=== PATIENT | male | born 1950 | race Caucasian/White ===

== ENCOUNTER 2023-05-07 15:34 | Inpatient (IN) | payer OTHER, SELFPAY ==
--- NOTE | ~2023-05-07 | XR_ITS ---
EXAMINATION: XR CHEST CLINICAL INFORMATION: SIRS. COMPARISON: None available. TECHNIQUE: Frontal view of the chest was obtained. FINDINGS: The cardiomediastinal silhouette is normal. There has been a prior median sternotomy. There is no focal lung consolidation or pleural effusion. The bony structures and soft tissues are unremarkable. XR/XR chest 1V IMPRESSION: No active cardiopulmonary disease.
--- NOTE | ~2023-05-07 | CT_ITS ---
EXAMINATION: CT ABDOMEN AND PELVIS WITH CONTRAST CLINICAL INFORMATION: Diffuse abdominal pain. COMPARISON: None available. TECHNIQUE: Multidetector volumetric images were obtained from the superior aspect of the liver through the pubic symphysis following administration 85 mL of Omnipaque 350 intravenous contrast. Sagittal and coronal reformatted images were obtained on the technologist's workstation. Oral contrast: No This CT examination was performed using dose optimization techniques as appropriate, variously including the following: *Automated exposure control *Adjustment of mA and/or kV according to patient size (this includes techniques or standardized protocols for targeted exams where dose is matched to indication/reason for exam; i.e. extremities or head) *Use of iterative reconstruction technique DLP: 720 mGy-cm FINDINGS: LUNG BASES: There is mild posterior bibasilar linear scar/subsegmental atelectasis. LIVER, GALLBLADDER, AND BILIARY TREE: The liver is normal in size, shape, and attenuation. No focal hepatic lesion or biliary ductal dilatation is present. The gallbladder is unremarkable with no evidence of radiopaque gallstones, gallbladder wall thickening, or obvious pericholecystic inflammatory changes. PANCREAS: Unremarkable. SPLEEN: Unremarkable. ADRENAL GLANDS: Unremarkable. KIDNEYS AND URETERS: The kidneys are normal in size and shape. At the upper pole and interpolar aspect of the left kidney laterally (3:42 and 6:64), there is a sharply demarcated wedge-shaped perfusion defect noted. There is adjacent perinephric fat stranding. No bilateral hydronephroureter or urinary calculus is seen. BLADDER: Unremarkable. GASTROINTESTINAL TRACT: The small and large bowel are unremarkable. The appendix is unremarkable. ABDOMINAL WALL: There is a small fat-containing umbilical hernia. LYMPH NODES: Normal. VASCULAR: There is very mild aortic atherosclerotic calcification. No abdominal aortic aneurysm or dissection is seen. PELVIC VISCERA: The prostate and seminal vesicles are unremarkable. OSSEOUS STRUCTURES: There is multi-level marked thoracolumbar degenerative disc disease, spondylosis and facet arthropathy. In particular, there is vacuum disc phenomenon noted at T10-T11 and L4-L5. No acute or aggressive osseous finding is seen. Sternotomy wires are noted. CT/CT abdomen pelvis w IV con IMPRESSION: A large wedge-shaped perfusion defect is seen of the upper pole and interpolar aspect of the left kidney. There is adjacent perinephric stranding. No obstructive uropathy or calculus is noted. The imaging findings are most consistent with focal pyelonephritis or a focal renal infarction. Further differential considerations including drug-induced interstitial nephritis and renal lymphoma are considered unlikely. Recommend clinical correlation, including correlation with the patient's most recent urinalysis. Fleischner guidelines were followed.
[2023-05-07 16:30] VITALS: BP 162/93; PULSE 99; RESP 18; TEMP 37.1; O2SAT 96; BMI 28.1
--- NOTE | 2023-05-07 16:31 | ED.ABDPAIN ---
HPI - Abdominal Pain General Chief Complaint: Abdominal Pain Stated Complaint: abdominal pain, not eating since friday Time Seen by Provider: 05/07/23 17:31 Related Data Home Medications Medication Instructions Recorded Confirmed ascorbic acid (vitamin C) 500 mg 500 mg PO DAILY 05/07/23 05/07/23 tablet atorvastatin 40 mg tablet 40 mg PO BEDTIME 05/07/23 05/07/23 cholecalciferol (vitamin D3) 25 25 mcg PO DAILY 05/07/23 05/07/23 mcg (1,000 unit) tablet docusate sodium 100 mg capsule 200 mg PO BEDTIME 05/07/23 05/07/23 esomeprazole magnesium 40 mg 40 mg PO QAM 05/07/23 05/07/23 capsule,delayed release finasteride 5 mg tablet 5 mg PO DAILY 05/07/23 05/07/23 meclizine 25 mg tablet 25 mg PO BID 05/07/23 05/07/23 multivitamin 1 tab PO DAILY 05/07/23 05/07/23 tamsulosin 0.4 mg capsule 0.4 mg PO BEDTIME 05/07/23 05/07/23 warfarin 2 mg tablet 2 mg PO MOWEFR 05/07/23 05/07/23 warfarin 4 mg tablet 4 mg PO SUTUTHSA 05/07/23 05/07/23 Allergies Allergy/AdvReac Type Severity Reaction Status Date / Time No Known Allergies Allergy Verified 05/07/23 16:30 [facility] Past Medical History Medical History (Updated 05/11/23 @ 14:28 by Tod Clemens MD) BPV (benign positional vertigo) BPH (benign prostatic hyperplasia) HLD (hyperlipidemia) Surgical History (Updated 05/11/23 @ 14:28 by Tod Clemens MD) Mechanical heart valve present Social History Social History Household Members: None Housing: Apartment Do you presently have visiting nurse or other home services: No Patient Tobacco Use Status: Never used Tobacco Smoked in Last 30 Days: No Use of substances other than those prescribed or required for medical reasons: No Currently Displaying Signs/Symptoms of Drug Intoxication Withdrawal: No Have you been hit, kicked, punched, or otherwise hurt by someone within the past year? If so, by whom?: No Do you feel safe in your current relationship?: No Current Relationship Is there a partner from a previous relationship who is making you feel unsafe now?: No Are you made to feel afraid or neglected: No Adventism Healthcare Practices: Alev[facility] Advance Directives: No Advance Directives Information Provided: No Do you have thoughts of harming others: None Do you have a plan to hurt others: No Plan Recently lost weight without trying: Unsure How much weight loss: Unsure Eating poorly because of decreased appetite: Yes Nutrition screen score: 5 Nutrition Risks: Poor intake 0-25% >4 days Poor oral hygiene: No service: No Physical Exam ED Vital Signs: BMI result Body Mass Index 28.1 Course Course Course Narrative: RME: 73-year-old male with no significant past medical history presenting to the ED complaining of lower abdominal pain and nausea x3 days. Also reports generalized fatigue/weakness and dizziness & fever. denies constipation/diarrhea, dysuria/hematuria Abdomen soft/nontender Labs, UA ordered Full HPI, ROS and PE to be performed by primary ED provider. Medical Decision Making Lab Data 05/13/23 06:02 05/11/23 07:35 Labs: Lab Results 05/07/23 05/07/23 05/07/23 Range/Units 17:09 18:50 19:50 WBC 18.9 H (4.8-10.8) X10*3/uL RBC 5.28 (4.60-5.80) X10*6/uL Hgb 16.6 (14.0-18.0) g/dl Hct 47.8 (42.0-52.0) % MCV 90.5 (80.0-98.0) fL MCH 31.4 (27.0-33.0) pg MCHC 34.7 (31.0-36.0) g/dl RDW 13.1 (11.0-16.0) % Plt Count 130 L (160-400) X10*3/uL MPV 12.9 H (9.4-12.4) fL Immature Gran % (Auto) 0.4 (0.0-0.4) % Neut % (Auto) 84.5 H (45-73) % Lymph % (Auto) 6.7 L (20-40) % [place] % (Auto) 8.1 (2-11) % Eos % (Auto) 0.2 (0-4) % Baso % (Auto) 0.1 (0-2) % Lymph # (Auto) 1.3 (1.2-4.9) X10*3/uL [place] # (Auto) 1.5 H (0.1-1.2) X10*3/uL Eos # (Auto) 0.0 (0.0-0.4) X10*3/uL Baso # (Auto) 0.0 (0.0-0.2) X10*3/uL Abs Immat Gran (auto) 0.08 H (0.00-0.03) X10*3/uL Absolute Neuts (auto) 16.0 H (2.0-8.3) x10*3/uL Absolute Nucleated RBC 0.000 (0.0-0.012) X10*3/uL Nucleated RBC % (auto) 0.0 (0.0-0.2) /100WBC Smear Tech's Comments VERIFIED PT 31.0 H (11.1-13.3) SEC INR 2.5 H (0.9-1.1) Sodium 137 (135-145) mmol/L Potassium 4.3 (3.3-5.1) mmol/L Chloride 102 (96-108) mmol/L Carbon Dioxide 24 (22-29) mmol/L Anion Gap 15 (12-20) BUN 13 (9-16) mg/dL Creatinine 1.62 H (0.5-1.4) mg/dL Estim Creat Clear Calc 44.1 Estimated GFR 42 Random Glucose 171 H (60-115) mg/dL Calcium 9.5 (8.4-10.2) mg/dL Magnesium 1.8 (1.6-2.6) mg/dL Total Bilirubin 2.3 H (0.0-1.0) mg/dL Direct Bilirubin 0.7 H (0.0-0.5) mg/dL AST 38 H (5-37) U/L ALT 36 (0-40) U/L Alkaline Phosphatase 98 (39-117) U/L Troponin I High Sens 6.0 (<3.5-35.0) ng/L Total Protein 7.8 (6.5-8.0) g/dL Albumin 4.3 (3.5-5.0) g/dL Lipase 12 (8-78) U/L Urine Color Dark Yellow Urine Appearance Clear Urine pH 6.0 (5.0-9.0) Ur Specific [place] >= 1.030 H (1.005-1.025) Urine Protein 30 (1+) H (Neg-Trace) mg/dL Urine Glucose (UA) Negative (Negative) mg/dL Urine Ketones Negative (Negative) mg/dL Urine Blood Negative (Negative) Urine Nitrite Negative (Negative) Ur Leukocyte Esterase Negative (Negative) Urine RBC 3-5 H (0-2) /HPF Urine WBC 0-5 (0-5) /HPF Ur Squamous Epith Cells 0-2 (0-2) /HPF Urine Bacteria None Seen (None Seen) Hyaline Casts 0-2 (0-2) /LPF Medications Administered Generic Name Dose Route Start Last Admin Trade Name Freq PRN Reason Stop Dose Admin Acetaminophen 650 mg 05/12/23 15:28 05/12/23 15:50 Acetaminophen 325 Mg Tablet PO 650 mg Q6H PRN Administration Pain, Mild (Pain Scale 1-3) Al Hydroxide/Mg Hydroxide 30 ml 05/07/23 21:50 05/10/23 02:33 Magnesium Hydrox/Alum Hydrox 30 Ml Oral.Susp PO 30 ml Q4H PRN Administration Heartburn/Nausea Ascorbic Acid 500 mg 05/08/23 09:00 05/13/23 08:02 Ascorbic Acid 500 Mg Tablet PO 500 mg DAILY DUSTIN Administration Aspirin 81 mg 05/08/23 11:05 05/13/23 08:02 Aspirin Enteric Coated 81 Mg Tablet.Dr PO 81 mg DAILY DUSTIN Administration Atorvastatin Calcium 40 mg 05/08/23 21:00 05/12/23 20:42 Atorvastatin Calcium 40 Mg Tablet PO 40 mg BEDTIME DUSTIN Administration Dicyclomine HCl 10 mg 05/12/23 11:30 05/13/23 11:53 Dicyclomine Hcl 10 Mg Capsule PO 10 mg QIDACHS DUSTIN Administration Docusate Sodium 200 mg 05/08/23 21:00 05/12/23 20:43 Docusate Sodium 100 Mg Capsule PO 200 mg BEDTIME DUSTIN Administration Finasteride 5 mg 05/08/23 21:00 05/13/23 08:02 Finasteride 5 Mg Tablet PO 5 mg DAILY DUSTIN Administration Meclizine HCl 25 mg 05/08/23 09:00 05/13/23 08:01 Meclizine Hcl 25 Mg Tablet PO 25 mg BID DUSTIN Administration Melatonin 6 mg 05/07/23 21:50 05/08/23 20:12 Melatonin 3 Mg Tablet PO 6 mg BEDTIME PRN Administration Insomnia Metoprolol Tartrate 25 mg 05/10/23 09:55 05/13/23 08:01 Metoprolol Tartrate 25 Mg Tablet PO 25 mg BID DUSTIN Administration Protocol Morphine Sulfate 2 mg 05/13/23 09:20 05/13/23 09:46 Morphine Sulfate 2 Mg/Ml Cartridge IVPUSH 2 mg Q4H PRN Administration Pain, Severe (Pain Scale 7-10) Protocol Multivitamins/Vitamin C 1 tab 05/08/23 09:00 05/13/23 08:00 Multivitamin Tablet PO 1 tab DAILY DUSTIN Administration Nifedipine 30 mg 05/08/23 09:45 05/13/23 08:02 Nifedipine Er 30 Mg Tab.Er.24 PO 30 mg DAILY DUSTIN Administration Protocol Omeprazole 20 mg 05/09/23 16:30 05/13/23 05:53 Omeprazole 20 Mg Capsule.Dr PO 20 mg BID@0630,1630 DUSTIN Administration Ondansetron HCl 4 mg 05/07/23 21:50 05/13/23 11:53 Ondansetron Hcl 4 Mg/2 Ml Vial IVPUSH 4 mg Q8H PRN Administration Nausea and Vomiting Polyethylene Glycol 17 gm 05/11/23 11:50 05/13/23 08:02 Polyethylene Glycol 3350 17 Gm Powd.Pack PO 17 gm BID DUSTIN Administration Simethicone 80 mg 05/08/23 15:35 05/13/23 11:53 Simethicone 80 Mg Tab.Chew PO 80 mg QIDWMHS DUSTIN Administration Sodium Chloride 3 ml 05/08/23 00:00 05/13/23 08:10 0.9 % Sodium Chloride Flush 3 Ml Syringe IVFLUSH 3 ml QSHIFT DUSTIN Administration Tamsulosin HCl 0.4 mg 05/08/23 21:00 05/12/23 20:43 Tamsulosin Hcl 0.4 Mg Capsule PO 0.4 mg BEDTIME DUSTIN Administration Vitamin D 25 mcg 05/08/23 09:00 05/13/23 08:02 Cholecalciferol (Vitamin D3) 25 Mcg Tablet PO 25 mcg DAILY DUSTIN Administration Warfarin Sodium 2 mg 05/12/23 09:00 05/12/23 08:56 Warfarin Sodium 2 Mg Tablet PO 2 mg [id number] DUSTIN Administration Warfarin Sodium 4 mg 05/11/23 09:00 05/13/23 08:01 Warfarin Sodium 4 Mg Tablet PO 4 mg [id number] DUSTIN Administration Discontinued Medications Generic Name Dose Route Start Last Admin Trade Name Freq PRN Reason Stop Dose Admin Belladonna Alkaloids/Phenobarbital 5 ml 05/09/23 10:46 05/09/23 11:14 Phenobarb/Hyoscy/Atropine/Scop 10 Ml Elixir PO 05/09/23 10:47 5 ml ONCE ONE Administration Belladonna Alkaloids/Phenobarbital 5 ml 05/10/23 10:00 05/11/23 08:41 Phenobarb/Hyoscy/Atropine/Scop 10 Ml Elixir PO 5 ml TID DUSTIN Administration Belladonna Alkaloids/Phenobarbital 5 ml 05/11/23 11:13 05/11/23 16:28 Phenobarb/Hyoscy/Atropine/Scop 10 Ml Elixir PO 5 ml TID PRN Administration Abdominal pain Enoxaparin Sodium 90 mg 05/08/23 07:15 05/08/23 08:13 Enoxaparin Sodium 100 Mg/Ml Syringe 1 mg/kg (90 mg) 90 mg SUBCUT Administration Q12H [facility] Enoxaparin Sodium 90 mg 05/12/23 10:00 05/12/23 21:58 Enoxaparin Sodium 100 Mg/Ml Syringe 1 mg/kg (90 mg) 90 mg SUBCUT Administration Q12H [facility] Finasteride 5 mg 05/08/23 09:00 05/08/23 09:41 Finasteride 5 Mg Tablet PO Not Given DAILY [facility] Dextrose/Sodium Chloride 1,000 mls @ 100 mls/hr 05/07/23 22:00 05/09/23 15:59 D51/2ns IVCONT Infused .Q10H [facility] Infusion Ceftriaxone Sodium 1 gm/ 50 mls @ 100 mls/hr 05/09/23 15:45 05/10/23 15:58 Sodium Chloride IV Infused Q24H [facility] Infusion Lactated Ringer's 1,000 mls @ 100 mls/hr 05/10/23 11:00 05/11/23 08:17 Lr IVCONT 05/11/23 06:00 Infused .Q10H DUSTIN Infusion Lactulose 20 gm 05/08/23 15:35 05/09/23 09:47 Lactulose 20 Gm/30 Ml Solution PO Not Given BID DUSTIN Morphine Sulfate 2 mg 05/07/23 21:52 05/10/23 20:19 Morphine Sulfate 2 Mg/Ml Cartridge IVPUSH 2 mg Q6H PRN Administration Pain, Severe (Pain Scale 7-10) Protocol Omeprazole 20 mg 05/08/23 06:30 05/09/23 05:33 Omeprazole 20 Mg Capsule.Dr PO 20 mg DAILY@0630 [facility] Administration Warfarin Sodium 4 mg 05/08/23 18:00 05/08/23 17:30 Warfarin Sodium 4 Mg Tablet PO 4 mg [id number] [facility] Administration Warfarin Sodium 3.75 mg 05/08/23 00:16 05/08/23 00:54 Warfarin Sodium 1.25 Mg Halftab PO 05/08/23 00:17 3.75 mg NOW STA Administration Warfarin Sodium 5 mg 05/08/23 00:47 05/08/23 01:09 Warfarin Sodium 5 Mg Tablet PO 05/08/23 00:48 Not Given NOW STA Warfarin Sodium 1 mg 05/09/23 18:00 05/09/23 17:35 Warfarin Sodium 1 Mg Tablet PO 1 mg [email or web address] [facility] Administration Warfarin Sodium 2 mg 05/12/23 10:45 05/12/23 11:05 Warfarin Sodium 2 Mg Tablet PO 05/12/23 10:46 2 mg ONCE ONE Administration Discharge Plan Discharge Clinical Impression: Infarction of kidney Patient Disposition: Admitted As Inpatient Interventions: Admission Worksheet (ED) Last Done: 05/08/23 09:54 Discharge Date/Time: 05/08/23 09:54
--- NOTE | 2023-05-07 16:35 | ECG_ITS ---
Test Reason : ABDOMINAL PAIN Blood Pressure : / mmHG Vent. Rate : 104 BPM Atrial Rate : 104 BPM P-R Int : 154 ms QRS Dur : 130 ms QT Int : 352 ms P-R-T Axes : 039 -06 147 degrees QTc Int : 462 ms Sinus tachycardia with occasional Premature ventricular complexes Left bundle branch block Abnormal ECG No previous ECGs available Referred By: Maribell Alfredo Electronically Signed By:MARIA ESTHER YUNG
[2023-05-07 17:22] LABS: Basophils Percent Auto 0.1 % (0-2); Eosinophils Percent Auto 0.2 % (0-4); Hematocrit 47.8 % (42.0-52.0); Hemoglobin 16.6 g/dl (14.0-18.0); Imm Gran Abs Auto 0.08 X10*3/uL (0.00-0.03); Imm Gran Pct Auto 0.4 % (0.0-0.4); Lymphocytes Absolute Auto 1.3 X10*3/uL (1.2-4.9); Lymphocytes Percent Auto 6.7 % (20-40); MANUAL DIFF FLAG SCAN; Mean Corpuscular HGB Conc 34.7 g/dl (31.0-36.0); Mean Corpuscular Hemoglobin 31.4 pg (27.0-33.0); Mean Corpuscular Volume 90.5 fL (80.0-98.0); Mean Platelet Volume 12.9 fL (9.4-12.4); Monocytes Absolute Auto 1.5 X10*3/uL (0.1-1.2); Monocytes Percent Auto 8.1 % (2-11); Neutrophils Percent Auto 84.5 % (45-73); Platelet Count 130 X10*3/uL (160-400); Red Blood Count 5.28 X10*6/uL (4.60-5.80); Red Cell Distribution Width 13.1 % (11.0-16.0); SCAN SMEAR FLAG 1; White Blood Count 18.9 X10*3/uL (4.8-10.8)
[2023-05-07 17:33] LABS: Alanine Aminotransferase 36 U/L (0-40); Albumin Level 4.3 g/dL (3.5-5.0); Alkaline Phosphatase 98 U/L (39-117); Anion Gap 15 (12-20); Aspartate Amino Transferase 38 U/L (5-37); Bilirubin Direct 0.7 mg/dL (0.0-0.5); Bilirubin Total 2.3 mg/dL (0.0-1.0); Blood Urea Nitrogen 13 mg/dL (9-16); Calcium 9.5 mg/dL (8.4-10.2); Carbon Dioxide 24 mmol/L (22-29); Chloride 102 mmol/L (96-108); Creatinine Clr Calc Pharmacy 44.1; Estimated Glomerular Filt Rate 42; Glucose Random 171 mg/dL (60-115); Lipase 12 U/L (8-78); Magnesium 1.8 mg/dL (1.6-2.6); Potassium 4.3 mmol/L (3.3-5.1); Sodium 137 mmol/L (135-145); Total Protein 7.8 g/dL (6.5-8.0)
[2023-05-07 17:44] LABS: SLIDE REVIEW VERIFIED
--- NOTE | 2023-05-07 18:17 | ED_ITS ---
HPI - Abdominal Pain General Chief Complaint: Abdominal Pain Stated Complaint: abdominal pain, not eating since friday Time Seen by Provider: 05/07/23 17:31 History of Present Illness HPI narrative: Patient is a 73-year-old male presents today with having abdominal pain. The abdominal pain seems like it is like a pocket of air to patient. Decreased appetite. Mild nausea. There is no change in bowel movement. No history of abdominal surgery in past. Positive history of heart valve replacement. Patient is on Coumadin. No fever no chills. No chest pain or shortness of breath no diaphoresis. Patient is from home. Related Data Allergies Allergy/AdvReac Type Severity Reaction Status Date / Time No Known Allergies Allergy Verified 05/07/23 16:30 Review of Systems Review of Systems Positive abdominal pain Yes all other systems are reviewed and are negative PMFSH Past Medical History Attestation statement: The following information was validated with the patient. Social History Social History Smoked in Last 30 Days: No Use of substances other than those prescribed or required for medical reasons: No Advance Directives: No Advance Directives Information Provided: No Physical Exam ED Vital Signs: Vital Signs - 24 hr 05/07/23 16:30 05/07/23 18:18 05/07/23 18:19 Temperature 98.7 F Pulse Rate 99 101 H 105 H Respiratory Rate 18 Blood Pressure 162/93 H 141/97 H 135/102 H Pulse Oximetry 96 Oxygen Delivery Method Room Air 05/07/23 18:20 Temperature Pulse Rate 113 H Respiratory Rate Blood Pressure 141/105 H Pulse Oximetry Oxygen Delivery Method BMI result Body Mass Index 28.1 Appearance: Alert. Oriented X3. No acute distress. Eyes: Pupils equal, round and reactive to light. ENT: Pharynx normal. Neck: Normal inspection. Neck supple. No lymph nodes noted. No crepitus CVS: Normal heart rate and rhythm. Pulses normal. Normal S1 and S2 Respiratory: No respiratory distress. Breath sounds normal. No Wheezing. No rales Abdomen: Soft and nontender. No rigidity. No distention. good BS x4 Skin: Skin warm and dry. Normal skin color. Normal skin turgor. Extremities: No lower extremity edema. Neurovascular intact to all extremities. No Lacerations. No Rash Neuro: Oriented X 3. No motor deficit. No sensory deficit. Moving all extermities. No slurred speech Medical Decision Making Medical Decision Making [facility] Narrative: CT scan of the abdomen pelvis done as patient had elevated white count abdominal pain fairly diffuse history of having a mechanical heart valve is currently on Coumadin INR is 2.[address] scan was positive for having a left kidney infarction. Question etiology. Creatinine slightly elevated at 1.4. The findings discussed with Nephrology. Case discussed with the hospitalist team. Will admit patient for further evaluation. No additional anticoagulation at this 9. CT scan showed no obstruction no abscess no perforation. Patient's urine showed no signs of UTI. 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 05/07/23 17:09 05/07/23 17:09 Labs: Lab Results 05/07/23 05/07/23 05/07/23 Range/Units 17:09 18:50 19:50 WBC 18.9 H (4.8-10.8) X10*3/uL RBC 5.28 (4.60-5.80) X10*6/uL Hgb 16.6 (14.0-18.0) g/dl Hct 47.8 (42.0-52.0) % MCV 90.5 (80.0-98.0) fL MCH 31.4 (27.0-33.0) pg MCHC 34.7 (31.0-36.0) g/dl RDW 13.1 (11.0-16.0) % Plt Count 130 L (160-400) X10*3/uL MPV 12.9 H (9.4-12.4) fL Immature Gran % (Auto) 0.4 (0.0-0.4) % Neut % (Auto) 84.5 H (45-73) % Lymph % (Auto) 6.7 L (20-40) % [place] % (Auto) 8.1 (2-11) % Eos % (Auto) 0.2 (0-4) % Baso % (Auto) 0.1 (0-2) % Lymph # (Auto) 1.3 (1.2-4.9) X10*3/uL [place] # (Auto) 1.5 H (0.1-1.2) X10*3/uL Eos # (Auto) 0.0 (0.0-0.4) X10*3/uL Baso # (Auto) 0.0 (0.0-0.2) X10*3/uL Abs Immat Gran (auto) 0.08 H (0.00-0.03) X10*3/uL Absolute Neuts (auto) 16.0 H (2.0-8.3) x10*3/uL Absolute Nucleated RBC 0.000 (0.0-0.012) X10*3/uL Nucleated RBC % (auto) 0.0 (0.0-0.2) /100WBC Smear Tech's Comments VERIFIED PT 31.0 H (11.1-13.3) SEC INR 2.5 H (0.9-1.1) Sodium 137 (135-145) mmol/L Potassium 4.3 (3.3-5.1) mmol/L Chloride 102 (96-108) mmol/L Carbon Dioxide 24 (22-29) mmol/L Anion Gap 15 (12-20) BUN 13 (9-16) mg/dL Creatinine 1.62 H (0.5-1.4) mg/dL Estim Creat Clear Calc 44.1 Estimated GFR 42 Random Glucose 171 H (60-115) mg/dL Calcium 9.5 (8.4-10.2) mg/dL Magnesium 1.8 (1.6-2.6) mg/dL Total Bilirubin 2.3 H (0.0-1.0) mg/dL Direct Bilirubin 0.7 H (0.0-0.5) mg/dL AST 38 H (5-37) U/L ALT 36 (0-40) U/L Alkaline Phosphatase 98 (39-117) U/L Troponin I High Sens 6.0 (<3.5-35.0) ng/L Total Protein 7.8 (6.5-8.0) g/dL Albumin 4.3 (3.5-5.0) g/dL Lipase 12 (8-78) U/L Urine Color Dark Yellow Urine Appearance Clear Urine pH 6.0 (5.0-9.0) Ur Specific [place] >= 1.030 H (1.005-1.025) Urine Protein 30 (1+) H (Neg-Trace) mg/dL Urine Glucose (UA) Negative (Negative) mg/dL Urine Ketones Negative (Negative) mg/dL Urine Blood Negative (Negative) Urine Nitrite Negative (Negative) Ur Leukocyte Esterase Negative (Negative) Urine RBC 3-5 H (0-2) /HPF Urine WBC 0-5 (0-5) /HPF Ur Squamous Epith Cells 0-2 (0-2) /HPF Urine Bacteria None Seen (None Seen) Hyaline Casts 0-2 (0-2) /LPF Independent Interpretation I performed an independent interpretation of an: EKG (My interpretation of patient's EKG showed a sinus pattern with a heart rate approximately 70. There is a left bundle-branch blocks) and CT Scan Interpretation: no overt obstruction abscess Radiology Impression Discussion of test interpretation with radiology: I have reviewed the radiologist's reading. Independent Historian Clinical information obtained from an independent historian. History obtained from or confirmed by: Spouse Chronic Conditions History of having a mechanical heart valve. Discharge Plan Discharge Clinical Impression: Infarction of kidney Patient Disposition: Admitted As Inpatient
[2023-05-07 18:18] VITALS: BP 141/97; PULSE 101
[2023-05-07 18:19] VITALS: BP 135/102; PULSE 105
[2023-05-07 18:20] VITALS: BP 141/105; PULSE 113
[2023-05-07 19:02] LABS: INTERNATIONAL NORM RATIO 2.5 (0.9-1.1)
--- NOTE | 2023-05-07 19:18 | PC.NURSE ---
This news writer assumed care at 1900, [place] speaking, AOx4, pt speaking in full sentences, pt reporting 2/10 lower abdominal pain x3 days. Reporting weakness, with decreased PO intake. Lung sounds clear bilaterally, denies CP/SOB. Meds given per MAR, pt resting with no apparent distress, Family at bedside, updated with plan of care.
[2023-05-07 20:08] LABS: Appearance Urine Clear; Color Urine Dark Yellow; Glucose Urine UA Negative (Negative); Leukocyte Esterase Urine Negative (Negative); Nitrite Urine Negative (Negative); Specific Gravity - Urine >= 1.030 (1.005-1.025); UMIC TRIGGER UACC YES; Urine Blood Negative (Negative); Urine Ketones Negative (Negative); Urine Protein 30 (1+) mg/dL (Neg-Trace)
[2023-05-07 20:10] LABS: Bacteria Urine None Seen (None Seen); Hyaline Casts Urine 0-2 /LPF (0-2); Squamous Epithelial Cell Urine 0-2 /HPF (0-2); WBC Urine 0-5 /HPF (0-5)
--- NOTE | 2023-05-07 21:10 | PHA.MEDREC ---
Pharmacy Consult ? Medication Reconciliation Pharmacy has completed the medication reconciliation. Patient reported medications. Reported Atorvastatin however no claim history. Chante Iniguez, ZoraD
--- NOTE | 2023-05-07 21:30 | PM.IMHP ---
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 He is a predominantly Polish-speaking patient; her daughter, who speaks, preferred to translate instead of an photograph tinter. The patient was brought to the ED for evaluation of 3 days of abdominal pain in the lower abdomen of various intensity, constant, associated with nausea, but no vomiting, no fever, and normal bowel function. Work up: WBC 18 K,? Cr 1.6 ( last record at [facility] in 2020 was 1.4). CT of the abdomen and pelvis show: A large wedge-shaped perfusion defect in the upper pole and interpolar aspect of the left kidney. There is adjacent perinephric stranding. No obstructive uropathy or calculus is noted. The imaging findings are most consistent with focal pyelonephritis or a focal renal infarction. UA: increase specific gravity, high protein, normal nitrite, and leukocytes) has no dysuria.? Review of Systems Review of Systems: Gen: no fever Resp: no sob, no cough CV: no chest, no ALDRIDGE, no leg edema GI: No n/v, + abd pain Neuro: No confusion Yes all other systems are reviewed and are negative [facility] Medical History (Updated 05/09/23 @ 15:58 by Aron Peralta MD) BPV (benign positional vertigo) BPH (benign prostatic hyperplasia) HLD (hyperlipidemia) Surgical History (Updated 05/08/23 @ 12:02 by Jesus Vyas MD) Mechanical heart valve present Social History Household Members: None Housing: Apartment Do you presently have visiting nurse or other home services: No Patient Tobacco Use Status: Never used Tobacco Smoked in Last 30 Days: No Use of substances other than those prescribed or required for medical reasons: No Currently Displaying Signs/Symptoms of Drug Intoxication Withdrawal: No Have you been hit, kicked, punched, or otherwise hurt by someone within the past year? If so, by whom?: No Do you feel safe in your current relationship?: No Current Relationship Is there a partner from a previous relationship who is making you feel unsafe now?: No Are you made to feel afraid or neglected: No L[employer] Healthcare Practices: Jainism Advance Directives: No Advance Directives Information Provided: No Do you have thoughts of harming others: None Do you have a plan to hurt others: No Plan Recently lost weight without trying: Unsure How much weight loss: Unsure Eating poorly because of decreased appetite: Yes Nutrition screen score: 5 Nutrition Risks: Poor intake 0-25% >4 days Poor oral hygiene: No service: No Meds Allergies Allergy/AdvReac Type Severity Reaction Status Date / Time No Known Allergies Allergy Verified 05/07/23 16:30 Home Medications Medication Instructions Recorded Confirmed Last Taken Type ascorbic acid (vitamin C) 500 mg 500 mg PO DAILY 05/07/23 05/07/23 Unknown History tablet atorvastatin 40 mg tablet 40 mg PO BEDTIME 05/07/23 05/07/23 Unknown History cholecalciferol (vitamin D3) 25 25 mcg PO DAILY 05/07/23 05/07/23 Unknown History mcg (1,000 unit) tablet docusate sodium 100 mg capsule 200 mg PO BEDTIME 05/07/23 05/07/23 Unknown History esomeprazole magnesium 40 mg 40 mg PO QAM 05/07/23 05/07/23 Unknown History capsule,delayed release finasteride 5 mg tablet 5 mg PO DAILY 05/07/23 05/07/23 Unknown History meclizine 25 mg tablet 25 mg PO BID 05/07/23 05/07/23 Unknown History multivitamin 1 tab PO DAILY 05/07/23 05/07/23 Unknown History tamsulosin 0.4 mg capsule 0.4 mg PO BEDTIME 05/07/23 05/07/23 Unknown History warfarin 2 mg tablet 2 mg PO MOWEFR 05/07/23 05/07/23 Unknown History warfarin 4 mg tablet 4 mg PO SUTUTHSA 05/07/23 05/07/23 Unknown History Physical Exam Vital Signs and Narrative: Vital Signs: Last Vital Signs Temp 98.7 F 05/07/23 16:30 Pulse 113 H 05/07/23 18:20 Resp 18 05/07/23 16:30 BP 141/105 H 05/07/23 18:20 Pulse Ox 96 05/07/23 16:30 O2 Del Method Room Air 05/07/23 16:30 BMI result Body Mass Index 28.1 Const: Other: Constitutional: Alert, in no distress, overweight. Mental Status: Oriented to person, place and time. Eyes: Pupils are equal, round and reactive to light. Ear, Nose and Throat: Oropharynx clear, mucous membranes moist. Ears and nose without eformities. Respiratory: Clear to auscultation. No wheezing, rales or rhonchi. Cardiovascular: S1 S2 regular. No murmurs, rubs or gallops. Gastrointestinal: Abdomen soft, non-tender, non-distended. Normal bowel sounds.? Neurologic: Cranial nerves II-XII grossly intact. No focal neurological deficits. Moves all extremities spontaneously.? Skin: No rashes or lesions.? Musculoskeletal: No cyanosis or clubbing. Psychiatric: Normal mood and affect? Results Labs 05/09/23 06:28 05/09/23 06:28 Labs: Laboratory Results - last 24 hr 05/07/23 05/07/23 05/07/23 17:09 18:50 19:50 MCV 90.5 MCH 31.4 MCHC 34.7 RDW 13.1 Plt Count 130 L MPV 12.9 H Immature Gran % (Auto) 0.4 Neut % (Auto) 84.5 H Lymph % (Auto) 6.7 L Meriwether % (Auto) 8.1 Eos % (Auto) 0.2 Baso % (Auto) 0.1 Lymph # (Auto) 1.3 Meriwether # (Auto) 1.5 H Eos # (Auto) 0.0 Baso # (Auto) 0.0 Abs Immat Gran (auto) 0.08 H Absolute Neuts (auto) 16.0 H Absolute Nucleated RBC 0.000 Nucleated RBC % (auto) 0.0 Smear Tech's Comments VERIFIED PT 31.0 H INR 2.5 H Anion Gap 15 Estim Creat Clear Calc 44.1 Estimated GFR 42 Random Glucose 171 H Calcium 9.5 Magnesium 1.8 Total Bilirubin 2.3 H Direct Bilirubin 0.7 H AST 38 H ALT 36 Alkaline Phosphatase 98 Total Protein 7.8 Albumin 4.3 Lipase 12 Urine Color Dark Yellow Urine Appearance Clear Urine pH 6.0 Ur Specific Ashley >= 1.030 H Urine Protein 30 (1+) H Urine Glucose (UA) Negative Urine Ketones Negative Urine Blood Negative Urine Nitrite Negative Ur Leukocyte Esterase Negative Urine RBC 3-5 H Urine WBC 0-5 Ur Squamous Epith Cells 0-2 Urine Bacteria None Seen Hyaline Casts 0-2 Imaging Radiologist's Impressions: Impressions Abdomen/Pelvis CT 05/07/23 19:31 IMPRESSION: A large wedge-shaped perfusion defect is seen of the upper pole and interpolar aspect of the left kidney. There is adjacent perinephric stranding. No obstructive uropathy or calculus is noted. The imaging findings are most consistent with focal pyelonephritis or a focal renal infarction. Further differential considerations including drug-induced interstitial nephritis and renal lymphoma are considered unlikely. Recommend clinical correlation, including correlation with the patient's most recent urinalysis. Fleischner guidelines were followed. 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 Continue coumadin at this time, increase dose with goal of INR 3 to 3.5 Nephro consult in AM, hypercoag work up. youth nutritional monitor to exclude AFIB BPH-- continue finasteride, Flomax. Leukocytosis + Tachycardia (SIRS) likely related to renal infarct, UA doesn't, negative fever doesn't support Pyelonephritis. MACRIO--Probablye CKD 3, Last known creatine at [facility] in Aug 2020 was 1. 4, IVF, recheck in AM, Nephro consult as stated Mechanical heart valve--Details not available ( since age 47), will get xray to see if will help delineate this DVT p: coumadin Full code Admit for at least 2 midnights for management of acute renal infarct, MARCIO Time Spent With Patient Time: Total time managing care of this patient today ____ minutes. Quality Stroke Does the patient have a stroke diagnosis?: No VTE Prior VTE?: No VTE Risk Level:: Medical - moderate - high VTE Device Contraindication: Treatment Not Indicated VTE Drug Contraindication: N/A - Med Ordered
[2023-05-07] MEDS: Dextrose 5 % and 0.45 % NaCl 1,000 ML 100 ML IVCONT (22:50)
[2023-05-07 23:00] VITALS: BP 142/86; PULSE 98; RESP 12; TEMP 36.9; O2SAT 95
[2023-05-08] MEDS: Warfarin Sodium 1.25 MG HALFTAB 3.75 MG PO (00:54)
--- NOTE | 2023-05-08 00:59 | PC.NURSE ---
1.25 mg warfarin tablets not available in [facility] or in house, pharmacy called and suggested provider to change order. Provider Dr. Holloway made aware. New order for 3.75 mg warfarin, [facility] will not let remove 5 mg warfarin tablet. Override made by charge nurse Arminda. Warfarin given.
[2023-05-08 05:20] VITALS: PULSE 99; RESP 19
--- NOTE | 2023-05-08 05:22 | PC.NURSE ---
Pt appears to be sleeping, awakens easily with verbal stimuli, IV fluids running per MAR. Pt using urinal at bedside. Pt remains NPO. Pt updated on plan of care.
[2023-05-08 06:00] VITALS: BP 144/101; PULSE 97; RESP 16; O2SAT 96
[2023-05-08 06:29] LABS: MANUAL DIFF FLAG NO
[2023-05-08 06:42] LABS: INTERNATIONAL NORM RATIO 2.7 (0.9-1.1); Prothrombin Time 32.5 SEC (11.1-13.3)
[2023-05-08 06:48] LABS: Alanine Aminotransferase 37 U/L (0-40); Albumin Level 3.8 g/dL (3.5-5.0); Alkaline Phosphatase 92 U/L (39-117); Anion Gap 15 (12-20); Aspartate Amino Transferase 37 U/L (5-37); Bilirubin Total 1.7 mg/dL (0.0-1.0); Blood Urea Nitrogen 12 mg/dL (9-16); Calcium 9.2 mg/dL (8.4-10.2); Carbon Dioxide 22 mmol/L (22-29); Chloride 101 mmol/L (96-108); Estimated Glomerular Filt Rate 47; Glucose Random 193 mg/dL (60-115); Potassium 3.9 mmol/L (3.3-5.1); Sodium 134 mmol/L (135-145)
[2023-05-08] MEDS: Omeprazole 20 MG CAPSULE.DR PO (06:53)
[2023-05-08 06:57] LABS: Basophils Percent Auto 0.2 % (0-2); Hematocrit 45.3 % (42.0-52.0); Hemoglobin 15.6 g/dl (14.0-18.0); Imm Gran Abs Auto 0.11 X10*3/uL (0.00-0.03); Imm Gran Pct Auto 0.6 % (0.0-0.4); Lymphocytes Absolute Auto 1.2 X10*3/uL (1.2-4.9); Lymphocytes Percent Auto 6.8 % (20-40); Mean Corpuscular HGB Conc 34.4 g/dl (31.0-36.0); Mean Corpuscular Hemoglobin 31.8 pg (27.0-33.0); Mean Corpuscular Volume 92.3 fL (80.0-98.0); Mean Platelet Volume 13.6 fL (9.4-12.4); Monocytes Absolute Auto 1.4 X10*3/uL (0.1-1.2); Monocytes Percent Auto 8.3 % (2-11); Neutrophils Absolute Auto 14.5 x10*3/uL (2.0-8.3); Neutrophils Percent Auto 84.1 % (45-73); Platelet Count 107 X10*3/uL (160-400); Red Blood Count 4.91 X10*6/uL (4.60-5.80); Red Cell Distribution Width 13.2 % (11.0-16.0); White Blood Count 17.3 X10*3/uL (4.8-10.8)
--- NOTE | 2023-05-08 07:00 | CA_ITS ---
Transthoracic Echocardiogram Patient (Last, First, Middle): Ean Brown, Gender: Male Date of : 1950 Age: 73 Procedure Date: 05/08/2023 Procedure Type: Transthoracic Echocardiogram Location: S3E Height: 175.26 cm Weight: 86.18 kg BSA: 2.02 m2 Heart Rate: 90 bpm BP: 139 / 101 mmHg Environmental Web Crawler: SRINIVAS/ROMAINE Referring MD: Miguel Holloway MD Symptoms: thromboembolism to kidney Study Quality: Fair, contrast ECG Rhythm: Sinus Conclusions: - The left ventricular systolic function is normal. The visually estimated ejection fraction is between 55-60%. - There is moderate septal asymmetric hypertrophy. - A mechanical prosthetic aortic valve is present. The prosthetic aortic valve appears to be functioning normally. 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 Findings Procedure Information Contrast agent, definity, is being given per protocol without apparent complications. Left Ventricle Normal left ventricular cavity size. The left ventricular systolic function is normal. The visually estimated ejection fraction is between 55-60%. There is no evidence of regional wall motion abnormalities. Evidence suggests grade I (mild) diastolic dysfunction. There is moderate septal asymmetric hypertrophy. (septal measurement probably overestimate) Right Ventricle Normal right ventricular cavity size. There is mildly decreased right ventricular systolic function. Atria Both atria are normal in size. Aortic Valve A mechanical prosthetic aortic valve is present. The prosthetic aortic valve appears to be functioning normally. The aortic valve was not well visualized. The mean gradient is 9 mmHg. The aortic valve area is 1.93 cm2. There is no aortic valve regurgitation. Mitral Valve The mitral valve appears normal. There is trace mitral valve regurgitation. There is no mitral valve stenosis. Pulmonic Valve The pulmonic valve is likely normal. Tricuspid Valve Normal tricuspid valve structure. There is trace tricuspid valve regurgitation. There is no evidence of pulmonary hypertension. Great Vessels The asc aorta is normal in size. 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 Venous The inferior vena cava was not well visualized. Pericardium/Pleural There is no evidence of pericardial effusion. Prior Study Comparison No prior study available for comparison. Measurements 2D Linear Measurements IVSd: 2.14 0.6-0.9/0.6-1.0 cm LVIDd: 3.20 3.9-5.3/4.2-5.9 cm LVIDd Index: 1.58 2.4-3.2/2.2-3.1 cm/m2 LVIDs: 2.22 2.0-3.6 cm LVPWd: 0.69 0.7-1.1 cm LV Mass: 194.40 67-162/88-224 g LV Mass Index: 96.24 43-95/49-115 g/m2 LVOT Diam: 2.30 3.0+(-)1.3 cm 2D Systolic Function EF 4C: 41.30 >55% EF 2C: 55.20 >55% EF BiP: 47.80 >55% Mitral Valve MV Pk E: 0.36 MV PK A: 0.88 MV Decel Time: 118.00 E/A: 0.40 E'Lateral: 6.85 E/E' Lat: 5.20 PHT: 34.00 MVA PHT: 6.47 Decel Rich: 3.02 Aortic Valve AoV Pk Live: 1.87 AoV Mn Live: 1.45 AoV VTI: 0.28 AoV Pk Grad: 14.00 Aov Mn Grad: 9.00 JACQUELINE Cont.VTI: 1.93 LVOT LVOT Pk Live: 0.79 LVOT Mn Live: 0.57 LVOT VTI: 0.13 LVOT Pk Grad: 2.00 LVOT Mn Grad: 2.00 LVOT Diam: 2.30 LVOT Area: 4.15 Diastolic Function MV Pk E: 0.36 MV Pk A: 0.88 E/A: 0.40 E' Laterial: 6.85 E/E' Lat: 5.20 Right Ventricle TAPSE (mm): 14.10 TVS' Live: 8.27 Tricuspid Valve TR Pk Live: 1.94 TR Pk Grad: 15.00 RA Press: 3.00 RVSP: 18.00 Great Vessels Aorta Sinus of Valsalva: 3.70 2.0-3.5 cm Ao Asc: 3.40 2.1-3.4 cm Ao Arch: 4.10 Pulmonary Valve PV Pk Live: 0.81 Peak PV Grad: 3.00 Updated in Other Vendor System with Status of Final Jesus Vyas MD electronically signed on 05/08/2023 12:56:37 PM with status of Final
--- NOTE | 2023-05-08 08:41 | PC.NURSE ---
nurse-nurse report given
[2023-05-08] MEDS: Dextrose 5 % and 0.45 % NaCl 1,000 ML 100 ML IVCONT (09:23)
[2023-05-08] MEDS: Multivitamin TABLET 1 TAB PO (09:40)
[2023-05-08] MEDS: Ascorbic Acid 500 MG TABLET PO (09:40)
[2023-05-08] MEDS: Cholecalciferol (Vitamin D3) 25 MCG TABLET PO (09:40)
[2023-05-08] MEDS: Meclizine HCl 25 MG TABLET PO (09:40)
[2023-05-08 09:49] VITALS: BP 147/79; PULSE 86; RESP 16; TEMP 36.6; O2SAT 95
[2023-05-08 09:50] VITALS: BMI 27.8
--- NOTE | 2023-05-08 10:20 | PM.CNCAR ---
History of Present Illness History of Present Illness Date of Service: 05/08/23 Chief complaint: MARCIO,Renal infarct Narrative: This is a cardiology consultation regarding question of cardiac source of embolus. Patient is Iraqi-speaking but he is able to speak some Bahamian. Also, I used a lang interpreter to communicate. He states that he used to go to a college and career counselor in [place] but has not been there recently. Apparently, has a history of mechanical valve replacement-seems aortic valve replacement for records. That was done for severe aortic stenosis. Around 1996 or so. He is on long-term warfarin but do not see any aspirin list. Current presentation is because of abdominal pain for the last few days. 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 Hence Cardiology has been consulted. With regard to the anticoagulation, INR is 2.5 on arrival but today it is 3.1. Hence definitely not subtherapeutic. Review of Systems Review of Systems: Yes all other systems are reviewed and are negative Constitutional: Constitutional: Reports as per HPI and Reports no additional constitutional complaints Eyes: Eyes: Reports as per HPI and Denies no additional eye complaints ENT: Denies system reviewed and no additional complaints, except as documented and Reports as per HPI Cardiovascular: Cardiovascular: Reports as per HPI, Reports no additional cardiovascular complaints, Denies acrocyanosis, Denies cool extremities, Denies chest pain, Denies leg edema, Denies lightheadedness, Denies palpitations and Denies dyspnea Respiratory: Respiratory: Reports as per HPI, Denies no additional respiratory complaints and Denies dyspnea Gastrointestinal: Gastrointestinal: Reports as per HPI and Denies no additional gastrointestinal complaints Genitourinary: Genitourinary: Reports no additional male genitourinary complaints and Reports as per HPI Musculoskeletal: Musculoskeletal: Reports no additional musculoskeletal complaints and Reports as per HPI Integumentary/Breasts: Skin/Breast: Reports system reviewed and no additional complaints, except as docu Neurologic: Reports system reviewed and no additional complaints, except as documented and Reports as per HPI Psychiatric: Psychiatric: Reports no additional psychiatric complaints and Reports as per HPI Endocrine: Endocrine: Reports no additional endocrine complaints, Reports as per HPI and Denies palpitations Hematologic/Lymphatic: Hematologic/Lymphatic: Reports no additional hematologic/lymphatic complaints and Reports as per HPI Allergic/Immunologic: Allergic/Immunologic: Reports no additional allergic/immunologic complaints and Reports as per HPI [facility] Past Medical History Medical History (Updated 05/08/23 @ 12:02 by Jesus Vyas MD) BPV (benign positional vertigo) BPH (benign prostatic hyperplasia) HLD (hyperlipidemia) Family History Pertinent family history: No significant past medical history pertinent to this presentation. Surgical History Surgical History (Updated 05/08/23 @ 12:02 by Jesus Vyas MD) Mechanical heart valve present Social History Social History Household Members: None Housing: Apartment Do you presently have visiting nurse or other home services: No Patient Tobacco Use Status: Never used Tobacco Smoked in Last 30 Days: No Use of substances other than those prescribed or required for medical reasons: No Have you been hit, kicked, punched, or otherwise hurt by someone within the past year? If so, by whom?: No Do you feel safe in your current relationship?: No Current Relationship Is there a partner from a previous relationship who is making you feel unsafe now?: No Are you made to feel afraid or neglected: No Sikhism Healthcare Practices: Latter-Day Advance Directives: No Advance Directives Information Provided: No Do you have thoughts of harming others: None Do you have a plan to hurt others: No Plan Recently lost weight without trying: Unsure How much weight loss: Unsure Eating poorly because of decreased appetite: Yes Nutrition screen score: 5 Nutrition Risks: Poor intake 0-25% >4 days Poor oral hygiene: No Meds Allergies Allergy/AdvReac Type Severity Reaction Status Date / Time No Known Allergies Allergy Verified 05/07/23 16:30 Active Medications: Current Medications Acetaminophen (Acetaminophen Supp 650 Mg Supp.Rect) 650 mg CA Q6H PRN PRN Reason: Pain, Mild (Pain Scale 1-3) Al Hydroxide/Mg Hydroxide (Magnesium Hydrox/Alum Hydrox 30 Ml Oral.Susp) 30 ml PO Q4H PRN PRN Reason: Heartburn/Nausea Ascorbic Acid (Ascorbic Acid 500 Mg Tablet) 500 mg PO DAILY [facility] Last Admin: 05/08/23 09:40 Dose: 500 mg Atorvastatin Calcium (Atorvastatin Calcium 40 Mg Tablet) 40 mg PO BEDTIME [facility] Docusate Sodium (Docusate Sodium 100 Mg Capsule) 200 mg PO BEDTIME [facility] Enoxaparin Sodium (Enoxaparin Sodium 100 Mg/Ml Syringe) 90 mg 1 mg/kg (90 mg) SUBCUT Q12H [facility] Last Admin: 05/08/23 08:13 Dose: 90 mg Finasteride (Finasteride 5 Mg Tablet) 5 mg PO DAILY [facility] Dextrose/Sodium Chloride (D51/2ns) 1,000 mls @ 100 mls/hr IVCONT .Q10H [facility] Last Admin: 05/08/23 09:23 Dose: 100 mls/hr Meclizine HCl (Meclizine Hcl 25 Mg Tablet) 25 mg PO BID [facility] Last Admin: 05/08/23 09:40 Dose: 25 mg Melatonin (Melatonin 3 Mg Tablet) 6 mg PO BEDTIME PRN PRN Reason: Insomnia Morphine Sulfate (Morphine Sulfate 2 Mg/Ml Cartridge) 2 mg IVPUSH Q6H PRN; Protocol PRN Reason: Pain, Severe (Pain Scale 7-10) Multivitamins/Vitamin C (Multivitamin Tablet) 1 tab PO DAILY [facility] Last Admin: 05/08/23 09:40 Dose: 1 tab Nifedipine (Nifedipine Er 30 Mg Tab.Er.24) 30 mg PO DAILY [facility]; Protocol Omeprazole (Omeprazole 20 Mg Capsule.Dr) 20 mg PO DAILY@0630 [facility] Last Admin: 05/08/23 06:53 Dose: 20 mg Ondansetron HCl (Ondansetron Hcl 4 Mg/2 Ml Vial) 4 mg IVPUSH Q8H PRN PRN Reason: Nausea and Vomiting Sodium Chloride (0.9 % Sodium Chloride Flush 3 Ml Syringe) 3 ml IVFLUSH QSHIFT [facility] Last Admin: 05/08/23 08:25 Dose: Not Given Tamsulosin HCl (Tamsulosin Hcl 0.4 Mg Capsule) 0.4 mg PO BEDTIME [facility] Vitamin D (Cholecalciferol (Vitamin D3) 25 Mcg Tablet) 25 mcg PO DAILY [facility] Last Admin: 05/08/23 09:40 Dose: 25 mcg Warfarin Sodium (Warfarin Sodium 2 Mg Tablet) 2 mg PO MoWeFr@1800 [facility] Warfarin Sodium (Warfarin Sodium 4 Mg Tablet) 4 mg PO SuTuThSa@1800 [facility] Home Medications Medication Instructions Recorded Confirmed Last Taken Type ascorbic acid (vitamin C) 500 mg 500 mg PO DAILY 05/07/23 05/07/23 Unknown History tablet atorvastatin 40 mg tablet 40 mg PO BEDTIME 05/07/23 05/07/23 Unknown History cholecalciferol (vitamin D3) 25 25 mcg PO DAILY 05/07/23 05/07/23 Unknown History mcg (1,000 unit) tablet docusate sodium 100 mg capsule 200 mg PO BEDTIME 05/07/23 05/07/23 Unknown History esomeprazole magnesium 40 mg 40 mg PO QAM 05/07/23 05/07/23 Unknown History capsule,delayed release finasteride 5 mg tablet 5 mg PO DAILY 05/07/23 05/07/23 Unknown History meclizine 25 mg tablet 25 mg PO BID 05/07/23 05/07/23 Unknown History multivitamin 1 tab PO DAILY 05/07/23 05/07/23 Unknown History tamsulosin 0.4 mg capsule 0.4 mg PO BEDTIME 05/07/23 05/07/23 Unknown History warfarin 2 mg tablet 2 mg PO MOWEFR 05/07/23 05/07/23 Unknown History warfarin 4 mg tablet 4 mg PO SUTUTHSA 05/07/23 05/07/23 Unknown History Physical Exam Vital Signs: Vital Signs: Last Vital Signs Temp 97.9 F 05/08/23 09:49 Pulse 86 05/08/23 09:49 Resp 16 05/08/23 09:49 BP 147/79 H 05/08/23 09:49 Pulse Ox 95 05/08/23 09:49 O2 Del Method Room Air 05/08/23 09:49 BMI result Body Mass Index 27.8 Const: General: comfortable and no acute distress Orientation/consciousness: patient oriented x3 HEENT: Other: Unremarkable Head: Yes normal to inspection Neck: Neck: Yes normal visual inspection Chest: Chest palpation & inspection: normal inspection of the chest Resp: Auscultation: clear to auscultation bilaterally Cardio: Palpation: normal PMI Heart sounds: S1 normal heart sound present, S2 normal heart sound present, no gallops, no murmurs and no rubs GI: Palpation (GI): Soft to palpation Back/Spine/Pelvis: Other: unremarkable Skin: General skin exam: no rashes or lesions noted Neuro: General: patient oriented x3 Extrem: General: Yes normal to inspection Psych: Mental Status: mental status grossly normal Objective Labs and Meds 05/08/23 06:16 05/08/23 06:16 Lab results: Laboratory Results - last 24 hr 05/07/23 05/07/23 05/07/23 17:09 18:50 19:50 WBC 18.9 H RBC 5.28 Hgb 16.6 Hct 47.8 MCV 90.5 MCH 31.4 MCHC 34.7 RDW 13.1 Plt Count 130 L MPV 12.9 H Immature Gran % (Auto) 0.4 Neut % (Auto) 84.5 H Lymph % (Auto) 6.7 L [place] % (Auto) 8.1 Eos % (Auto) 0.2 Baso % (Auto) 0.1 Lymph # (Auto) 1.3 [place] # (Auto) 1.5 H Eos # (Auto) 0.0 Baso # (Auto) 0.0 Abs Immat Gran (auto) 0.08 H Absolute Neuts (auto) 16.0 H Absolute Nucleated RBC 0.000 Nucleated RBC % (auto) 0.0 Smear Tech's Comments VERIFIED PT 31.0 H INR 2.5 H Sodium 137 Potassium 4.3 Chloride 102 Carbon Dioxide 24 Anion Gap 15 BUN 13 Creatinine 1.62 H Estim Creat Clear Calc 44.1 Estimated GFR 42 Random Glucose 171 H Calcium 9.5 Magnesium 1.8 Total Bilirubin 2.3 H Direct Bilirubin 0.7 H AST 38 H ALT 36 Alkaline Phosphatase 98 Troponin I High Sens 6.0 Total Protein 7.8 Albumin 4.3 Lipase 12 Urine Color Dark Yellow Urine Appearance Clear Urine pH 6.0 Ur Specific [place] >= 1.030 H Urine Protein 30 (1+) H Urine Glucose (UA) Negative Urine Ketones Negative Urine Blood Negative Urine Nitrite Negative Ur Leukocyte Esterase Negative Urine RBC 3-5 H Urine WBC 0-5 Ur Squamous Epith Cells 0-2 Urine Bacteria None Seen Hyaline Casts 0-2 05/08/23 06:16 WBC 17.3 H RBC 4.91 Hgb 15.6 Hct 45.3 MCV 92.3 MCH 31.8 MCHC 34.4 RDW 13.2 Plt Count 107 L MPV 13.6 H Immature Gran % (Auto) 0.6 H Neut % (Auto) 84.1 H Lymph % (Auto) 6.8 L [place] % (Auto) 8.3 Eos % (Auto) 0.0 Baso % (Auto) 0.2 Lymph # (Auto) 1.2 [place] # (Auto) 1.4 H Eos # (Auto) 0.0 Baso # (Auto) 0.0 Abs Immat Gran (auto) 0.11 H Absolute Neuts (auto) 14.5 H Absolute Nucleated RBC 0.000 Nucleated RBC % (auto) 0.0 Smear Tech's Comments PT 32.5 H INR 2.7 H Sodium 134 L Potassium 3.9 Chloride 101 Carbon Dioxide 22 Anion Gap 15 BUN 12 Creatinine 1.46 H Estim Creat Clear Calc 49.0 Estimated GFR 47 Random Glucose 193 H Calcium 9.2 Magnesium Total Bilirubin 1.7 H Direct Bilirubin AST 37 ALT 37 Alkaline Phosphatase 92 Troponin I High Sens Total Protein 7.0 Albumin 3.8 Lipase Urine Color Urine Appearance Urine pH Ur Specific [place] Urine Protein Urine Glucose (UA) Urine Ketones Urine Blood Urine Nitrite Ur Leukocyte Esterase Urine RBC Urine WBC Ur Squamous Epith Cells Urine Bacteria Hyaline Casts ECG Interpretation: EKG with sinus rhythm, mild tachycardia at 104/Min with a left bundle type pattern. PVCs. Imaging Radiologist's impression: Impressions Abdomen/Pelvis CT 05/07/23 19:31 IMPRESSION: A large wedge-shaped perfusion defect is seen of the upper pole and interpolar aspect of the left kidney. There is adjacent perinephric stranding. No obstructive uropathy or calculus is noted. The imaging findings are most consistent with focal pyelonephritis or a focal renal infarction. Further differential considerations including drug-induced interstitial nephritis and renal lymphoma are considered unlikely. Recommend clinical correlation, including correlation with the patient's most recent urinalysis. Fleischner guidelines were followed. Chest X-Ray 05/08/23 00:25 IMPRESSION: No active cardiopulmonary disease. Assessment and Plan (1) Infarction of kidney: Status: Acute (2) Status post mechanical aortic valve replacement: Status: Acute (3) Anticoagulation management encounter: Status: Acute Plan Prior Cardiology records obtained as well as reviewed. Last seen by his college and career counselor in September of 2021. According to the, severe aortic stenosis/[place] mechanical aortic valve 1996. According to that note, INR has been stable. Echocardiogram from August 2021 from his prior college and career counselor LVEF 60-65% and normally functioning mechanical prosthetic aortic valve. With mechanical aortic valve, generally the target INR is around 2.5. Hence the current INR is well within that range and actually slightly higher. No need to switch to IV heparin. We can add aspirin to his current regimen. Will repeat echocardiogram to ensure the valve is function normally. Concurrent workup for infection extra. Will follow-up with you. Discussed with Dr. Peralta. Time Spent With Patient Time: Total time managing care of this patient today ____ minutes. Procedures Date of Service Date of Service: 05/08/23
[2023-05-08 10:24] LABS: Lactate Dehydrogenase 652 U/L (118-273)
[2023-05-08 10:32] LABS: INTERNATIONAL NORM RATIO 3.1 (0.9-1.1); Prothrombin Time 38.1 SEC (11.1-13.3)
[2023-05-08 10:35] LABS: Partial Thromboplastin Time 53.2 SEC (26.0-36.4)
--- NOTE | 2023-05-08 12:13 | MHC.CM.PN ---
IMM 05/08/23 delivered verbally via motor vehicle parts interpreter. Patient lives by himself. He uses a walker PRN back pain. He is independent with ADLs. [place] is Dr Ward [facility] [place] A new HCP has been documented. The document was scanned into computer and placed on chart. A referral for [facility] was made for assist with home making. DP home with a referral to [facility]. Patients dtr will provide transport home.
--- NOTE | 2023-05-08 14:05 | HO.PM.IMPN ---
Subjective Subjective Date of Service: 05/08/23 Interval History: Feels better less pain n no hematuria Review of Systems Review of Systems: Yes all other systems are reviewed and are negative Physical Exam Vital Signs: Vital Signs: Last Vital Signs Temp 97.9 F 05/08/23 09:49 Pulse 86 05/08/23 09:49 Resp 16 05/08/23 09:49 BP 147/79 H 05/08/23 09:49 Pulse Ox 95 05/08/23 09:49 O2 Del Method Room Air 05/08/23 09:49 BMI result Body Mass Index 27.8 Const: Other: Constitutional : Awake, interactive, not in distress Neck : Normal inspection, Supple Cardiovascular : RRR, no JVP, metalic click, no lower extremity edema Respiratory : good bilateral air entry, no crackles, wheezes or rhonchi Gastrointestinal: soft, lax, Normal bowel sounds, Non tender Skin : Warm, Dry Neurological : Alert & oriented x3, No focal deficit Objective Data Active Medications Acetaminophen (Acetaminophen Supp 650 Mg Supp.Rect) 650 mg ID Q6H PRN PRN Reason: Pain, Mild (Pain Scale 1-3) Al Hydroxide/Mg Hydroxide (Magnesium Hydrox/Alum Hydrox 30 Ml Oral.Susp) 30 ml PO Q4H PRN PRN Reason: Heartburn/Nausea Ascorbic Acid (Ascorbic Acid 500 Mg Tablet) 500 mg PO DAILY [facility] Last Admin: 05/08/23 09:40 Dose: 500 mg Documented By: ANIKA Aspirin (Aspirin Enteric Coated 81 Mg Tablet.) 81 mg PO DAILY [facility] Last Admin: 05/08/23 11:23 Dose: 81 mg Documented By: ANIKA Atorvastatin Calcium (Atorvastatin Calcium 40 Mg Tablet) 40 mg PO BEDTIME [facility] Docusate Sodium (Docusate Sodium 100 Mg Capsule) 200 mg PO BEDTIME [facility] Finasteride (Finasteride 5 Mg Tablet) 5 mg PO DAILY [facility] Dextrose/Sodium Chloride (D51/2ns) 1,000 mls @ 100 mls/hr IVCONT .Q10H [facility] Last Admin: 05/08/23 09:23 Dose: 100 mls/hr Documented By: MATTIE Meclizine HCl (Meclizine Hcl 25 Mg Tablet) 25 mg PO BID [facility] Last Admin: 05/08/23 09:40 Dose: 25 mg Documented By: ANIKA Melatonin (Melatonin 3 Mg Tablet) 6 mg PO BEDTIME PRN PRN Reason: Insomnia Morphine Sulfate (Morphine Sulfate 2 Mg/Ml Cartridge) 2 mg IVPUSH Q6H PRN; Protocol PRN Reason: Pain, Severe (Pain Scale 7-10) Multivitamins/Vitamin C (Multivitamin Tablet) 1 tab PO DAILY [facility] Last Admin: 05/08/23 09:40 Dose: 1 tab Documented By: ANIKA Nifedipine (Nifedipine Er 30 Mg Tab.Er.24) 30 mg PO DAILY [facility]; Protocol Last Admin: 05/08/23 10:57 Dose: 30 mg Documented By: ANIKA Omeprazole (Omeprazole 20 Mg Capsule.Dr) 20 mg PO DAILY@0630 [facility] Last Admin: 05/08/23 06:53 Dose: 20 mg Documented By: PAO Ondansetron HCl (Ondansetron Hcl 4 Mg/2 Ml Vial) 4 mg IVPUSH Q8H PRN PRN Reason: Nausea and Vomiting Sodium Chloride (0.9 % Sodium Chloride Flush 3 Ml Syringe) 3 ml IVFLUSH QSHIFT [facility] Last Admin: 05/08/23 08:25 Dose: Not Given Documented By: CARINA Non-Admin Reason: IV Running Tamsulosin HCl (Tamsulosin Hcl 0.4 Mg Capsule) 0.4 mg PO BEDTIME [facility] Vitamin D (Cholecalciferol (Vitamin D3) 25 Mcg Tablet) 25 mcg PO DAILY [facility] [place] Last Admin: 05/08/23 09:40 Dose: 25 mcg Documented By: ANIKA Warfarin Sodium (Warfarin Sodium 2 Mg Tablet) 2 mg PO MoWeFr@1800 [facility] Warfarin Sodium (Warfarin Sodium 4 Mg Tablet) 4 mg PO SuTuThSa@1800 [facility] Labs 05/08/23 06:16 05/08/23 06:16 Labs: Laboratory Results - last 24 hr 05/07/23 05/07/23 05/07/23 17:09 18:50 19:50 MCV 90.5 MCH 31.4 MCHC 34.7 RDW 13.1 Plt Count 130 L MPV 12.9 H Immature Gran % (Auto) 0.4 Neut % (Auto) 84.5 H Lymph % (Auto) 6.7 L [place] % (Auto) 8.1 Eos % (Auto) 0.2 Baso % (Auto) 0.1 Lymph # (Auto) 1.3 [place] # (Auto) 1.5 H Eos # (Auto) 0.0 Baso # (Auto) 0.0 Abs Immat Gran (auto) 0.08 H Absolute Neuts (auto) 16.0 H Absolute Nucleated RBC 0.000 Nucleated RBC % (auto) 0.0 Smear Tech's Comments VERIFIED PT 31.0 H INR 2.5 H APTT Anion Gap 15 Estim Creat Clear Calc 44.1 Estimated GFR 42 Random Glucose 171 H Calcium 9.5 Magnesium 1.8 Total Bilirubin 2.3 H Direct Bilirubin 0.7 H AST 38 H ALT 36 Alkaline Phosphatase 98 Lactate Dehydrogenase Total Protein 7.8 Albumin 4.3 Lipase 12 Urine Color Dark Yellow Urine Appearance Clear Urine pH 6.0 Ur Specific [place] >= 1.030 H Urine Protein 30 (1+) H Urine Glucose (UA) Negative Urine Ketones Negative Urine Blood Negative Urine Nitrite Negative Ur Leukocyte Esterase Negative Urine RBC 3-5 H Urine WBC 0-5 Ur Squamous Epith Cells 0-2 Urine Bacteria None Seen Hyaline Casts 0-2 05/08/23 05/08/23 06:16 10:18 MCV 92.3 MCH 31.8 MCHC 34.4 RDW 13.2 Plt Count 107 L MPV 13.6 H Immature Gran % (Auto) 0.6 H Neut % (Auto) 84.1 H Lymph % (Auto) 6.8 L [place] % (Auto) 8.3 Eos % (Auto) 0.0 Baso % (Auto) 0.2 Lymph # (Auto) 1.2 [place] # (Auto) 1.4 H Eos # (Auto) 0.0 Baso # (Auto) 0.0 Abs Immat Gran (auto) 0.11 H Absolute Neuts (auto) 14.5 H Absolute Nucleated RBC 0.000 Nucleated RBC % (auto) 0.0 Smear Tech's Comments PT 32.5 H 38.1 H INR 2.7 H 3.1 H APTT 53.2 H Anion Gap 15 Estim Creat Clear Calc 49.0 Estimated GFR 47 Random Glucose 193 H Calcium 9.2 Magnesium Total Bilirubin 1.7 H Direct Bilirubin AST 37 ALT 37 Alkaline Phosphatase 92 Lactate Dehydrogenase 652 H Total Protein 7.0 Albumin 3.8 Lipase Urine Color Urine Appearance Urine pH Ur Specific [place] Urine Protein Urine Glucose (UA) Urine Ketones Urine Blood Urine Nitrite Ur Leukocyte Esterase Urine RBC Urine WBC Ur Squamous Epith Cells Urine Bacteria Hyaline Casts Assessment and Plan (1) Anticoagulation management encounter: Status: Acute (2) Infarction of kidney: Status: Acute Plan 73/ male with with metalic heart valve here with abdominal pain and found to have left renal infarct Renal infarct in setting of Aortic mechanical valve INR of 3.1 Elevated LDH from tissue injury DC Lovenox Goal of INR 3 Continue coumadin Nephro consult , hypercoag work up. Cardiology consult, add Aspirin, pending ECHO Hypercoagulable workup as outpatient BPH continue finasteride, Flomax. Leukocytosis No evidence of infection, pending cultures hold on Abx as no fever Likely reactive from infarct MARCIO on CKD 3, Baseline Cr 1.4 on IVF Follow BMP DVT PPx coumadin will need overnight hospital stay for management of acute renal infarct Time Spent With Patient Time: Total time managing care of this patient today ____ minutes. Quality Stroke Does the patient have a stroke diagnosis?: No VTE Prior VTE?: No VTE Risk Level:: Medical - moderate - high VTE Device Contraindication: Treatment Not Indicated VTE Drug Contraindication: N/A - Med Ordered
[2023-05-08 15:30] VITALS: BP 157/95; PULSE 81; RESP 18; TEMP 36.9; O2SAT 94
[2023-05-08 20:00] VITALS: BP 133/77; PULSE 90; RESP 20; TEMP 36.7; O2SAT 93
[2023-05-09 03:22] VITALS: BP 124/82; PULSE 86; RESP 20; TEMP 36.8; O2SAT 94
[2023-05-09 08:11] VITALS: BP 130/65; PULSE 65; RESP 16; TEMP 36.3; O2SAT 96
[2023-05-09 09:41] LABS: Anion Gap 17 (12-20); Blood Urea Nitrogen 11 mg/dL (9-16); Calcium 8.9 mg/dL (8.4-10.2); Carbon Dioxide 20 mmol/L (22-29); Chloride 105 mmol/L (96-108); Creatinine Clr Calc Pharmacy 53.5; Estimated Glomerular Filt Rate 53; Glucose Random 174 mg/dL (60-115); Potassium 3.7 mmol/L (3.3-5.1); Sodium 138 mmol/L (135-145)
--- NOTE | 2023-05-09 10:44 | PM.CNGS ---
History of Present Illness Consult details Consult date: 05/09/23 Reason for consult: abdominal pain Narrative: Coronary artery disease and mechanical heart valve presented to the emergency department for 2-3 days diffuse abdominal pain. He reported some nausea but no vomiting. He was worked up and noted to have an elevated white count. And subsequently underwent a CT of the abdomen which was concerning for a large wedge-shaped perfusion defect in the upper pole of the left kidney. Upon discussion with the patient right now he is on a regular diet but has not been able to tolerate any p.o. intake including liquids. He now presents to us for vascular evaluation. Of note nonsmoker nondrinker Review of Systems Review of Systems: Yes all other systems are reviewed and are negative Constitutional: Constitutional: Reports no additional constitutional complaints ENT: Reports Normal hearing present Cardiovascular: Cardiovascular: Denies chest pain, Denies chest pain at rest, Denies chest pain with activity and Denies pedal edema Respiratory: Respiratory: Denies cough Gastrointestinal: Gastrointestinal: Denies abdominal pain Musculoskeletal: Musculoskeletal: Denies abnormal gait, Denies muscle cramps and Denies radiating pain into limb Integumentary/Breasts: Skin/Breast: Denies skin ulcer and Denies wounds Neurologic: Reports Normal hearing present and Denies abnormal gait Psychiatric: Psychiatric: Reports no additional psychiatric complaints [facility] Past Medical History Medical History (Updated 05/08/23 @ 12:02 by Jesus Vyas MD) BPV (benign positional vertigo) BPH (benign prostatic hyperplasia) HLD (hyperlipidemia) Surgical History Surgical History (Updated 05/08/23 @ 12:02 by Jesus Vyas MD) Mechanical heart valve present Social History Social History Household Members: None Housing: Apartment Do you presently have visiting nurse or other home services: No Patient Tobacco Use Status: Never used Tobacco Smoked in Last 30 Days: No Use of substances other than those prescribed or required for medical reasons: No Currently Displaying Signs/Symptoms of Drug Intoxication Withdrawal: No Have you been hit, kicked, punched, or otherwise hurt by someone within the past year? If so, by whom?: No Do you feel safe in your current relationship?: No Current Relationship Is there a partner from a previous relationship who is making you feel unsafe now?: No Are you made to feel afraid or neglected: No Sabianist Healthcare Practices: Orthodox Advance Directives: No Advance Directives Information Provided: No Do you have thoughts of harming others: None Do you have a plan to hurt others: No Plan Recently lost weight without trying: Unsure How much weight loss: Unsure Eating poorly because of decreased appetite: Yes Nutrition screen score: 5 Nutrition Risks: Poor intake 0-25% >4 days Poor oral hygiene: No service: No Meds Allergies Allergy/AdvReac Type Severity Reaction Status Date / Time No Known Allergies Allergy Verified 05/07/23 16:30 Active Medications: Current Medications Acetaminophen (Acetaminophen Supp 650 Mg Supp.Rect) 650 mg [place] Q6H PRN PRN Reason: Pain, Mild (Pain Scale 1-3) Al Hydroxide/Mg Hydroxide (Magnesium Hydrox/Alum Hydrox 30 Ml Oral.Susp) 30 ml PO Q4H PRN PRN Reason: Heartburn/Nausea Ascorbic Acid (Ascorbic Acid 500 Mg Tablet) 500 mg PO DAILY [facility] Last Admin: 05/09/23 09:46 Dose: 500 mg Aspirin (Aspirin Enteric Coated 81 Mg Tablet.Dr) 81 mg PO DAILY [facility] Last Admin: 05/09/23 09:46 Dose: 81 mg Atorvastatin Calcium (Atorvastatin Calcium 40 Mg Tablet) 40 mg PO BEDTIME [facility] Last Admin: 05/08/23 20:12 Dose: 40 mg Docusate Sodium (Docusate Sodium 100 Mg Capsule) 200 mg PO BEDTIME [facility] Last Admin: 05/08/23 20:12 Dose: 200 mg Finasteride (Finasteride 5 Mg Tablet) 5 mg PO DAILY [facility] Last Admin: 05/09/23 09:47 Dose: Not Given Dextrose/Sodium Chloride (D51/2ns) 1,000 mls @ 100 mls/hr IVCONT .Q10H [facility] Last Admin: 05/09/23 03:14 Dose: 100 mls/hr Lactulose (Lactulose 20 Gm/30 Ml Solution) 20 gm PO BID [facility] Last Admin: 05/09/23 09:47 Dose: Not Given Meclizine HCl (Meclizine Hcl 25 Mg Tablet) 25 mg PO BID [facility] Last Admin: 05/09/23 09:46 Dose: 25 mg Melatonin (Melatonin 3 Mg Tablet) 6 mg PO BEDTIME PRN PRN Reason: Insomnia Last Admin: 05/08/23 20:12 Dose: 6 mg Morphine Sulfate (Morphine Sulfate 2 Mg/Ml Cartridge) 2 mg IVPUSH Q6H PRN; Protocol PRN Reason: Pain, Severe (Pain Scale 7-10) Last Admin: 05/08/23 16:03 Dose: 2 mg Multivitamins/Vitamin C (Multivitamin Tablet) 1 tab PO DAILY [facility] Last Admin: 05/09/23 09:46 Dose: 1 tab Nifedipine (Nifedipine Er 30 Mg Tab.Er.24) 30 mg PO DAILY [facility]; Protocol Last Admin: 05/09/23 09:46 Dose: 30 mg Omeprazole (Omeprazole 20 Mg Capsule.Dr) 20 mg PO DAILY@0630 [facility] Last Admin: 05/09/23 05:33 Dose: 20 mg Ondansetron HCl (Ondansetron Hcl 4 Mg/2 Ml Vial) 4 mg IVPUSH Q8H PRN PRN Reason: Nausea and Vomiting Last Admin: 05/09/23 09:45 Dose: 4 mg Simethicone (Simethicone 80 Mg Tab.Chew) 80 mg PO QIDWMHS [facility] Last Admin: 05/09/23 09:46 Dose: 80 mg Sodium Chloride (0.9 % Sodium Chloride Flush 3 Ml Syringe) 3 ml IVFLUSH QSHIFT [facility] Last Admin: 05/09/23 07:01 Dose: Not Given Tamsulosin HCl (Tamsulosin Hcl 0.4 Mg Capsule) 0.4 mg PO BEDTIME [facility] Last Admin: 05/08/23 20:12 Dose: 0.4 mg Vitamin D (Cholecalciferol (Vitamin D3) 25 Mcg Tablet) 25 mcg PO DAILY [facility] Last Admin: 05/09/23 09:46 Dose: 25 mcg Warfarin Sodium (Warfarin Sodium 2 Mg Tablet) 2 mg PO [id number]@1800 [facility] Warfarin Sodium (Warfarin Sodium 4 Mg Tablet) 4 mg PO SuTuThSa@1800 [facility] Last Admin: 05/08/23 17:30 Dose: 4 mg Home Medications Medication Instructions Recorded Confirmed Last Taken Type ascorbic acid (vitamin C) 500 mg 500 mg PO DAILY 05/07/23 05/07/23 Unknown History tablet atorvastatin 40 mg tablet 40 mg PO BEDTIME 05/07/23 05/07/23 Unknown History cholecalciferol (vitamin D3) 25 25 mcg PO DAILY 05/07/23 05/07/23 Unknown History mcg (1,000 unit) tablet docusate sodium 100 mg capsule 200 mg PO BEDTIME 05/07/23 05/07/23 Unknown History esomeprazole magnesium 40 mg 40 mg PO QAM 05/07/23 05/07/23 Unknown History capsule,delayed release finasteride 5 mg tablet 5 mg PO DAILY 05/07/23 05/07/23 Unknown History meclizine 25 mg tablet 25 mg PO BID 05/07/23 05/07/23 Unknown History multivitamin 1 tab PO DAILY 05/07/23 05/07/23 Unknown History tamsulosin 0.4 mg capsule 0.4 mg PO BEDTIME 05/07/23 05/07/23 Unknown History warfarin 2 mg tablet 2 mg PO MOWEFR 05/07/23 05/07/23 Unknown History warfarin 4 mg tablet 4 mg PO SUTUTHSA 05/07/23 05/07/23 Unknown History Physical Exam Vital Signs: Vital Signs: Last Vital Signs Temp 97.3 F 05/09/23 08:11 Pulse 65 05/09/23 08:11 Resp 16 05/09/23 08:11 BP 130/65 05/09/23 08:11 Pulse Ox 96 05/09/23 08:11 O2 Del Method Room Air 05/09/23 08:11 BMI result Body Mass Index 27.8 Const: General: cooperative, healthy appearing and comfortable Orientation/consciousness: oriented to person, oriented to place and oriented to time HEENT: Head: Yes normal to inspection Neck: Neck: Yes normal visual inspection Carotids: no bruits Chest: Chest palpation & inspection: normal inspection of the chest Resp: Effort & Inspection: normal respiratory effort and able to speak in complete sentences Auscultation: clear to auscultation bilaterally, no crackles, no rales, no rhonchi and no wheezes Cardio: Rate: regular rate Rhythm: regular rhythm Heart sounds: S1 normal heart sound present and S2 normal heart sound present Bruits: no carotid bruits Peripheral pulses: Peripheral pulses 2+ throughout GI: Other: Abdomen is distended diffusely tender but no rebound or guarding Inspection: Yes normal to inspection Skin: Wounds: no wounds Hair: normal Neuro: General: oriented to person, oriented to place and oriented to time Cranial nerves: Yes CN's II-XII intact bilaterally and Yes Normal hearing present Cognition (Neuro): normal cognition Motor exam (neuro): 5/5 motor strength present throughout Extrem: Other: venous exam: No significant superficial varicosities or spider telangiectasias, minimal edema General: No clubbing, No cyanosis and No edema Psych: Appearance: grossly normal Mental Status: mental status grossly normal Speech and movement: Normal speech and movement present Results Labs 05/09/23 06:28 05/09/23 06:28 Labs: Abnormal lab results 05/09/23 Range/Units 06:28 WBC 12.5 H (4.8-10.8) X10*3/uL Plt Count 107 L (160-400) X10*3/uL MPV 14.2 H (9.4-12.4) fL PT 41.5 H (11.1-13.3) SEC INR 3.4 H (0.9-1.1) Carbon Dioxide 20 L (22-29) mmol/L Random Glucose 174 H (60-115) mg/dL Short CBC 05/09/23 Range/Units 06:28 WBC 12.5 H (4.8-10.8) X10*3/uL Hgb 14.7 (14.0-18.0) g/dl Hct 42.8 (42.0-52.0) % Plt Count 107 L (160-400) X10*3/uL BMP 05/09/23 06:28 Sodium 138 Potassium 3.7 Chloride 105 Carbon Dioxide 20 L BUN 11 Creatinine 1.33 Calcium 8.9 Urine 05/07/23 Range/Units 19:50 Urine Color Dark Yellow Urine Appearance Clear Urine pH 6.0 (5.0-9.0) Ur Specific [place] >= 1.030 H (1.005-1.025) Urine Protein 30 (1+) H (Neg-Trace) mg/dL Urine Glucose (UA) Negative (Negative) mg/dL All other labs normal. Imaging Additional studies: CT scan demonstrates a large wedge-shaped perfusion defect in the upper pole and interpolar aspect of the left kidney. Assessment and Plan (1) Infarction of kidney: Status: Acute Plan Unclear etiology of abdominal pain. I do appreciate the findings on CT scan a perfusion defect. I was able to visualize the renal vessels on CT scan which demonstrated no significant stenosis disease. The fortunate part is the patient is already on anticoagulation due to his mechanical heart valve. I would not recommend any additional treatment. Would continue medical management. No additional intervention required at the current time. Would follow up on a p.r.n. basis. Thank you for allowing us to assist in his care. If there are questions or concerns please do not hesitate to contact us Time Spent With Patient Time: Total time managing care of this patient today ____ minutes. Procedures Date of Service Date of Service: 05/09/23
--- NOTE | 2023-05-09 11:28 | PM.PNCARD ---
Subjective Subjective Date of Service: 05/09/23 Interval history: He states that he feels the abdominal pain about 5/10 intensity. There has not been much of improvement in that regard. Review of Systems Review of Systems Yes all other systems are reviewed and are negative Constitutional: Reports as per HPI and Reports no additional constitutional complaints Eyes: Reports as per HPI and Denies no additional eye complaints Denies system reviewed and no additional complaints, except as documented and Reports as per HPI Cardiovascular: Reports as per HPI, Reports no additional cardiovascular complaints, Denies acrocyanosis, Denies cool extremities, Denies chest pain, Denies leg edema, Denies lightheadedness, Denies palpitations and Denies dyspnea Respiratory: Reports as per HPI, Denies no additional respiratory complaints and Denies dyspnea Gastrointestinal: Reports as per HPI and Denies no additional gastrointestinal complaints Genitourinary: Reports no additional male genitourinary complaints and Reports as per HPI Musculoskeletal: Reports no additional musculoskeletal complaints and Reports as per HPI Skin/Breast: Reports system reviewed and no additional complaints, except as docu Reports system reviewed and no additional complaints, except as documented and Reports as per HPI Psychiatric: Reports no additional psychiatric complaints and Reports as per HPI Endocrine: Reports no additional endocrine complaints, Reports as per HPI and Denies palpitations Hematologic/Lymphatic: Reports no additional hematologic/lymphatic complaints and Reports as per HPI Allergic/Immunologic: Reports no additional allergic/immunologic complaints and Reports as per HPI Physical Exam Vital Signs: Last Vital Signs Temp 97.3 F 05/09/23 08:11 Pulse 65 05/09/23 08:11 Resp 16 05/09/23 08:11 BP 130/65 05/09/23 08:11 Pulse Ox 96 05/09/23 08:11 O2 Del Method Room Air 05/09/23 08:11 BMI result Body Mass Index 27.8 Const General: comfortable and no acute distress Orientation/consciousness: patient oriented x3 HEENT Other: Unremarkable Head: Yes normal to inspection Neck Neck: Yes normal visual inspection Chest Chest palpation & inspection: normal inspection of the chest Resp Auscultation: clear to auscultation bilaterally Cardio Other: Normal prosthetic heart valve sounds. Palpation: normal PMI GI Palpation (GI): Soft to palpation Back/Spine/Pelvis Other: unremarkable Skin General skin exam: no rashes or lesions noted Neuro General: patient oriented x3 Extrem General: Yes normal to inspection Psych Mental Status: mental status grossly normal Objective Labs and Meds 05/09/23 06:28 05/09/23 06:28 Lab results: Laboratory Results - last 24 hr 05/09/23 06:28 WBC 12.5 H RBC 4.62 Hgb 14.7 Hct 42.8 MCV 92.6 MCH 31.8 MCHC 34.3 RDW 13.0 Plt Count 107 L MPV 14.2 H Absolute Nucleated RBC 0.000 Nucleated RBC % (auto) 0.0 PT 41.5 H INR 3.4 H Sodium 138 Potassium 3.7 Chloride 105 Carbon Dioxide 20 L Anion Gap 17 BUN 11 Creatinine 1.33 Estim Creat Clear Calc 53.5 Estimated GFR 53 Random Glucose 174 H Calcium 8.9 Progress Note: A&P Assessment and plan (1) Infarction of kidney: Status: Acute (2) Status post mechanical aortic valve replacement: Status: Acute (3) Anticoagulation management encounter: Status: Acute Plan Echocardiogram reviewed. The gradients across the mechanical aortic valve are well within normal limits and other parameters are also within limits. There is no evidence of any valvular dysfunction and there is no evidence of any overt thrombus anywhere. For mechanical aortic valve they recommended INR is around 2.5 or 2-3 and his INR is very much within range or in fact on the higher side. Hence no need to modify this. However, may add aspirin to his warfarin. Due to his complaint of continued abdominal pain, will likely need to re-scanned the abdomen. No result yet on the blood cultures. He may need workup for hypercoagulability type picture or any underlying malignancy as well. Consider Hematology input. Discussed with Dr. Peralta. Time Spent With Patient Time: Total time managing care of this patient today 45 minutes. This includes time spent in review of chart, laboratory data, imaging studies, review of telemetry, counseling patient, discussion with hospitalist, RN, documentation, coordination of care. Progress Note: Quality Stroke Does the patient have a stroke diagnosis?: No Procedures Date of Service Date of Service: 05/09/23
--- NOTE | 2023-05-09 12:54 | MHC.CM.PN ---
Per MD rounds no discharge today. Discharge is anticipated tomorrow. DP home with new [facility]. Patient will arrange for transport home.
--- NOTE | 2023-05-09 15:29 | PM.PNNEP ---
Subjective Subjective Date of Service: 05/09/23 Interval history: Feels better less pain n no hematuria Physical Exam Vital Signs: Vital Signs: Last Vital Signs Temp 97.3 F 05/09/23 08:11 Pulse 65 05/09/23 08:11 Resp 16 05/09/23 08:11 BP 130/65 05/09/23 08:11 Pulse Ox 96 05/09/23 08:11 O2 Del Method Room Air 05/09/23 08:11 BMI result Body Mass Index 27.8 Const: Other: Constitutional : Awake, interactive, not in distress Neck : Normal inspection, Supple Cardiovascular : RRR, no JVP, metalic click, no lower extremity edema Respiratory : good bilateral air entry, no crackles, wheezes or rhonchi Gastrointestinal: soft, lax, Normal bowel sounds, Non tender Skin : Warm, Dry Neurological : Alert & oriented x3, No focal deficit Objective Data Labs 05/09/23 06:28 05/09/23 06:28 Labs: Laboratory Results - last 24 hr 05/09/23 06:28 WBC 12.5 H RBC 4.62 Hgb 14.7 Hct 42.8 MCV 92.6 MCH 31.8 MCHC 34.3 RDW 13.0 Plt Count 107 L MPV 14.2 H Absolute Nucleated RBC 0.000 Nucleated RBC % (auto) 0.0 PT 41.5 H INR 3.4 H Sodium 138 Potassium 3.7 Chloride 105 Carbon Dioxide 20 L Anion Gap 17 BUN 11 Creatinine 1.33 Estim Creat Clear Calc 53.5 Estimated GFR 53 Random Glucose 174 H Calcium 8.9 Microbiology Microbiology Results: Microbiology 05/08/23 13:10 Blood - Venous Blood Culture - Preliminary No growth after 24 hours. 05/08/23 17:37 Urine clean catch - Urine da silva top Urine Culture - Preliminary Culture too young to evaluate. 05/08/23 13:04 Blood - Venous Blood Culture - Final Procedures Date of Service Date of Service: 05/09/23 Assessment & Plan Assessment and plan (1) Infarction of kidney: Status: Acute (2) Status post mechanical aortic valve replacement: Status: Acute (3) Anticoagulation management encounter: Status: Acute Plan THIS IS A 73-YEAR-OLD GENTLEMAN WITH MECHANICAL HEART VALVE, MAINTAINED ON COUMADIN, PRESENTS TO THE HOSPITAL WITH ABDOMINAL PAIN, SUDDEN ONSET, AND A CAT SCAN WHICH SHOWS WEDGE-SHAPED PERFUSION DEFECT IN THE LEFT KIDNEY CONSISTENT WITH A RENAL INFARCT. Problem #1: Renal infarct. - This is most likely an embolic event despite him being on the anticoagulation. Alternatively, it could be a defect in the renal vasculature with a dissection causing renal infarct. It is unlikely to be pyelonephritis given he has absence of urinary symptoms and there is no evidence of infection based on the UA and lack of fever as well. - All in all with anticoagulation renal perfusion appears to be restored as evidenced by improving Cr. - f/u Cardiac echo Problem#2: Acute kidney injury. Creatinine did bump, but now it has already improved with IV fluids. He may incur some worsening of his chronic kidney disease as a consequence of the infarct. Time Spent With Patient Time: Total time managing care of this patient today ____ minutes. Progress Note: Quality Stroke Does the patient have a stroke diagnosis?: No
--- NOTE | 2023-05-09 15:52 | HO.PM.IMPN ---
Subjective Subjective Date of Service: 05/09/23 Interval History: Feels better still reporting abdominal pain and inability to tolerate food no fever or chills no hematuria Review of Systems Review of Systems: Yes all other systems are reviewed and are negative Physical Exam Vital Signs: Vital Signs: Last Vital Signs Temp 97.3 F 05/09/23 08:11 Pulse 65 05/09/23 08:11 Resp 16 05/09/23 08:11 BP 130/65 05/09/23 08:11 Pulse Ox 96 05/09/23 08:11 O2 Del Method Room Air 05/09/23 08:11 BMI result Body Mass Index 27.8 Const: Other: Constitutional : Awake, interactive, not in distress Neck : Normal inspection, Supple Cardiovascular : RRR, no JVP, metalic click, no lower extremity edema Respiratory : good bilateral air entry, no crackles, wheezes or rhonchi Gastrointestinal: soft, lax, Normal bowel sounds, Non tender Skin : Warm, Dry Neurological : Alert & oriented x3, No focal deficit Objective Data Active Medications Acetaminophen (Acetaminophen Supp 650 Mg Supp.Rect) 650 mg [place] Q6H PRN PRN Reason: Pain, Mild (Pain Scale 1-3) Al Hydroxide/Mg Hydroxide (Magnesium Hydrox/Alum Hydrox 30 Ml Oral.Susp) 30 ml PO Q4H PRN PRN Reason: Heartburn/Nausea Ascorbic Acid (Ascorbic Acid 500 Mg Tablet) 500 mg PO DAILY [facility] Last Admin: 05/09/23 09:46 Dose: 500 mg Documented By: ANIKA Aspirin (Aspirin Enteric Coated 81 Mg Tablet.) 81 mg PO DAILY [facility] Last Admin: 05/09/23 09:46 Dose: 81 mg Documented By: ANIKA Atorvastatin Calcium (Atorvastatin Calcium 40 Mg Tablet) 40 mg PO BEDTIME [facility] Last Admin: 05/08/23 20:12 Dose: 40 mg Documented By: GAGAN Belladonna Alkaloids/Phenobarbital (Phenobarb/Hyoscy/Atropine/Scop 10 Ml Elixir) 5 ml PO TID PRN PRN Reason: Abdominal pain Docusate Sodium (Docusate Sodium 100 Mg Capsule) 200 mg PO BEDTIME [facility] Last Admin: 05/08/23 20:12 Dose: 200 mg Documented By: GAGAN Finasteride (Finasteride 5 Mg Tablet) 5 mg PO DAILY [facility] Last Admin: 05/09/23 09:47 Dose: Not Given Documented By: ANIKA Non-Admin Reason: pt takes at night Dextrose/Sodium Chloride (D51/2ns) 1,000 mls @ 100 mls/hr IVCONT .Q10H [facility] Last Admin: 05/09/23 14:12 Dose: 100 mls/hr Documented By: ANIKA Ceftriaxone Sodium 1 gm/ (Sodium Chloride) 50 mls @ 100 mls/hr IV Q24H [facility] Meclizine HCl (Meclizine Hcl 25 Mg Tablet) 25 mg PO BID [facility] Last Admin: 05/09/23 09:46 Dose: 25 mg Documented By: ANIKA Melatonin (Melatonin 3 Mg Tablet) 6 mg PO BEDTIME PRN PRN Reason: Insomnia Last Admin: 05/08/23 20:12 Dose: 6 mg Documented By: GAGAN Morphine Sulfate (Morphine Sulfate 2 Mg/Ml Cartridge) 2 mg IVPUSH Q6H PRN; Protocol PRN Reason: Pain, Severe (Pain Scale 7-10) Last Admin: 05/08/23 16:03 Dose: 2 mg Documented By: ANIKA Multivitamins/Vitamin C (Multivitamin Tablet) 1 tab PO DAILY [facility] Last Admin: 05/09/23 09:46 Dose: 1 tab Documented By: ANIAK Nifedipine (Nifedipine Er 30 Mg Tab.Er.24) 30 mg PO DAILY [facility]; Protocol Last Admin: 05/09/23 09:46 Dose: 30 mg Documented By: ANIKA Omeprazole (Omeprazole 20 Mg Capsule.Dr) 20 mg PO DAILY@0630 [facility] Last Admin: 05/09/23 05:33 Dose: 20 mg Documented By: GAGAN Ondansetron HCl (Ondansetron Hcl 4 Mg/2 Ml Vial) 4 mg IVPUSH Q8H PRN PRN Reason: Nausea and Vomiting Last Admin: 05/09/23 09:45 Dose: 4 mg Documented By: ANIKA Simethicone (Simethicone 80 Mg Tab.Chew) 80 mg PO QIDWMHS [facility] Last Admin: 05/09/23 11:16 Dose: 80 mg Documented By: ANIKA Sodium Chloride (0.9 % Sodium Chloride Flush 3 Ml Syringe) 3 ml IVFLUSH QSHIFT [facility] Last Admin: 05/09/23 14:45 Dose: Not Given Documented By: ANIKA Non-Admin Reason: IV Running Tamsulosin HCl (Tamsulosin Hcl 0.4 Mg Capsule) 0.4 mg PO BEDTIME [facility] Last Admin: 05/08/23 20:12 Dose: 0.4 mg Documented By: GAGAN Vitamin D (Cholecalciferol (Vitamin D3) 25 Mcg Tablet) 25 mcg PO DAILY [facility] Last Admin: 05/09/23 09:46 Dose: 25 mcg Documented By: ANIKA Warfarin Sodium (Warfarin Sodium 2 Mg Tablet) 2 mg PO SuTuThSa@1800 [facility] Warfarin Sodium (Warfarin Sodium 1 Mg Tablet) 1 mg PO MoWeFr@1800 [facility] Labs 05/09/23 06:28 05/09/23 06:28 Labs: Laboratory Results - last 24 hr 05/09/23 06:28 MCV 92.6 MCH 31.8 MCHC 34.3 RDW 13.0 Plt Count 107 L MPV 14.2 H Absolute Nucleated RBC 0.000 Nucleated RBC % (auto) 0.0 PT 41.5 H INR 3.4 H Anion Gap 17 Estim Creat Clear Calc 53.5 Estimated GFR 53 Random Glucose 174 H Calcium 8.9 Microbiology Microbiology Results: Microbiology 05/08/23 13:10 Blood Culture - Preliminary Blood - Venous No growth after 24 hours. 05/08/23 17:37 Urine Culture - Preliminary Urine clean catch - Urine da silva top Culture too young to evaluate. 05/08/23 13:04 Blood Culture - Final Blood - Venous Assessment and Plan (1) Anticoagulation management encounter: Status: Acute (2) Status post mechanical aortic valve replacement: Status: Acute (3) Infarction of kidney: Status: Acute (4) Abdominal pain: Status: Acute (5) Nausea: Status: Acute Plan 73/ male with with metalic heart valve here with abdominal pain and found to have left renal infarct Renal infarct in setting of Aortic mechanical valve INR of 3.4 Elevated LDH from tissue injury, follow Goal of INR 2.5-3 Continue coumadin lower dose Nephro consult , hypercoag work up. Hematology to eval Cardiology consult, add Aspirin, ECHO showing clean Valve w no thrombus. Hypercoagulable workup w Hematology BPH continue finasteride, Flomax. Leukocytosis No evidence of infection, pending cultures hold on Abx as no fever Likely reactive from infarct MARCIO on CKD 3, resolved, DC IVF Follow BMP Abdominal pain Repeated CT scan negative for any new abnormalities seems more of IBS pain cover w empirical Ceftriaxone Symptomatic meds DVT PPx coumadin will need overnight hospital stay for management of acute renal infarct and abdominal pain Time Spent With Patient Time: Total time managing care of this patient today ____ minutes. Quality Stroke Does the patient have a stroke diagnosis?: No VTE Prior VTE?: No VTE Risk Level:: Medical - moderate - high VTE Device Contraindication: Treatment Not Indicated VTE Drug Contraindication: N/A - Med Ordered
[2023-05-09 15:53] VITALS: BP 130/79; PULSE 88; TEMP 36.2; O2SAT 93
[2023-05-09 19:55] VITALS: BP 132/67; PULSE 90; RESP 18; TEMP 36.4; O2SAT 93
[2023-05-10 04:00] VITALS: BP 125/72; PULSE 75; RESP 16; TEMP 36.4; O2SAT 95
--- NOTE | 2023-05-10 05:17 | PC.NURSE ---
Dr. Holloway messaged to notify of hallucinations as there is a discharge summary in chart. Patient is without nausea, headache, sweats, tremor. Reported to MD hallucinations and increased activity. Can be agitated but redirectable right now.
[2023-05-10 05:48] LABS: INTERNATIONAL NORM RATIO 3.5 (0.9-1.1); Prothrombin Time 42.8 SEC (11.1-13.3)
[2023-05-10 06:02] LABS: Anion Gap 16 (12-20)
[2023-05-10 06:03] LABS: Blood Urea Nitrogen 11 mg/dL (9-16); Calcium 8.9 mg/dL (8.4-10.2); Carbon Dioxide 23 mmol/L (22-29); Chloride 104 mmol/L (96-108); Creatinine Clr Calc Pharmacy 46.5; Estimated Glomerular Filt Rate 45; Glucose Random 148 mg/dL (60-115); Lactate Dehydrogenase 496 U/L (118-273); Potassium 3.6 mmol/L (3.3-5.1); Sodium 139 mmol/L (135-145)
[2023-05-10 07:05] VITALS: BP 138/74; PULSE 69; RESP 18; TEMP 36.8; O2SAT 94
--- NOTE | 2023-05-10 10:55 | PM.PNNEP ---
Subjective Subjective Date of Service: 05/10/23 Interval history: no issues Physical Exam Vital Signs: Vital Signs: Last Vital Signs Temp 98.3 F 05/10/23 07:05 Pulse 69 05/10/23 07:05 Resp 18 05/10/23 07:05 BP 138/74 05/10/23 07:05 Pulse Ox 94 05/10/23 07:05 O2 Del Method Room Air 05/10/23 07:05 BMI result Body Mass Index 27.8 Const: Other: Constitutional : Awake, interactive, not in distress Neck : Normal inspection, Supple Cardiovascular : RRR, no JVP, metalic click, no lower extremity edema Respiratory : good bilateral air entry, no crackles, wheezes or rhonchi Gastrointestinal: soft, lax, Normal bowel sounds, Non tender Skin : Warm, Dry Neurological : Alert & oriented x3, No focal deficit Objective Data Labs 05/09/23 06:28 05/10/23 05:12 Labs: Laboratory Results - last 24 hr 05/10/23 05/10/23 05:12 05:12 Hold Purple Top SEE NOTE PT 42.8 H INR 3.5 H Sodium 139 Potassium 3.6 Chloride 104 Carbon Dioxide 23 Anion Gap 16 BUN 11 Creatinine 1.53 H Estim Creat Clear Calc 46.5 Estimated GFR 45 Random Glucose 148 H Calcium 8.9 Lactate Dehydrogenase 496 H Cancelled Microbiology Microbiology Results: Microbiology 05/08/23 13:10 Blood - Venous Blood Culture - Preliminary No growth after 24 hours. 05/08/23 17:37 Urine clean catch - Urine da silva top Urine Culture - Preliminary Culture too young to evaluate. 05/08/23 13:04 Blood - Venous Blood Culture - Final Procedures Date of Service Date of Service: 05/10/23 Assessment & Plan Assessment and plan (1) Infarction of kidney: Status: Acute (2) Status post mechanical aortic valve replacement: Status: Acute (3) Anticoagulation management encounter: Status: Acute Plan THIS IS A 73-YEAR-OLD GENTLEMAN WITH MECHANICAL HEART VALVE, MAINTAINED ON COUMADIN, PRESENTS TO THE HOSPITAL WITH ABDOMINAL PAIN, SUDDEN ONSET, AND A CAT SCAN WHICH SHOWS WEDGE-SHAPED PERFUSION DEFECT IN THE LEFT KIDNEY CONSISTENT WITH A RENAL INFARCT. Problem #1: Renal infarct. - This is most likely an embolic event despite him being on the anticoagulation. Alternatively, it could be a defect in the renal vasculature with a dissection causing renal infarct. It is unlikely to be pyelonephritis given he has absence of urinary symptoms and there is no evidence of infection based on the UA and lack of fever as well. - All in all with anticoagulation renal perfusion appears to be restored as evidenced by improving Cr. - start IVF support today to improve renal perfusion. Problem#2: Acute kidney injury. Creatinine did bump, but now it has already improved with IV fluids. - Restart IVF support. Time Spent With Patient Time: Total time managing care of this patient today ____ minutes. Progress Note: Quality Stroke Does the patient have a stroke diagnosis?: No
--- NOTE | 2023-05-10 12:33 | HO.PM.IMPN ---
Subjective Subjective Date of Service: 05/10/23 Interval History: Feels better reporting abdominal pain and inability to tolerate food Noticed PVCs on Tele no fever or chills no hematuria Review of Systems Review of Systems: Yes all other systems are reviewed and are negative Physical Exam Vital Signs: Vital Signs: Last Vital Signs Temp 98.3 F 05/10/23 07:05 Pulse 69 05/10/23 07:05 Resp 18 05/10/23 07:05 BP 138/74 05/10/23 07:05 Pulse Ox 94 05/10/23 07:05 O2 Del Method Room Air 05/10/23 07:05 BMI result Body Mass Index 27.8 Const: Other: Constitutional : Awake, interactive, not in distress Neck : Normal inspection, Supple Cardiovascular : RRR, no JVP, metalic click, no lower extremity edema Respiratory : good bilateral air entry, no crackles, wheezes or rhonchi Gastrointestinal: soft, lax, Normal bowel sounds, Non tender Skin : Warm, Dry Neurological : Alert & oriented x3, No focal deficit Objective Data Active Medications Acetaminophen (Acetaminophen Supp 650 Mg Supp.Rect) 650 mg [place] Q6H PRN PRN Reason: Pain, Mild (Pain Scale 1-3) Al Hydroxide/Mg Hydroxide (Magnesium Hydrox/Alum Hydrox 30 Ml Oral.Susp) 30 ml PO Q4H PRN PRN Reason: Heartburn/Nausea Last Admin: 05/10/23 02:33 Dose: 30 ml Documented By: KIM Ascorbic Acid (Ascorbic Acid 500 Mg Tablet) 500 mg PO DAILY [facility] Last Admin: 05/10/23 08:18 Dose: 500 mg Documented By: COTEMA Aspirin (Aspirin Enteric Coated 81 Mg Tablet.) 81 mg PO DAILY [facility] Last Admin: 05/10/23 08:17 Dose: 81 mg Documented By: BOBEMA Atorvastatin Calcium (Atorvastatin Calcium 40 Mg Tablet) 40 mg PO BEDTIME [facility] Last Admin: 05/09/23 20:41 Dose: 40 mg Documented By: KIM Belladonna Alkaloids/Phenobarbital (Phenobarb/Hyoscy/Atropine/Scop 10 Ml Elixir) 5 ml PO TID [facility] Last Admin: 05/10/23 10:43 Dose: 5 ml Documented By: BOBEMA Docusate Sodium (Docusate Sodium 100 Mg Capsule) 200 mg PO BEDTIME [facility] Last Admin: 05/09/23 20:41 Dose: 200 mg Documented By: KIM Finasteride (Finasteride 5 Mg Tablet) 5 mg PO DAILY [facility] Last Admin: 05/10/23 08:23 Dose: Not Given Documented By: BOBEMA Non-Admin Reason: pt takes at night Ceftriaxone Sodium 1 gm/ (Sodium Chloride) 50 mls @ 100 mls/hr IV Q24H [facility] Last Infusion: 05/09/23 16:47 Dose: Infused Documented By: ANIKA Lactated Ringer's (Lr) 1,000 mls @ 100 mls/hr IVCONT .Q10H [facility] Stop: 05/11/23 06:00 Last Admin: 05/10/23 11:36 Dose: 100 mls/hr Documented By: COTEMA Meclizine HCl (Meclizine Hcl 25 Mg Tablet) 25 mg PO BID [facility] Last Admin: 05/10/23 08:18 Dose: 25 mg Documented By: BOBEMA Melatonin (Melatonin 3 Mg Tablet) 6 mg PO BEDTIME PRN PRN Reason: Insomnia Last Admin: 05/08/23 20:12 Dose: 6 mg Documented By: GAGAN Metoprolol Tartrate (Metoprolol Tartrate 25 Mg Tablet) 25 mg PO BID [facility]; Protocol Last Admin: 05/10/23 10:42 Dose: 25 mg Documented By: EDOUARD Morphine Sulfate (Morphine Sulfate 2 Mg/Ml Cartridge) 2 mg IVPUSH Q6H PRN; Protocol PRN Reason: Pain, Severe (Pain Scale 7-10) Last Admin: 05/10/23 02:29 Dose: 2 mg Documented By: KIM Multivitamins/Vitamin C (Multivitamin Tablet) 1 tab PO DAILY [facility] Last Admin: 05/10/23 08:17 Dose: 1 tab Documented By: BOBEMA Nifedipine (Nifedipine Er 30 Mg Tab.Er.24) 30 mg PO DAILY [facility]; Protocol Last Admin: 05/10/23 08:17 Dose: 30 mg Documented By: EDOUARD Omeprazole (Omeprazole 20 Mg Capsule.Dr) 20 mg PO BID@0630,1630 [facility] Last Admin: 05/10/23 06:41 Dose: 20 mg Documented By: RAY Ondansetron HCl (Ondansetron Hcl 4 Mg/2 Ml Vial) 4 mg IVPUSH Q8H PRN PRN Reason: Nausea and Vomiting Last Admin: 05/09/23 09:45 Dose: 4 mg Documented By: ANIKA Simethicone (Simethicone 80 Mg Tab.Chew) 80 mg PO QIDWMHS [facility] Last Admin: 05/10/23 11:43 Dose: 80 mg Documented By: OBBEMA Sodium Chloride (0.9 % Sodium Chloride Flush 3 Ml Syringe) 3 ml IVFLUSH QSHIFT [facility] Last Admin: 05/10/23 08:18 Dose: 3 ml Documented By: EDOUARD Tamsulosin HCl (Tamsulosin Hcl 0.4 Mg Capsule) 0.4 mg PO BEDTIME [facility] Last Admin: 05/09/23 20:41 Dose: 0.4 mg Documented By: KIM Vitamin D (Cholecalciferol (Vitamin D3) 25 Mcg Tablet) 25 mcg PO DAILY [facility] Last Admin: 05/10/23 08:18 Dose: 25 mcg Documented By: EDOUARD Warfarin Sodium (Warfarin Sodium 1 Mg Tablet) 1 mg PO MoWeFr@1800 [facility] Last Admin: 05/09/23 17:35 Dose: 1 mg Documented By: ANIKA Warfarin Sodium (Warfarin Sodium 2 Mg Tablet) 2 mg PO SuTuThSa@1800 [facility] Labs 05/09/23 06:28 05/10/23 05:12 Labs: Laboratory Results - last 24 hr 05/10/23 05/10/23 05:12 05:12 Hold Purple Top SEE NOTE PT 42.8 H INR 3.5 H Anion Gap 16 Estim Creat Clear Calc 46.5 Estimated GFR 45 Random Glucose 148 H Calcium 8.9 Lactate Dehydrogenase 496 H Cancelled Microbiology Microbiology Results: Microbiology 05/08/23 17:37 Urine Culture - Final Urine clean catch - Urine da silva top 05/08/23 13:10 Blood Culture - Preliminary Blood - Venous No growth after 24 hours. Assessment and Plan (1) Nausea: Status: Acute (2) Abdominal pain: Status: Acute (3) Status post mechanical aortic valve replacement: Status: Acute (4) Infarction of kidney: Status: Acute Plan 73/ male with with metalic heart valve here with abdominal pain and found to have left renal infarct Renal infarct in setting of Aortic mechanical valve INR of 3.5 Elevated LDH from tissue injury, Trending down Goal of INR 2.5-3 Hold coumadin today Nephro consult , hypercoag work up. Hematology to eval Cardiology consult, add Aspirin, ECHO showing clean Valve w no thrombus. Hypercoagulable workup w Hematology BPH continue finasteride, Flomax. Leukocytosis No evidence of infection, pending cultures on Empirical Abx of Ceftriaxone Likely reactive from infarct MARCIO on CKD 3, resolved, DC IVF Follow BMP Abdominal pain Repeated CT scan negative for any new abnormalities seems more of IBS pain cover w empirical Ceftriaxone Symptomatic meds DVT PPx coumadin will need overnight hospital stay for management of acute renal infarct and abdominal pain pending specialist opinion Time Spent With Patient Time: Total time managing care of this patient today ____ minutes. Quality Stroke Does the patient have a stroke diagnosis?: No VTE Prior VTE?: No VTE Risk Level:: Medical - moderate - high VTE Device Contraindication: Treatment Not Indicated VTE Drug Contraindication: N/A - Med Ordered
[2023-05-10 15:10] VITALS: BP 113/61; PULSE 64; RESP 18; TEMP 36.6; O2SAT 94
[2023-05-10 20:00] VITALS: BP 129/84; PULSE 86; RESP 18; TEMP 36.7; O2SAT 95
[2023-05-11 03:42] VITALS: BP 129/77; PULSE 63; RESP 18; TEMP 36.7; O2SAT 95
[2023-05-11 07:07] LABS: INTERNATIONAL NORM RATIO 2.4 (0.9-1.1); Prothrombin Time 29.8 SEC (11.1-13.3)
[2023-05-11 07:55] LABS: Anion Gap 12 (12-20); Blood Urea Nitrogen 15 mg/dL (9-16); Calcium 8.5 mg/dL (8.4-10.2); Carbon Dioxide 25 mmol/L (22-29); Chloride 105 mmol/L (96-108); Creatinine Clr Calc Pharmacy 51.6; Estimated Glomerular Filt Rate 51; Glucose Random 117 mg/dL (60-115); Sodium 138 mmol/L (135-145)
[2023-05-11 08:00] VITALS: BP 122/80; PULSE 54; RESP 16; TEMP 36.6; O2SAT 96
--- NOTE | 2023-05-11 11:06 | PM.PNNEP ---
Subjective Subjective Date of Service: 05/11/23 Interval history: Feels better reporting abdominal pain and inability to tolerate food Noticed PVCs on Tele no fever or chills no hematuria Physical Exam Vital Signs: Vital Signs: Last Vital Signs Temp 97.8 F 05/11/23 08:00 Pulse 54 05/11/23 08:00 Resp 16 05/11/23 08:00 BP 122/80 05/11/23 08:00 Pulse Ox 96 05/11/23 08:00 O2 Del Method Room Air 05/11/23 03:42 BMI result Body Mass Index 27.8 Const: Other: Constitutional : Awake, interactive, not in distress Neck : Normal inspection, Supple Cardiovascular : RRR, no JVP, metalic click, no lower extremity edema Respiratory : good bilateral air entry, no crackles, wheezes or rhonchi Gastrointestinal: soft, lax, Normal bowel sounds, Non tender Skin : Warm, Dry Neurological : Alert & oriented x3, No focal deficit Objective Data Labs 05/09/23 06:28 05/11/23 07:35 Labs: Laboratory Results - last 24 hr 05/11/23 05/11/23 06:22 07:35 Hold Purple Top SEE NOTE PT 29.8 H D INR 2.4 H Sodium 138 Potassium 4.0 Chloride 105 Carbon Dioxide 25 Anion Gap 12 BUN 15 Creatinine 1.38 Estim Creat Clear Calc 51.6 Estimated GFR 51 Random Glucose 117 H Calcium 8.5 Microbiology Microbiology Results: Microbiology 05/08/23 13:10 Blood - Venous Blood Culture - Preliminary No growth after 48 hours. 05/08/23 17:37 Urine clean catch - Urine da silva top Urine Culture - Final 05/08/23 13:04 Blood - Venous Blood Culture - Final Procedures Date of Service Date of Service: 05/11/23 Assessment & Plan Assessment and plan (1) Infarction of kidney: Status: Acute (2) Status post mechanical aortic valve replacement: Status: Acute (3) Anticoagulation management encounter: Status: Acute Plan THIS IS A 73-YEAR-OLD GENTLEMAN WITH MECHANICAL HEART VALVE, MAINTAINED ON COUMADIN, PRESENTS TO THE HOSPITAL WITH ABDOMINAL PAIN, SUDDEN ONSET, AND A CAT SCAN WHICH SHOWS WEDGE-SHAPED PERFUSION DEFECT IN THE LEFT KIDNEY CONSISTENT WITH A RENAL INFARCT. Problem #1: Renal infarct. - This is most likely an embolic event despite him being on the anticoagulation. Alternatively, it could be a defect in the renal vasculature with a dissection causing renal infarct. It is unlikely to be pyelonephritis given he has absence of urinary symptoms and there is no evidence of infection based on the UA and lack of fever as well. - All in all with anticoagulation renal perfusion appears to be restored as evidenced by improving Cr. - OK to dc IVF support. Problem#2: Acute kidney injury. Creatinine did bump, but now it has already improved with IV fluids. - OK to d/c IVF support Time Spent With Patient Time: Total time managing care of this patient today ____ minutes. Progress Note: Quality Stroke Does the patient have a stroke diagnosis?: No
--- NOTE | 2023-05-11 11:18 | HO.PM.IMPN ---
Subjective Subjective Date of Service: 05/11/23 Interval History: Feels better reporting abdominal pain, distention and inability to tolerate food Noticed PVCs on Tele no fever or chills no hematuria Review of Systems Review of Systems: Yes all other systems are reviewed and are negative Physical Exam Vital Signs: Vital Signs: Last Vital Signs Temp 97.8 F 05/11/23 08:00 Pulse 54 05/11/23 08:00 Resp 16 05/11/23 08:00 BP 122/80 05/11/23 08:00 Pulse Ox 96 05/11/23 08:00 O2 Del Method Room Air 05/11/23 03:42 BMI result Body Mass Index 27.8 Const: Other: Constitutional : Awake, interactive, not in distress Neck : Normal inspection, Supple Cardiovascular : RRR, no JVP, metalic click, no lower extremity edema Respiratory : good bilateral air entry, no crackles, wheezes or rhonchi Gastrointestinal: soft, lax, Normal bowel sounds, abdominal distention, no tenderness Skin : Warm, Dry Neurological : Alert & oriented x3, No focal deficit Objective Data Active Medications Acetaminophen (Acetaminophen Supp 650 Mg Supp.Rect) 650 mg IN Q6H PRN PRN Reason: Pain, Mild (Pain Scale 1-3) Al Hydroxide/Mg Hydroxide (Magnesium Hydrox/Alum Hydrox 30 Ml Oral.Susp) 30 ml PO Q4H PRN PRN Reason: Heartburn/Nausea Last Admin: 05/10/23 02:33 Dose: 30 ml Documented By: KIM Ascorbic Acid (Ascorbic Acid 500 Mg Tablet) 500 mg PO DAILY [facility] Last Admin: 05/11/23 08:42 Dose: 500 mg Documented By: BOBEMA Aspirin (Aspirin Enteric Coated 81 Mg Tablet.) 81 mg PO DAILY [facility] Last Admin: 05/11/23 08:42 Dose: 81 mg Documented By: EDOUARD Atorvastatin Calcium (Atorvastatin Calcium 40 Mg Tablet) 40 mg PO BEDTIME [facility] Last Admin: 05/10/23 20:17 Dose: 40 mg Documented By: YSABEL Belladonna Alkaloids/Phenobarbital (Phenobarb/Hyoscy/Atropine/Scop 10 Ml Elixir) 5 ml PO TID PRN PRN Reason: Abdominal pain Docusate Sodium (Docusate Sodium 100 Mg Capsule) 200 mg PO BEDTIME [facility] Last Admin: 05/10/23 20:17 Dose: 200 mg Documented By: YSABEL Finasteride (Finasteride 5 Mg Tablet) 5 mg PO DAILY [facility] Last Admin: 05/11/23 08:16 Dose: Not Given Documented By: COTEMA Non-Admin Reason: Patient Refused Ceftriaxone Sodium 1 gm/ (Sodium Chloride) 50 mls @ 100 mls/hr IV Q24H [facility] Last Infusion: 05/10/23 15:58 Dose: Infused Documented By: COTEMA Meclizine HCl (Meclizine Hcl 25 Mg Tablet) 25 mg PO BID [facility] Last Admin: 05/11/23 08:42 Dose: 25 mg Documented By: BOBEMA Melatonin (Melatonin 3 Mg Tablet) 6 mg PO BEDTIME PRN PRN Reason: Insomnia Last Admin: 05/08/23 20:12 Dose: 6 mg Documented By: GAGAN Metoprolol Tartrate (Metoprolol Tartrate 25 Mg Tablet) 25 mg PO BID [facility]; Protocol Last Admin: 05/11/23 08:42 Dose: 25 mg Documented By: EDOUARD Morphine Sulfate (Morphine Sulfate 2 Mg/Ml Cartridge) 2 mg IVPUSH Q6H PRN; Protocol PRN Reason: Pain, Severe (Pain Scale 7-10) Last Admin: 05/10/23 20:19 Dose: 2 mg Documented By: YSABEL Multivitamins/Vitamin C (Multivitamin Tablet) 1 tab PO DAILY [facility] Last Admin: 05/11/23 08:42 Dose: 1 tab Documented By: COTEMA Nifedipine (Nifedipine Er 30 Mg Tab.Er.24) 30 mg PO DAILY [facility]; Protocol Last Admin: 05/11/23 08:42 Dose: 30 mg Documented By: EDOUARD Omeprazole (Omeprazole 20 Mg Capsule.Dr) 20 mg PO BID@0630,1630 [facility] Last Admin: 05/11/23 06:24 Dose: 20 mg Documented By: YSABEL Ondansetron HCl (Ondansetron Hcl 4 Mg/2 Ml Vial) 4 mg IVPUSH Q8H PRN PRN Reason: Nausea and Vomiting Last Admin: 05/09/23 09:45 Dose: 4 mg Documented By: PARERIC Simethicone (Simethicone 80 Mg Tab.Chew) 80 mg PO QIDWMHS [facility] Last Admin: 05/11/23 08:42 Dose: 80 mg Documented By: EDOUARD Sodium Chloride (0.9 % Sodium Chloride Flush 3 Ml Syringe) 3 ml IVFLUSH QSHIFT [facility] Last Admin: 05/11/23 08:17 Dose: Not Given Documented By: EDOUARD Non-Admin Reason: IV Running Tamsulosin HCl (Tamsulosin Hcl 0.4 Mg Capsule) 0.4 mg PO BEDTIME [facility] Last Admin: 05/10/23 20:17 Dose: 0.4 mg Documented By: LYSZ Vitamin D (Cholecalciferol (Vitamin D3) 25 Mcg Tablet) 25 mcg PO DAILY [facility] Last Admin: 05/11/23 08:42 Dose: 25 mcg Documented By: EDOUARD Warfarin Sodium (Warfarin Sodium 2 Mg Tablet) 2 mg PO MoWeFr@0900 [facility] Warfarin Sodium (Warfarin Sodium 4 Mg Tablet) 4 mg PO SuTuThSa@0900 [facility] Last Admin: 05/11/23 08:43 Dose: 4 mg Documented By: EDOUARD Labs 05/09/23 06:28 05/11/23 07:35 Labs: Laboratory Results - last 24 hr 05/11/23 05/11/23 06:22 07:35 Hold Purple Top SEE NOTE PT 29.8 H D INR 2.4 H Anion Gap 12 Estim Creat Clear Calc 51.6 Estimated GFR 51 Random Glucose 117 H Calcium 8.5 Microbiology Microbiology Results: Microbiology 05/08/23 13:10 Blood Culture - Preliminary Blood - Venous No growth after 48 hours. 05/08/23 17:37 Urine Culture - Final Urine clean catch - Urine da silva top Assessment and Plan (1) Nausea: Status: Acute (2) Abdominal pain: Status: Acute (3) Anticoagulation management encounter: Status: Acute (4) Infarction of kidney: Status: Acute (5) Acute kidney injury superimposed on CKD: Status: Acute Plan 73/ male with with metalic heart valve here with abdominal pain and found to have left renal infarct Renal infarct in setting of Aortic mechanical valve INR of 2.4 Elevated LDH from tissue injury, Trending down Goal of INR 2.5-3 Hold coumadin today Nephro consult , hypercoag work up. Hematology to eval Cardiology consult, add Aspirin, ECHO showing clean Valve w no thrombus. Hypercoagulable workup w Hematology BPH continue finasteride, Flomax Leukocytosis No evidence of infection, pending cultures dc Empirical Abx of Ceftriaxone Likely reactive from infarct MARCIO on CKD 3, resolved, DC IVF Follow BMP Abdominal pain Decrease PO intake Repeated CT scan negative for any new abnormalities seems more of IBS pain Symptomatic meds; Simethicone GI eval DVT PPx coumadin will need overnight hospital stay for management of acute renal infarct and abdominal pain pending specialist opinion Time Spent With Patient Time: Total time managing care of this patient today ____ minutes. Quality Stroke Does the patient have a stroke diagnosis?: No VTE Prior VTE?: No VTE Risk Level:: Medical - moderate - high VTE Device Contraindication: Treatment Not Indicated VTE Drug Contraindication: N/A - Med Ordered
--- NOTE | 2023-05-11 14:24 | PM.HEMONCPN ---
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 He is anticoagulated with warfarin since 1996 when he had a prosthetic valve inserted for aortic stenosis. Review of Systems - Neurologic Reports system reviewed and no additional complaints, except as documented, Reports hearing normal, Denies abnormal gait [facility] Medical History: Medical History (Last Updated 05/07/23 @ 22:37 by Miguel Holloway MD) BPH (benign prostatic hyperplasia) BPV (benign positional vertigo) HLD (hyperlipidemia) Surgical History: Surgical History (Last Updated 05/07/23 @ 22:37 by Miguel Holloway MD) Mechanical heart valve present Social History: Social History (Last Reviewed 05/07/23 @ 21:30 by Miguel Holloway MD) Living Situation History: Household Members: None Housing: Apartment Do you presently have visiting nurse or other home services: No Alcohol History Details: 1. How often do you have a drink containing alcohol?: a. Never AUDIT-C Alcohol total score: 0 Currently Displaying Signs/Symptoms of Alcohol Withdrawal: No Tobacco History: Patient Tobacco Use Status: Never used Tobacco Smoked in Last 30 Days: No Substance Use History: Use of substances other than those prescribed or required for medical reasons: No Currently Displaying Signs/Symptoms of Drug Intoxication Withdrawal: No Domestic Abuse History: Have you been hit, kicked, punched, or otherwise hurt by someone within the past year? If so, by whom?: No Do you feel safe in your current relationship?: No Current Relationship Is there a partner from a previous relationship who is making you feel unsafe now?: No Are you made to feel afraid or neglected: No Healthcare Practices: [facility] Practices: [facility] Advance Directives: Advance Directives: No Advance Directives Information Provided: No Homicidal Assessment: Do you have thoughts of harming others: None Do you have a plan to hurt others: No Plan Nutrition Assessment: Recently lost weight without trying: Unsure How much weight loss: Unsure Eating poorly because of decreased appetite: Yes Nutrition screen score: 5 Nutrition Risks: Poor intake 0-25% >4 days Poor oral hygiene: No Occupation Assessmet: service: No Home Medications and Allergies Current Medications: Current Medications Acetaminophen (Acetaminophen Supp 650 Mg Supp.Rect) 650 mg [place] Q6H PRN PRN Reason: Pain, Mild (Pain Scale 1-3) Al Hydroxide/Mg Hydroxide (Magnesium Hydrox/Alum Hydrox 30 Ml Oral.Susp) 30 ml PO Q4H PRN PRN Reason: Heartburn/Nausea Last Admin: 05/10/23 02:33 Dose: 30 ml Ascorbic Acid (Ascorbic Acid 500 Mg Tablet) 500 mg PO DAILY [facility] Last Admin: 05/11/23 08:42 Dose: 500 mg Aspirin (Aspirin Enteric Coated 81 Mg Tablet.Dr) 81 mg PO DAILY [facility] Last Admin: 05/11/23 08:42 Dose: 81 mg Atorvastatin Calcium (Atorvastatin Calcium 40 Mg Tablet) 40 mg PO BEDTIME [facility] Last Admin: 05/10/23 20:17 Dose: 40 mg Belladonna Alkaloids/Phenobarbital (Phenobarb/Hyoscy/Atropine/Scop 10 Ml Elixir) 5 ml PO TID PRN PRN Reason: Abdominal pain Docusate Sodium (Docusate Sodium 100 Mg Capsule) 200 mg PO BEDTIME [facility] Last Admin: 05/10/23 20:17 Dose: 200 mg Finasteride (Finasteride 5 Mg Tablet) 5 mg PO DAILY [facility] Last Admin: 05/11/23 08:16 Dose: Not Given Meclizine HCl (Meclizine Hcl 25 Mg Tablet) 25 mg PO BID [facility] Last Admin: 05/11/23 08:42 Dose: 25 mg Melatonin (Melatonin 3 Mg Tablet) 6 mg PO BEDTIME PRN PRN Reason: Insomnia Last Admin: 05/08/23 20:12 Dose: 6 mg Metoprolol Tartrate (Metoprolol Tartrate 25 Mg Tablet) 25 mg PO BID [facility]; Protocol Last Admin: 05/11/23 08:42 Dose: 25 mg Morphine Sulfate (Morphine Sulfate 2 Mg/Ml Cartridge) 2 mg IVPUSH Q6H PRN; Protocol PRN Reason: Pain, Severe (Pain Scale 7-10) Last Admin: 05/10/23 20:19 Dose: 2 mg Multivitamins/Vitamin C (Multivitamin Tablet) 1 tab PO DAILY [facility] Last Admin: 05/11/23 08:42 Dose: 1 tab Nifedipine (Nifedipine Er 30 Mg Tab.Er.24) 30 mg PO DAILY [facility]; Protocol Last Admin: 05/11/23 08:42 Dose: 30 mg Omeprazole (Omeprazole 20 Mg Capsule.Dr) 20 mg PO BID@0630,1630 [facility] Last Admin: 05/11/23 06:24 Dose: 20 mg Ondansetron HCl (Ondansetron Hcl 4 Mg/2 Ml Vial) 4 mg IVPUSH Q8H PRN PRN Reason: Nausea and Vomiting Last Admin: 05/09/23 09:45 Dose: 4 mg Polyethylene Glycol (Polyethylene Glycol 3350 17 Gm Powd.Pack) 17 gm PO BID [facility] Last Admin: 05/11/23 12:07 Dose: 17 gm Simethicone (Simethicone 80 Mg Tab.Chew) 80 mg PO QIDWMHS [facility] Last Admin: 05/11/23 12:07 Dose: 80 mg Sodium Chloride (0.9 % Sodium Chloride Flush 3 Ml Syringe) 3 ml IVFLUSH QSHIFT [facility] Last Admin: 05/11/23 08:17 Dose: Not Given Tamsulosin HCl (Tamsulosin Hcl 0.4 Mg Capsule) 0.4 mg PO BEDTIME [facility] Last Admin: 05/10/23 20:17 Dose: 0.4 mg Vitamin D (Cholecalciferol (Vitamin D3) 25 Mcg Tablet) 25 mcg PO DAILY [facility] Last Admin: 05/11/23 08:42 Dose: 25 mcg Warfarin Sodium (Warfarin Sodium 2 Mg Tablet) 2 mg PO MoWeFr@0900 [facility] Warfarin Sodium (Warfarin Sodium 4 Mg Tablet) 4 mg PO SuTuThSa@0900 [facility] Last Admin: 05/11/23 08:43 Dose: 4 mg Home Medications Medication Instructions Recorded Confirmed Type ascorbic acid (vitamin C) 500 mg 500 mg PO DAILY 05/07/23 05/07/23 History tablet atorvastatin 40 mg tablet 40 mg PO BEDTIME 05/07/23 05/07/23 History cholecalciferol (vitamin D3) 25 25 mcg PO DAILY 05/07/23 05/07/23 History mcg (1,000 unit) tablet docusate sodium 100 mg capsule 200 mg PO BEDTIME 05/07/23 05/07/23 History esomeprazole magnesium 40 mg 40 mg PO QAM 05/07/23 05/07/23 History capsule,delayed release finasteride 5 mg tablet 5 mg PO DAILY 05/07/23 05/07/23 History meclizine 25 mg tablet 25 mg PO BID 05/07/23 05/07/23 History multivitamin 1 tab PO DAILY 05/07/23 05/07/23 History tamsulosin 0.4 mg capsule 0.4 mg PO BEDTIME 05/07/23 05/07/23 History warfarin 2 mg tablet 2 mg PO MOWEFR 05/07/23 05/07/23 History warfarin 4 mg tablet 4 mg PO SUTUTHSA 05/07/23 05/07/23 History Allergies Allergy/AdvReac Type Severity Reaction Status Date / Time No Known Allergies Allergy Verified 05/07/23 16:30 Exam Vital signs: Vital Signs Temp 97.8 F 05/11/23 08:00 Pulse 54 05/11/23 08:00 Resp 16 05/11/23 08:00 BP 122/80 05/11/23 08:00 Pulse Ox 96 05/11/23 08:00 O2 Del Method Room Air 05/11/23 03:42 Intake & Output 05/10/23 05/11/23 05/11/23 18:59 06:59 18:59 Intake Total 790 / 2290 1500 / 2290 1480 / 1480 Output Total 400 / 1350 950 / 1350 Balance 390 / 940 550 / 940 1480 / 1480 Urine Output (Average ml/kg/hr) 0.39 0.93 0.93 Intake: Intake, Oral Amount 740 / 1240 500 / 1240 480 / 480 Intake, IV Amount 50 / 1050 1000 / 1050 1000 / 1000 cefTRIAXone sodium 1 gm In 0.9 50 / 50 % Sodium Chloride 50 ml @ 100 mls/hr IV Q24H [facility] Rx#: [id number] Lactated Ringers 1,000 ml @ 100 1000 / 1000 1000 / 1000 mls/hr IVCONT .Q10H [facility] Rx#: [id number] Output: Output, Urine Amount 400 / 1350 950 / 1350 Other: Meal Refused No NPO No Breakfast % Eaten 75% 100% Lunch % Eaten 75% 100% Dinner % Eaten 50% Number of Unmeasured Voids 3 Urine Urinal Bathroom Urine Color Yellow Weight 85.3 kg BMI result Body Mass Index 27.8 Data - Labs CBC & Chem 7: 05/09/23 06:28 05/11/23 07:35 Labs: 05/07/23 16:35 ECG 12 lead EKG Stat EKG Documentation DIRECTED 05/07/23 17:09 Basic Metabolic Panel Stat Complete Blood Count Auto Diff Stat Lipase Stat Liver Panel Stat Magnesium Stat SLIDE REVIEW Stat Troponin-I High Sensitivity Stat 05/07/23 18:16 CT abdomen pelvis w IV con Stat 05/07/23 18:50 PT with INR [Prothrombin Time INR] Stat 05/07/23 19:50 UA ClnCatch+Micro w/rflx Cult Stat 05/07/23 21:50 Admission Assessment - Modified NOW 05/07/23 22:00 Dextrose 5 % and 0.45 % NaCl [D51/2Ns] 1,000 ml IVCONT 100 mls/hr 05/08/23 CXR [XR chest 1V] Stat 05/08/23 00:01 NPO Diet 05/08/23 00:16 Warfarin Sodium [Coumadin] 3.75 mg PO NOW STA 05/08/23 00:47 Warfarin Sodium [Coumadin] 5 mg PO NOW STA 05/08/23 06:16 Complete Blood Count Auto Diff AM Comprehensive Met. Panel AM Lactate Dehydrogenase Routine Prothrombin Time INR DAILY@0600 05/08/23 06:30 Omeprazole [PriLOSEC] 20 mg PO DAILY@0630 05/08/23 07:00 CA echo transthorac w con Routine 05/08/23 07:15 Enoxaparin Sodium [Lovenox] 90 mg SUBCUT Q12H 05/08/23 08:14 Perflutren Lipid Microspheres [Definity] 2.2 mg IVPUSH .STK-MED ONE 05/08/23 09:00 Finasteride [Proscar] 5 mg PO DAILY 05/08/23 09:39 Add Laboratory Test Urgent 05/08/23 10:18 Partial Thromboplastin Time Stat Prothrombin Time INR Stat 05/08/23 15:35 Lactulose [Chronulac] 20 gm PO BID 05/08/23 17:37 Urine Culture Stat 05/08/23 18:00 Warfarin Sodium [Coumadin] 4 mg PO SuTuThSa@1800 05/09/23 CT abdomen pelvis wo IV con Stat 05/09/23 06:28 Basic Metabolic Panel AM Complete Blood Count no Diff AM Prothrombin Time INR DAILY@0600 05/09/23 10:46 PHENobarb/Hyoscy/Atropine/Scop [ Elixir] 5 ml PO ONCE ONE 05/09/23 15:00 PHENobarb/Hyoscy/Atropine/Scop [ Elixir] 5 ml PO TID PRN 05/09/23 15:45 cefTRIAXone sodium [Rocephin] 1 gm 0.9 % Sodium Chloride [Ns] 50 ml IV Q24H 05/09/23 16:00 cefTRIAXone sodium [Rocephin] 1 gm .ROUTE .STK-MED ONE 05/09/23 18:00 Warfarin Sodium [Coumadin] 1 mg PO MoWeFr@1800 Warfarin Sodium [Coumadin] 2 mg PO MoWeFr@1800 05/10/23 05:12 Basic Metabolic Panel AM Hold Lav - Possible Hematology Routine Lactate Dehydrogenase Routine Prothrombin Time INR DAILY@0600 05/10/23 10:00 PHENobarb/Hyoscy/Atropine/Scop [ Elixir] 5 ml PO TID 05/10/23 11:00 Lactated Ringers [Lr] 1,000 ml IVCONT 100 mls/hr 05/10/23 15:20 cefTRIAXone sodium [Rocephin] 1 gm .ROUTE .[facility]-MED ONE 05/10/23 18:00 Warfarin Sodium [Coumadin] 2 mg PO SuTuThSa@1800 05/11/23 06:22 Hold Lav - Possible Hematology Routine Prothrombin Time INR DAILY@0600 05/11/23 07:35 Basic Metabolic Panel AM 05/12/23 18:00 Warfarin Sodium [Coumadin] 2 mg PO SuTuThSa@1800 Laboratory Last Values WBC 12.5 X10*3/uL (4.8-10.8) H 05/09/23 06:28 RBC 4.62 X10*6/uL (4.60-5.80) 05/09/23 06:28 Hgb 14.7 g/dl (14.0-18.0) 05/09/23 06:28 Hct 42.8 % (42.0-52.0) 05/09/23 06:28 MCV 92.6 fL (80.0-98.0) 05/09/23 06:28 MCH 31.8 pg (27.0-33.0) 05/09/23 06:28 MCHC 34.3 g/dl (31.0-36.0) 05/09/23 06:28 RDW 13.0 % (11.0-16.0) 05/09/23 06:28 Plt Count 107 X10*3/uL (160-400) L 05/09/23 06:28 MPV 14.2 fL (9.4-12.4) H 05/09/23 06:28 Immature Gran % (Auto) 0.6 % (0.0-0.4) H 05/08/23 06:16 Neut % (Auto) 84.1 % (45-73) H 05/08/23 06:16 Lymph % (Auto) 6.8 % (20-40) L 05/08/23 06:16 [place] % (Auto) 8.3 % (2-11) 05/08/23 06:16 Eos % (Auto) 0.0 % (0-4) 05/08/23 06:16 Baso % (Auto) 0.2 % (0-2) 05/08/23 06:16 Lymph # (Auto) 1.2 X10*3/uL (1.2-4.9) 05/08/23 06:16 [place] # (Auto) 1.4 X10*3/uL (0.1-1.2) H 05/08/23 06:16 Eos # (Auto) 0.0 X10*3/uL (0.0-0.4) 05/08/23 06:16 Baso # (Auto) 0.0 X10*3/uL (0.0-0.2) 05/08/23 06:16 Abs Immat Gran (auto) 0.11 X10*3/uL (0.00-0.03) H 05/08/23 06:16 Absolute Neuts (auto) 14.5 x10*3/uL (2.0-8.3) H 05/08/23 06:16 Absolute Nucleated RBC 0.000 X10*3/uL (0.0-0.012) 05/09/23 06:28 Nucleated RBC % (auto) 0.0 /100WBC (0.0-0.2) 05/09/23 06:28 Smear Tech's Comments VERIFIED 05/07/23 17:09 Hold Purple Top SEE NOTE 05/11/23 06:22 PT 29.8 SEC (11.1-13.3) H D 05/11/23 06:22 INR 2.4 (0.9-1.1) H 05/11/23 06:22 APTT 53.2 SEC (26.0-36.4) H 05/08/23 10:18 Sodium 138 mmol/L (135-145) 05/11/23 07:35 Potassium 4.0 mmol/L (3.3-5.1) 05/11/23 07:35 Chloride 105 mmol/L (96-108) 05/11/23 07:35 Carbon Dioxide 25 mmol/L (22-29) 05/11/23 07:35 Anion Gap 12 (12-20) 05/11/23 07:35 BUN 15 mg/dL (9-16) 05/11/23 07:35 Creatinine 1.38 mg/dL (0.5-1.4) 05/11/23 07:35 Estim Creat Clear Calc 51.6 05/11/23 07:35 Estimated GFR 51 05/11/23 07:35 Random Glucose 117 mg/dL (60-115) H 05/11/23 07:35 Calcium 8.5 mg/dL (8.4-10.2) 05/11/23 07:35 Magnesium 1.8 mg/dL (1.6-2.6) 05/07/23 17:09 Total Bilirubin 1.7 mg/dL (0.0-1.0) H 05/08/23 06:16 Direct Bilirubin 0.7 mg/dL (0.0-0.5) H 05/07/23 17:09 AST 37 U/L (5-37) 05/08/23 06:16 ALT 37 U/L (0-40) 05/08/23 06:16 Alkaline Phosphatase 92 U/L (39-117) 05/08/23 06:16 Lactate Dehydrogenase 496 U/L (118-273) H 05/10/23 05:12 Lactate Dehydrogenase Cancelled 05/10/23 05:12 Troponin I High Sens 6.0 ng/L (<3.5-35.0) 05/07/23 17:09 Total Protein 7.0 g/dL (6.5-8.0) 05/08/23 06:16 Albumin 3.8 g/dL (3.5-5.0) 05/08/23 06:16 Lipase 12 U/L (8-78) 05/07/23 17:09 Urine Color Dark Yellow 05/07/23 19:50 Urine Appearance Clear 05/07/23 19:50 Urine pH 6.0 (5.0-9.0) 05/07/23 19:50 Ur Specific [place] >= 1.030 (1.005-1.025) H 05/07/23 19:50 Urine Protein 30 (1+) mg/dL (Neg-Trace) H 05/07/23 19:50 Urine Glucose (UA) Negative mg/dL (Negative) 05/07/23 19:50 Urine Ketones Negative mg/dL (Negative) 05/07/23 19:50 Urine Blood Negative (Negative) 05/07/23 19:50 Urine Nitrite Negative (Negative) 05/07/23 19:50 Ur Leukocyte Esterase Negative (Negative) 05/07/23 19:50 Urine RBC 3-5 /HPF (0-2) H 05/07/23 19:50 Urine WBC 0-5 /HPF (0-5) 05/07/23 19:50 Ur Squamous Epith Cells 0-2 /HPF (0-2) 05/07/23 19:50 Urine Bacteria None Seen (None Seen) 05/07/23 19:50 Hyaline Casts 0-2 /LPF (0-2) 05/07/23 19:50 - Imaging Radiologist's impression: ITS Impressions Abdomen/Pelvis CT 05/07/23 19:31 IMPRESSION: A large wedge-shaped perfusion defect is seen of the upper pole and interpolar aspect of the left kidney. There is adjacent perinephric stranding. No obstructive uropathy or calculus is noted. The imaging findings are most consistent with focal pyelonephritis or a focal renal infarction. Further differential considerations including drug-induced interstitial nephritis and renal lymphoma are considered unlikely. Recommend clinical correlation, including correlation with the patient's most recent urinalysis. Fleischner guidelines were followed. Chest X-Ray 05/08/23 00:25 IMPRESSION: No active cardiopulmonary disease. Abdomen/Pelvis CT 05/09/23 11:46 IMPRESSION: No new abnormalities. Evaluation of renal infarct is limited without intravenous contrast. There is mild perinephric stranding seen on the left. Fleischner guidelines were followed.
--- NOTE | 2023-05-11 14:29 | PM.HEMONCCN ---
Subjective - Subjective Chief complaint: renal infarct Patient: new to practice Consult date: 05/11/23 Primary Care Provider: Unknown Physician HPI - Consult Narrative Narrative: Ean Brown is a 73 year old male who had a [place] prosthetic aortic vavle inserted in 1996. He now presents with a renal infarct. We are consulted on May 09, 2023 for advice. I was informed the consult was desired yesterday afternoon. It was discussed fully with Dr. Peralta yesterday. Review of Systems - Constitutional Reports body ache(s), Reports weakness - Eyes Reports other - ENT Reports other - Cardiovascular Reports fast heart rate, Reports shortness of breath - Respiratory Reports dyspnea on exertion - Gastrointestinal Reports abdominal pain - Genitourinary Genitourinary: Reports urinary hesitancy - Neurologic Reports system reviewed and no additional complaints, except as documented, Reports hearing normal, Denies abnormal gait [facility] Medical History: Medical History (Last Updated 05/07/23 @ 22:37 by Miguel Holloway MD) BPH (benign prostatic hyperplasia) BPV (benign positional vertigo) HLD (hyperlipidemia) Surgical History: Surgical History (Last Updated 05/07/23 @ 22:37 by Miguel Holloway MD) Mechanical heart valve present Social History: Social History (Last Reviewed 05/07/23 @ 21:30 by Miguel Holloway MD) Living Situation History: Household Members: None Housing: Apartment Do you presently have visiting nurse or other home services: No Alcohol History Details: 1. How often do you have a drink containing alcohol?: a. Never AUDIT-C Alcohol total score: 0 Currently Displaying Signs/Symptoms of Alcohol Withdrawal: No Tobacco History: Patient Tobacco Use Status: Never used Tobacco Smoked in Last 30 Days: No Substance Use History: Use of substances other than those prescribed or required for medical reasons: No Currently Displaying Signs/Symptoms of Drug Intoxication Withdrawal: No Domestic Abuse History: Have you been hit, kicked, punched, or otherwise hurt by someone within the past year? If so, by whom?: No Do you feel safe in your current relationship?: No Current Relationship Is there a partner from a previous relationship who is making you feel unsafe now?: No Are you made to feel afraid or neglected: No Healthcare Practices: Confucianist Healthcare Practices: Anabaptist Advance Directives: Advance Directives: No Advance Directives Information Provided: No Homicidal Assessment: Do you have thoughts of harming others: None Do you have a plan to hurt others: No Plan Nutrition Assessment: Recently lost weight without trying: Unsure How much weight loss: Unsure Eating poorly because of decreased appetite: Yes Nutrition screen score: 5 Nutrition Risks: Poor intake 0-25% >4 days Poor oral hygiene: No Occupation Assessmet: service: No Home Medications and Allergies Current Medications: Current Medications Acetaminophen (Acetaminophen Supp 650 Mg Supp.Rect) 650 mg [place] Q6H PRN PRN Reason: Pain, Mild (Pain Scale 1-3) Al Hydroxide/Mg Hydroxide (Magnesium Hydrox/Alum Hydrox 30 Ml Oral.Susp) 30 ml PO Q4H PRN PRN Reason: Heartburn/Nausea Last Admin: 05/10/23 02:33 Dose: 30 ml Ascorbic Acid (Ascorbic Acid 500 Mg Tablet) 500 mg PO DAILY ON LICENSE OF [facility] Last Admin: 05/11/23 08:42 Dose: 500 mg Aspirin (Aspirin Enteric Coated 81 Mg Tablet.Dr) 81 mg PO DAILY ON LICENSE OF [facility] Last Admin: 05/11/23 08:42 Dose: 81 mg Atorvastatin Calcium (Atorvastatin Calcium 40 Mg Tablet) 40 mg PO BEDTIME ON LICENSE OF [facility] Last Admin: 05/10/23 20:17 Dose: 40 mg Belladonna Alkaloids/Phenobarbital (Phenobarb/Hyoscy/Atropine/Scop 10 Ml Elixir) 5 ml PO TID PRN PRN Reason: Abdominal pain Docusate Sodium (Docusate Sodium 100 Mg Capsule) 200 mg PO BEDTIME ON LICENSE OF [facility] Last Admin: 05/10/23 20:17 Dose: 200 mg Finasteride (Finasteride 5 Mg Tablet) 5 mg PO DAILY ON LICENSE OF [facility] Last Admin: 05/11/23 08:16 Dose: Not Given Meclizine HCl (Meclizine Hcl 25 Mg Tablet) 25 mg PO BID ON LICENSE OF [facility] Last Admin: 05/11/23 08:42 Dose: 25 mg Melatonin (Melatonin 3 Mg Tablet) 6 mg PO BEDTIME PRN PRN Reason: Insomnia Last Admin: 05/08/23 20:12 Dose: 6 mg Metoprolol Tartrate (Metoprolol Tartrate 25 Mg Tablet) 25 mg PO BID ON LICENSE OF [facility]; Protocol Last Admin: 05/11/23 08:42 Dose: 25 mg Morphine Sulfate (Morphine Sulfate 2 Mg/Ml Cartridge) 2 mg IVPUSH Q6H PRN; Protocol PRN Reason: Pain, Severe (Pain Scale 7-10) Last Admin: 05/10/23 20:19 Dose: 2 mg Multivitamins/Vitamin C (Multivitamin Tablet) 1 tab PO DAILY ON LICENSE OF [facility] Last Admin: 05/11/23 08:42 Dose: 1 tab Nifedipine (Nifedipine Er 30 Mg Tab.Er.24) 30 mg PO DAILY ON LICENSE OF [facility]; Protocol Last Admin: 05/11/23 08:42 Dose: 30 mg Omeprazole (Omeprazole 20 Mg Capsule.Dr) 20 mg PO BID@0630,1630 ON LICENSE OF [facility] Last Admin: 05/11/23 06:24 Dose: 20 mg Ondansetron HCl (Ondansetron Hcl 4 Mg/2 Ml Vial) 4 mg IVPUSH Q8H PRN PRN Reason: Nausea and Vomiting Last Admin: 05/09/23 09:45 Dose: 4 mg Polyethylene Glycol (Polyethylene Glycol 3350 17 Gm Powd.Pack) 17 gm PO BID ON LICENSE OF [facility] Last Admin: 05/11/23 12:07 Dose: 17 gm Simethicone (Simethicone 80 Mg Tab.Chew) 80 mg PO QIDWMHS ON LICENSE OF [facility] Last Admin: 05/11/23 12:07 Dose: 80 mg Sodium Chloride (0.9 % Sodium Chloride Flush 3 Ml Syringe) 3 ml IVFLUSH QSHIFT ON LICENSE OF [facility] Last Admin: 05/11/23 08:17 Dose: Not Given Tamsulosin HCl (Tamsulosin Hcl 0.4 Mg Capsule) 0.4 mg PO BEDTIME ON LICENSE OF [facility] Last Admin: 05/10/23 20:17 Dose: 0.4 mg Vitamin D (Cholecalciferol (Vitamin D3) 25 Mcg Tablet) 25 mcg PO DAILY ON LICENSE OF [facility] Last Admin: 05/11/23 08:42 Dose: 25 mcg Warfarin Sodium (Warfarin Sodium 2 Mg Tablet) 2 mg PO MoWeFr@0900 ON LICENSE OF [facility] Warfarin Sodium (Warfarin Sodium 4 Mg Tablet) 4 mg PO SuTuThSa@0900 ON LICENSE OF [facility] Last Admin: 05/11/23 08:43 Dose: 4 mg Home Medications Medication Instructions Recorded Confirmed Type ascorbic acid (vitamin C) 500 mg 500 mg PO DAILY 05/07/23 05/07/23 History tablet atorvastatin 40 mg tablet 40 mg PO BEDTIME 05/07/23 05/07/23 History cholecalciferol (vitamin D3) 25 25 mcg PO DAILY 05/07/23 05/07/23 History mcg (1,000 unit) tablet docusate sodium 100 mg capsule 200 mg PO BEDTIME 05/07/23 05/07/23 History esomeprazole magnesium 40 mg 40 mg PO QAM 05/07/23 05/07/23 History capsule,delayed release finasteride 5 mg tablet 5 mg PO DAILY 05/07/23 05/07/23 History meclizine 25 mg tablet 25 mg PO BID 05/07/23 05/07/23 History multivitamin 1 tab PO DAILY 05/07/23 05/07/23 History tamsulosin 0.4 mg capsule 0.4 mg PO BEDTIME 05/07/23 05/07/23 History warfarin 2 mg tablet 2 mg PO MOWEFR 05/07/23 05/07/23 History warfarin 4 mg tablet 4 mg PO SUTUTHSA 05/07/23 05/07/23 History Allergies Allergy/AdvReac Type Severity Reaction Status Date / Time No Known Allergies Allergy Verified 05/07/23 16:30 Physical Exam Vital signs: Vital Signs Temp 97.8 F 05/11/23 08:00 Pulse 54 05/11/23 08:00 Resp 16 05/11/23 08:00 BP 122/80 05/11/23 08:00 Pulse Ox 96 05/11/23 08:00 O2 Del Method Room Air 05/11/23 03:42 Intake & Output 05/10/23 05/11/23 05/11/23 18:59 06:59 18:59 Intake Total 790 / 2290 1500 / 2290 1480 / 1480 Output Total 400 / 1350 950 / 1350 Balance 390 / 940 550 / 940 1480 / 1480 Urine Output (Average ml/kg/hr) 0.39 0.93 0.93 Intake: Intake, Oral Amount 740 / 1240 500 / 1240 480 / 480 Intake, IV Amount 50 / 1050 1000 / 1050 1000 / 1000 cefTRIAXone sodium 1 gm In 0.9 50 / 50 % Sodium Chloride 50 ml @ 100 mls/hr IV Q24H [facility] Rx#: [id number] Lactated Ringers 1,000 ml @ 100 1000 / 1000 1000 / 1000 mls/hr IVCONT .Q10H [facility] Rx#: [id number] Output: Output, Urine Amount 400 / 1350 950 / 1350 Other: Meal Refused No NPO No Breakfast % Eaten 75% 100% Lunch % Eaten 75% 100% Dinner % Eaten 50% Number of Unmeasured Voids 3 Urine Urinal Bathroom Urine Color Yellow Weight 85.3 kg - Constitutional Present: no acute distress - Routine HEENT Exam Head: Present: atraumatic, normal inspection - Routine Neck Exam Present: supple, full ROM - Routine Respiratory Exam Present: decreased breath sounds - Routine Cardiovascular Exam Cardiovascular: Present: RRR - Routine Abdominal Exam Present: diminished bowel sounds - Routine Extremities Exam Present: nontender Hem/Onc Consult Result - Labs CBC & Chem 7: 05/09/23 06:28 05/11/23 07:35 Labs: BMP 05/11/23 07:35 Sodium 138 Potassium 4.0 Chloride 105 Carbon Dioxide 25 BUN 15 Creatinine 1.38 Calcium 8.5 Assessment and Plan Patient Active problem list reviewed?: Yes (1) Infarction of kidney Status: Acute Assessment and plan: We recommend continuying the warfarin with the INR between 2.5 and 3.5. He should be on aspirin 81 mg daily and obsere for bleeding. The echocardiogram is noted. Strongly recommend Customer Care Team Coach reconsuilt on 05-12-2023. - Time Spent With Patient Time Spent with Patient (in minutes): 20
[2023-05-11 15:13] VITALS: BP 108/66; PULSE 68; RESP 18; TEMP 36.9; O2SAT 94
[2023-05-11 19:46] VITALS: BP 113/75; PULSE 75; RESP 20; TEMP 36.4; O2SAT 94
[2023-05-12 03:30] VITALS: BP 136/83; PULSE 75; RESP 16; TEMP 36.5; O2SAT 96
[2023-05-12 07:24] VITALS: BP 127/82; PULSE 73; RESP 16; TEMP 36.4; O2SAT 97
--- NOTE | 2023-05-12 11:24 | HO.PM.IMPN ---
Subjective Subjective Date of Service: 05/12/23 Interval History: Feels better improved abdominal pain, and he is able to tolerate food INR dropped to 1.9 no fever or chills no hematuria Review of Systems Review of Systems: Yes all other systems are reviewed and are negative Physical Exam Vital Signs: Vital Signs: Last Vital Signs Temp 97.5 F 05/12/23 07:24 Pulse 73 05/12/23 07:24 Resp 16 05/12/23 07:24 BP 127/82 05/12/23 07:24 Pulse Ox 97 05/12/23 07:24 O2 Del Method Room Air 05/12/23 07:24 BMI result Body Mass Index 27.8 Const: Other: Constitutional : Awake, interactive, not in distress Neck : Normal inspection, Supple Cardiovascular : RRR, no JVP, metalic click, no lower extremity edema Respiratory : good bilateral air entry, no crackles, wheezes or rhonchi Gastrointestinal: soft, lax, Normal bowel sounds, less abdominal distention, no tenderness Skin : Warm, Dry Neurological : Alert & oriented x3, No focal deficit Objective Data Active Medications Acetaminophen (Acetaminophen Supp 650 Mg Supp.Rect) 650 mg [place] Q6H PRN PRN Reason: Pain, Mild (Pain Scale 1-3) Al Hydroxide/Mg Hydroxide (Magnesium Hydrox/Alum Hydrox 30 Ml Oral.Susp) 30 ml PO Q4H PRN PRN Reason: Heartburn/Nausea Last Admin: 05/10/23 02:33 Dose: 30 ml Documented By: KIM Ascorbic Acid (Ascorbic Acid 500 Mg Tablet) 500 mg PO DAILY [facility] Last Admin: 05/12/23 08:55 Dose: 500 mg Documented By: ZABRINA Aspirin (Aspirin Enteric Coated 81 Mg Tablet.) 81 mg PO DAILY [facility] Last Admin: 05/12/23 08:55 Dose: 81 mg Documented By: ZABRINA Atorvastatin Calcium (Atorvastatin Calcium 40 Mg Tablet) 40 mg PO BEDTIME [facility] Last Admin: 05/11/23 20:04 Dose: 40 mg Documented By: ROSEY Dicyclomine HCl (Dicyclomine Hcl 10 Mg Capsule) 10 mg PO QIDACHS [facility] Last Admin: 05/12/23 11:05 Dose: 10 mg Documented By: ZABRINA Docusate Sodium (Docusate Sodium 100 Mg Capsule) 200 mg PO BEDTIME [facility] Last Admin: 05/11/23 20:04 Dose: 200 mg Documented By: ROSEY Enoxaparin Sodium (Enoxaparin Sodium 100 Mg/Ml Syringe) 90 mg 1 mg/kg (90 mg) SUBCUT Q12H [facility] Last Admin: 05/12/23 11:05 Dose: 90 mg Documented By: ZABRINA Finasteride (Finasteride 5 Mg Tablet) 5 mg PO DAILY [facility] Last Admin: 05/12/23 08:57 Dose: 5 mg Documented By: ZABRINA Meclizine HCl (Meclizine Hcl 25 Mg Tablet) 25 mg PO BID [facility] Last Admin: 05/12/23 08:55 Dose: 25 mg Documented By: ZABRINA Melatonin (Melatonin 3 Mg Tablet) 6 mg PO BEDTIME PRN PRN Reason: Insomnia Last Admin: 05/08/23 20:12 Dose: 6 mg Documented By: GAGAN Metoprolol Tartrate (Metoprolol Tartrate 25 Mg Tablet) 25 mg PO BID [facility]; Protocol Last Admin: 05/12/23 08:55 Dose: 25 mg Documented By: ZABRINA Morphine Sulfate (Morphine Sulfate 2 Mg/Ml Cartridge) 2 mg IVPUSH Q6H PRN; Protocol PRN Reason: Pain, Severe (Pain Scale 7-10) Last Admin: 05/10/23 20:19 Dose: 2 mg Documented By: YSABEL Multivitamins/Vitamin C (Multivitamin Tablet) 1 tab PO DAILY [facility] Last Admin: 05/12/23 08:56 Dose: 1 tab Documented By: ZABRINA Nifedipine (Nifedipine Er 30 Mg Tab.Er.24) 30 mg PO DAILY [facility]; Protocol Last Admin: 05/12/23 08:56 Dose: 30 mg Documented By: ZABRINA Omeprazole (Omeprazole 20 Mg Capsule.Dr) 20 mg PO BID@0630,1630 [facility] Last Admin: 05/12/23 05:27 Dose: 20 mg Documented By: ROSEY Ondansetron HCl (Ondansetron Hcl 4 Mg/2 Ml Vial) 4 mg IVPUSH Q8H PRN PRN Reason: Nausea and Vomiting Last Admin: 05/09/23 09:45 Dose: 4 mg Documented By: ANIKA Polyethylene Glycol (Polyethylene Glycol 3350 17 Gm Powd.Pack) 17 gm PO BID [facility] Last Admin: 05/12/23 08:57 Dose: 17 gm Documented By: ZABRINA Simethicone (Simethicone 80 Mg Tab.Chew) 80 mg PO QIDWMHS [facility] Last Admin: 05/12/23 11:05 Dose: 80 mg Documented By: ZABRINA Sodium Chloride (0.9 % Sodium Chloride Flush 3 Ml Syringe) 3 ml IVFLUSH QSHIFT [facility] Last Admin: 05/12/23 09:00 Dose: 3 ml Documented By: ZABRINA Tamsulosin HCl (Tamsulosin Hcl 0.4 Mg Capsule) 0.4 mg PO BEDTIME [facility] Last Admin: 05/11/23 20:04 Dose: 0.4 mg Documented By: ROSEY Vitamin D (Cholecalciferol (Vitamin D3) 25 Mcg Tablet) 25 mcg PO DAILY [facility] Last Admin: 05/12/23 08:57 Dose: 25 mcg Documented By: ZABRINA Warfarin Sodium (Warfarin Sodium 2 Mg Tablet) 2 mg PO MoWeFr@0900 [facility] Last Admin: 05/12/23 08:56 Dose: 2 mg Documented By: ZABRINA Warfarin Sodium (Warfarin Sodium 4 Mg Tablet) 4 mg PO SuTuThSa@0900 [facility] Last Admin: 05/11/23 08:43 Dose: 4 mg Documented By: EDOUARD Labs 05/09/23 06:28 05/11/23 07:35 Labs: Laboratory Results - last 24 hr 05/12/23 05/12/23 06:22 08:42 Hold Purple Top SEE NOTE PT 23.3 H D INR 1.9 H Hold Blue Top SEE NOTE Hold Yellow Top See Note Assessment and Plan (1) Acute kidney injury superimposed on CKD: Status: Acute (2) Abdominal pain: Status: Acute (3) Anticoagulation management encounter: Status: Acute (4) Infarction of kidney: Status: Acute Plan 73/ male with with metalic heart valve here with abdominal pain and found to have left renal infarct 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 Hematology eval Cardiology consult, add Aspirin, ECHO showing clean Valve w no thrombus. Hypercoagulable workup w Hematology BPH continue finasteride, Flomax Leukocytosis No evidence of infection, pending cultures dc Empirical Abx of Ceftriaxone Likely reactive from infarct MARCIO on CKD 3, resolved, DC IVF Follow BMP Abdominal pain Decrease PO intake Repeated CT scan negative for any new abnormalities seems more of IBS pain Symptomatic meds; Simethicone , Bentyl DVT PPx coumadin will need overnight hospital stay for management of Low INR and acute renal infarct and abdominal pain pending therapeutic INR Time Spent With Patient Time: Total time managing care of this patient today ____ minutes. Quality Stroke Does the patient have a stroke diagnosis?: No VTE Prior VTE?: No VTE Risk Level:: Medical - moderate - high VTE Device Contraindication: Treatment Not Indicated VTE Drug Contraindication: N/A - Med Ordered
--- NOTE | 2023-05-12 12:03 | PM.HEMONCPN ---
Medical Summary - Medical Summary Date of Service: 05/12/23 Primary Care Provider: Unknown Physician Medical Summary: He continues with mild bleeding and leg pain. Interval History Interval history: Ean Brown is a 73 year old male who had a [place] prosthetic aortic vavle inserted in 1996. He now presents with a renal infarct. We are consulted on May 09, 2023 for advice. I was informed the consult was desired yesterday afternoon. It was discussed fully with Dr. Peralta yesterday. Review of Systems - Neurologic Reports system reviewed and no additional complaints, except as documented, Reports hearing normal, Reports weakness, Denies abnormal gait [facility] Medical History: Medical History (Last Updated 05/07/23 @ 22:37 by Miguel Holloway MD) BPH (benign prostatic hyperplasia) BPV (benign positional vertigo) HLD (hyperlipidemia) Surgical History: Surgical History (Last Updated 05/07/23 @ 22:37 by Miguel Holloway MD) Mechanical heart valve present Social History: Social History (Last Reviewed 05/07/23 @ 21:30 by Miguel Holloway MD) Living Situation History: Household Members: None Housing: Apartment Do you presently have visiting nurse or other home services: No Alcohol History Details: 1. How often do you have a drink containing alcohol?: a. Never AUDIT-C Alcohol total score: 0 Currently Displaying Signs/Symptoms of Alcohol Withdrawal: No Tobacco History: Patient Tobacco Use Status: Never used Tobacco Smoked in Last 30 Days: No Substance Use History: Use of substances other than those prescribed or required for medical reasons: No Currently Displaying Signs/Symptoms of Drug Intoxication Withdrawal: No Domestic Abuse History: Have you been hit, kicked, punched, or otherwise hurt by someone within the past year? If so, by whom?: No Do you feel safe in your current relationship?: No Current Relationship Is there a partner from a previous relationship who is making you feel unsafe now?: No Are you made to feel afraid or neglected: No Healthcare Practices: Worship Healthcare Practices: Religious Advance Directives: Advance Directives: No Advance Directives Information Provided: No Homicidal Assessment: Do you have thoughts of harming others: None Do you have a plan to hurt others: No Plan Nutrition Assessment: Recently lost weight without trying: Unsure How much weight loss: Unsure Eating poorly because of decreased appetite: Yes Nutrition screen score: 5 Nutrition Risks: Poor intake 0-25% >4 days Poor oral hygiene: No Occupation Assessmet: service: No Home Medications and Allergies Current Medications: Current Medications Acetaminophen (Acetaminophen Supp 650 Mg Supp.Rect) 650 mg [place] Q6H PRN PRN Reason: Pain, Mild (Pain Scale 1-3) Al Hydroxide/Mg Hydroxide (Magnesium Hydrox/Alum Hydrox 30 Ml Oral.Susp) 30 ml PO Q4H PRN PRN Reason: Heartburn/Nausea Last Admin: 05/10/23 02:33 Dose: 30 ml Ascorbic Acid (Ascorbic Acid 500 Mg Tablet) 500 mg PO DAILY [facility] Last Admin: 05/12/23 08:55 Dose: 500 mg Aspirin (Aspirin Enteric Coated 81 Mg Tablet.Dr) 81 mg PO DAILY [facility] Last Admin: 05/12/23 08:55 Dose: 81 mg Atorvastatin Calcium (Atorvastatin Calcium 40 Mg Tablet) 40 mg PO BEDTIME [facility] Last Admin: 05/11/23 20:04 Dose: 40 mg Dicyclomine HCl (Dicyclomine Hcl 10 Mg Capsule) 10 mg PO QIDACHS [facility] Last Admin: 05/12/23 11:05 Dose: 10 mg Docusate Sodium (Docusate Sodium 100 Mg Capsule) 200 mg PO BEDTIME [facility] Last Admin: 05/11/23 20:04 Dose: 200 mg Enoxaparin Sodium (Enoxaparin Sodium 100 Mg/Ml Syringe) 90 mg 1 mg/kg (90 mg) SUBCUT Q12H [facility] Last Admin: 05/12/23 11:05 Dose: 90 mg Finasteride (Finasteride 5 Mg Tablet) 5 mg PO DAILY [facility] Last Admin: 05/12/23 08:57 Dose: 5 mg Meclizine HCl (Meclizine Hcl 25 Mg Tablet) 25 mg PO BID [facility] Last Admin: 05/12/23 08:55 Dose: 25 mg Melatonin (Melatonin 3 Mg Tablet) 6 mg PO BEDTIME PRN PRN Reason: Insomnia Last Admin: 05/08/23 20:12 Dose: 6 mg Metoprolol Tartrate (Metoprolol Tartrate 25 Mg Tablet) 25 mg PO BID [facility]; Protocol Last Admin: 05/12/23 08:55 Dose: 25 mg Morphine Sulfate (Morphine Sulfate 2 Mg/Ml Cartridge) 2 mg IVPUSH Q6H PRN; Protocol PRN Reason: Pain, Severe (Pain Scale 7-10) Last Admin: 05/10/23 20:19 Dose: 2 mg Multivitamins/Vitamin C (Multivitamin Tablet) 1 tab PO DAILY [facility] Last Admin: 05/12/23 08:56 Dose: 1 tab Nifedipine (Nifedipine Er 30 Mg Tab.Er.24) 30 mg PO DAILY [facility]; Protocol Last Admin: 05/12/23 08:56 Dose: 30 mg Omeprazole (Omeprazole 20 Mg Capsule.Dr) 20 mg PO BID@0630,1630 [facility] Last Admin: 05/12/23 05:27 Dose: 20 mg Ondansetron HCl (Ondansetron Hcl 4 Mg/2 Ml Vial) 4 mg IVPUSH Q8H PRN PRN Reason: Nausea and Vomiting Last Admin: 05/09/23 09:45 Dose: 4 mg Polyethylene Glycol (Polyethylene Glycol 3350 17 Gm Powd.Pack) 17 gm PO BID [facility] Last Admin: 05/12/23 08:57 Dose: 17 gm Simethicone (Simethicone 80 Mg Tab.Chew) 80 mg PO QIDWMHS [facility] Last Admin: 05/12/23 11:05 Dose: 80 mg Sodium Chloride (0.9 % Sodium Chloride Flush 3 Ml Syringe) 3 ml IVFLUSH QSHIFT [facility] Last Admin: 05/12/23 09:00 Dose: 3 ml Tamsulosin HCl (Tamsulosin Hcl 0.4 Mg Capsule) 0.4 mg PO BEDTIME [facility] Last Admin: 05/11/23 20:04 Dose: 0.4 mg Vitamin D (Cholecalciferol (Vitamin D3) 25 Mcg Tablet) 25 mcg PO DAILY [facility] Last Admin: 05/12/23 08:57 Dose: 25 mcg Warfarin Sodium (Warfarin Sodium 2 Mg Tablet) 2 mg PO MoWeFr@0900 [facility] Last Admin: 05/12/23 08:56 Dose: 2 mg Warfarin Sodium (Warfarin Sodium 4 Mg Tablet) 4 mg PO SuTuThSa@0900 [facility] Last Admin: 05/11/23 08:43 Dose: 4 mg Home Medications Medication Instructions Recorded Confirmed Type ascorbic acid (vitamin C) 500 mg 500 mg PO DAILY 05/07/23 05/07/23 History tablet atorvastatin 40 mg tablet 40 mg PO BEDTIME 05/07/23 05/07/23 History cholecalciferol (vitamin D3) 25 25 mcg PO DAILY 05/07/23 05/07/23 History mcg (1,000 unit) tablet docusate sodium 100 mg capsule 200 mg PO BEDTIME 05/07/23 05/07/23 History esomeprazole magnesium 40 mg 40 mg PO QAM 05/07/23 05/07/23 History capsule,delayed release finasteride 5 mg tablet 5 mg PO DAILY 05/07/23 05/07/23 History meclizine 25 mg tablet 25 mg PO BID 05/07/23 05/07/23 History multivitamin 1 tab PO DAILY 05/07/23 05/07/23 History tamsulosin 0.4 mg capsule 0.4 mg PO BEDTIME 05/07/23 05/07/23 History warfarin 2 mg tablet 2 mg PO MOWEFR 05/07/23 05/07/23 History warfarin 4 mg tablet 4 mg PO SUTUTHSA 05/07/23 05/07/23 History Allergies Allergy/AdvReac Type Severity Reaction Status Date / Time No Known Allergies Allergy Verified 05/07/23 16:30 Exam Vital signs: Vital Signs Temp 97.5 F 05/12/23 07:24 Pulse 73 05/12/23 07:24 Resp 16 05/12/23 07:24 BP 127/82 05/12/23 07:24 Pulse Ox 97 05/12/23 07:24 O2 Del Method Room Air 05/12/23 07:24 Intake & Output 05/11/23 05/12/23 05/12/23 18:59 06:59 18:59 Intake Total 1480 / 1720 240 / 1720 Balance 1480 / 1720 240 / 1720 Intake: Intake, Oral Amount 480 / 720 240 / 720 Intake, IV Amount 1000 / 1000 Lactated Ringers 1,000 ml @ 100 1000 / 1000 mls/hr IVCONT .Q10H [facility] Rx#: [id number] Other: Meal Refused No NPO No Breakfast % Eaten 100% Lunch % Eaten 100% Dinner % Eaten 25% Number of Unmeasured Voids 3 1 Number of Bowel Movements 0 Urine Bathroom Bathroom Urine Color Yellow Weight 85.3 kg BMI result Body Mass Index 27.8 - Constitutional Present: no acute distress - Routine HEENT Exam Head: Present: atraumatic, normal inspection - Routine Respiratory Exam Present: decreased breath sounds - Routine Cardiovascular Exam Cardiovascular: Present: RRR - Routine Abdominal Exam Present: diminished bowel sounds - Routine Extremities Exam Present: nontender Data - Labs CBC & Chem 7: 05/09/23 06:28 05/11/23 07:35 Labs: 05/07/23 16:35 ECG 12 lead EKG Stat EKG Documentation DIRECTED 05/07/23 17:09 Basic Metabolic Panel Stat Complete Blood Count Auto Diff Stat Lipase Stat Liver Panel Stat Magnesium Stat SLIDE REVIEW Stat Troponin-I High Sensitivity Stat 05/07/23 18:16 CT abdomen pelvis w IV con Stat 05/07/23 18:50 PT with INR [Prothrombin Time INR] Stat 05/07/23 19:50 UA ClnCatch+Micro w/rflx Cult Stat 05/07/23 21:50 Admission Assessment - Modified NOW 05/07/23 22:00 Dextrose 5 % and 0.45 % NaCl [D51/2Ns] 1,000 ml IVCONT 100 mls/hr 05/08/23 CXR [XR chest 1V] Stat 05/08/23 00:01 NPO Diet 05/08/23 00:16 Warfarin Sodium [Coumadin] 3.75 mg PO NOW STA 05/08/23 00:47 Warfarin Sodium [Coumadin] 5 mg PO NOW STA 05/08/23 06:16 Complete Blood Count Auto Diff AM Comprehensive Met. Panel AM Lactate Dehydrogenase Routine Prothrombin Time INR DAILY@0600 05/08/23 06:30 Omeprazole [PriLOSEC] 20 mg PO DAILY@0630 05/08/23 07:00 CA echo transthorac w con Routine 05/08/23 07:15 Enoxaparin Sodium [Lovenox] 90 mg SUBCUT Q12H 05/08/23 08:14 Perflutren Lipid Microspheres [Definity] 2.2 mg IVPUSH .STK-MED ONE 05/08/23 09:00 Finasteride [Proscar] 5 mg PO DAILY 05/08/23 09:39 Add Laboratory Test Urgent 05/08/23 10:18 Partial Thromboplastin Time Stat Prothrombin Time INR Stat 05/08/23 15:35 Lactulose [Chronulac] 20 gm PO BID 05/08/23 17:37 Urine Culture Stat 05/08/23 18:00 Warfarin Sodium [Coumadin] 4 mg PO SuTuThSa@1800 05/09/23 CT abdomen pelvis wo IV con Stat 05/09/23 06:28 Basic Metabolic Panel AM Complete Blood Count no Diff AM Prothrombin Time INR DAILY@0600 05/09/23 10:46 PHENobarb/Hyoscy/Atropine/Scop [ Elixir] 5 ml PO ONCE ONE 05/09/23 15:00 PHENobarb/Hyoscy/Atropine/Scop [ Elixir] 5 ml PO TID PRN 05/09/23 15:45 cefTRIAXone sodium [Rocephin] 1 gm 0.9 % Sodium Chloride [Ns] 50 ml IV Q24H 05/09/23 16:00 cefTRIAXone sodium [Rocephin] 1 gm .ROUTE .STK-MED ONE 05/09/23 18:00 Warfarin Sodium [Coumadin] 1 mg PO MoWeFr@1800 Warfarin Sodium [Coumadin] 2 mg PO MoWeFr@1800 05/10/23 05:12 Basic Metabolic Panel AM Hold Lav - Possible Hematology Routine Lactate Dehydrogenase Routine Prothrombin Time INR DAILY@0600 05/10/23 10:00 PHENobarb/Hyoscy/Atropine/Scop [ Elixir] 5 ml PO TID 05/10/23 11:00 Lactated Ringers [Lr] 1,000 ml IVCONT 100 mls/hr 05/10/23 15:20 cefTRIAXone sodium [Rocephin] 1 gm .ROUTE .STK-MED ONE 05/10/23 18:00 Warfarin Sodium [Coumadin] 2 mg PO SuTuThSa@1800 05/11/23 06:22 Hold Lav - Possible Hematology Routine Prothrombin Time INR DAILY@0600 05/11/23 07:35 Basic Metabolic Panel AM 05/11/23 11:13 PHENobarb/Hyoscy/Atropine/Scop [ Elixir] 5 ml PO TID PRN 05/12/23 06:22 Hold Gold Routine Prothrombin Time INR DAILY@0600 05/12/23 09:06 Hold Lav - Possible Hematology Routine 05/12/23 10:45 Warfarin Sodium [Coumadin] 2 mg PO ONCE ONE 05/12/23 18:00 Warfarin Sodium [Coumadin] 2 mg PO SuTuThSa@1800 Laboratory Last Values WBC 12.5 X10*3/uL (4.8-10.8) H 05/09/23 06:28 RBC 4.62 X10*6/uL (4.60-5.80) 05/09/23 06:28 Hgb 14.7 g/dl (14.0-18.0) 05/09/23 06:28 Hct 42.8 % (42.0-52.0) 05/09/23 06:28 MCV 92.6 fL (80.0-98.0) 05/09/23 06:28 MCH 31.8 pg (27.0-33.0) 05/09/23 06: MCHC 34.3 g/dl (31.0-36.0) 05/09/23 06:28 RDW 13.0 % (11.0-16.0) 05/09/23 06:28 Plt Count 107 X10*3/uL (160-400) L 05/09/23 06:28 MPV 14.2 fL (9.4-12.4) H 05/09/23 06:28 Immature Gran % (Auto) 0.6 % (0.0-0.4) H 05/08/23 06:16 Neut % (Auto) 84.1 % (45-73) H 05/08/23 06:16 Lymph % (Auto) 6.8 % (20-40) L 05/08/23 06:16 [place] % (Auto) 8.3 % (2-11) 05/08/23 06:16 Eos % (Auto) 0.0 % (0-4) 05/08/23 06:16 Baso % (Auto) 0.2 % (0-2) 05/08/23 06:16 Lymph # (Auto) 1.2 X10*3/uL (1.2-4.9) 05/08/23 06:16 [place] # (Auto) 1.4 X10*3/uL (0.1-1.2) H 05/08/23 06:16 Eos # (Auto) 0.0 X10*3/uL (0.0-0.4) 05/08/23 06:16 Baso # (Auto) 0.0 X10*3/uL (0.0-0.2) 05/08/23 06:16 Abs Immat Gran (auto) 0.11 X10*3/uL (0.00-0.03) H 05/08/23 06:16 Absolute Neuts (auto) 14.5 x10*3/uL (2.0-8.3) H 05/08/23 06:16 Absolute Nucleated RBC 0.000 X10*3/uL (0.0-0.012) 05/09/23 06:28 Nucleated RBC % (auto) 0.0 /100WBC (0.0-0.2) 05/09/23 06:28 Smear Tech's Comments VERIFIED 05/07/23 17:09 Hold Purple Top SEE NOTE 05/12/23 06:22 PT 23.3 SEC (11.1-13.3) H D 05/12/23 06:22 INR 1.9 (0.9-1.1) H 05/12/23 06:22 APTT 53.2 SEC (26.0-36.4) H 05/08/23 10:18 Hold Blue Top SEE NOTE 05/12/23 08:42 Sodium 138 mmol/L (135-145) 05/11/23 07:35 Potassium 4.0 mmol/L (3.3-5.1) 05/11/23 07:35 Chloride 105 mmol/L (96-108) 05/11/23 07:35 Carbon Dioxide 25 mmol/L (22-29) 05/11/23 07:35 Anion Gap 12 (12-20) 05/11/23 07:35 BUN 15 mg/dL (9-16) 05/11/23 07:35 Creatinine 1.38 mg/dL (0.5-1.4) 05/11/23 07:35 Estim Creat Clear Calc 51.6 05/11/23 07:35 Estimated GFR 51 05/11/23 07:35 Random Glucose 117 mg/dL (60-115) H 05/11/23 07:35 Calcium 8.5 mg/dL (8.4-10.2) 05/11/23 07:35 Magnesium 1.8 mg/dL (1.6-2.6) 05/07/23 17:09 Total Bilirubin 1.7 mg/dL (0.0-1.0) H 05/08/23 06:16 Direct Bilirubin 0.7 mg/dL (0.0-0.5) H 05/07/23 17:09 AST 37 U/L (5-37) 05/08/23 06:16 ALT 37 U/L (0-40) 05/08/23 06:16 Alkaline Phosphatase 92 U/L (39-117) 05/08/23 06:16 Lactate Dehydrogenase 496 U/L (118-273) H 05/10/23 05:12 Lactate Dehydrogenase Cancelled 05/10/23 05:12 Troponin I High Sens 6.0 ng/L (<3.5-35.0) 05/07/23 17:09 Total Protein 7.0 g/dL (6.5-8.0) 05/08/23 06:16 Albumin 3.8 g/dL (3.5-5.0) 05/08/23 06:16 Lipase 12 U/L (8-78) 05/07/23 17:09 Hold Yellow Top See Note 05/12/23 06:22 Urine Color Dark Yellow 05/07/23 19:50 Urine Appearance Clear 05/07/23 19:50 Urine pH 6.0 (5.0-9.0) 05/07/23 19:50 Ur Specific [place] >= 1.030 (1.005-1.025) H 05/07/23 19:50 Urine Protein 30 (1+) mg/dL (Neg-Trace) H 05/07/23 19:50 Urine Glucose (UA) Negative mg/dL (Negative) 05/07/23 19:50 Urine Ketones Negative mg/dL (Negative) 05/07/23 19:50 Urine Blood Negative (Negative) 05/07/23 19:50 Urine Nitrite Negative (Negative) 05/07/23 19:50 Ur Leukocyte Esterase Negative (Negative) 05/07/23 19:50 Urine RBC 3-5 /HPF (0-2) H 05/07/23 19:50 Urine WBC 0-5 /HPF (0-5) 05/07/23 19:50 Ur Squamous Epith Cells 0-2 /HPF (0-2) 05/07/23 19:50 Urine Bacteria None Seen (None Seen) 05/07/23 19:50 Hyaline Casts 0-2 /LPF (0-2) 05/07/23 19:50 - Imaging Radiologist's impression: ITS Impressions Abdomen/Pelvis CT 05/07/23 19:31 IMPRESSION: A large wedge-shaped perfusion defect is seen of the upper pole and interpolar aspect of the left kidney. There is adjacent perinephric stranding. No obstructive uropathy or calculus is noted. The imaging findings are most consistent with focal pyelonephritis or a focal renal infarction. Further differential considerations including drug-induced interstitial nephritis and renal lymphoma are considered unlikely. Recommend clinical correlation, including correlation with the patient's most recent urinalysis. Fleischner guidelines were followed. Chest X-Ray 05/08/23 00:25 IMPRESSION: No active cardiopulmonary disease. Abdomen/Pelvis CT 05/09/23 11:46 IMPRESSION: No new abnormalities. Evaluation of renal infarct is limited without intravenous contrast. There is mild perinephric stranding seen on the left. Fleischner guidelines were followed. Assessment and Plan Patient Active problem list reviewed?: Yes (1) Infarction of kidney Status: Acute Assessment and plan: We recommend continuying the warfarin with the INR between 2.5 and 3.5. He should be on aspirin 81 mg daily and obsere for bleeding. The echocardiogram is noted. 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 - Time Spent With Patient Time Spent with Patient (in minutes): 15
--- NOTE | 2023-05-12 13:22 | PM.PNNEP ---
Subjective Subjective Date of Service: 05/12/23 Interval history: no events Physical Exam Vital Signs: Vital Signs: Last Vital Signs Temp 97.5 F 05/12/23 07:24 Pulse 73 05/12/23 07:24 Resp 16 05/12/23 07:24 BP 127/82 05/12/23 07:24 Pulse Ox 97 05/12/23 07:24 O2 Del Method Room Air 05/12/23 07:24 BMI result Body Mass Index 27.8 Const: Other: Constitutional : Awake, interactive, not in distress Neck : Normal inspection, Supple Cardiovascular : RRR, no JVP, metalic click, no lower extremity edema Respiratory : good bilateral air entry, no crackles, wheezes or rhonchi Gastrointestinal: soft, lax, Normal bowel sounds, Non tender Skin : Warm, Dry Neurological : Alert & oriented x3, No focal deficit Objective Data Labs 05/09/23 06:28 05/11/23 07:35 Labs: Laboratory Results - last 24 hr 05/12/23 05/12/23 06:22 08:42 Hold Purple Top SEE NOTE PT 23.3 H D INR 1.9 H Hold Blue Top SEE NOTE Hold Yellow Top See Note Microbiology Microbiology Results: Microbiology 05/08/23 13:10 Blood - Venous Blood Culture - Preliminary No growth after 48 hours. 05/08/23 17:37 Urine clean catch - Urine da silva top Urine Culture - Final 05/08/23 13:04 Blood - Venous Blood Culture - Final Procedures Date of Service Date of Service: 05/12/23 Assessment & Plan Assessment and plan (1) Infarction of kidney: Status: Acute (2) Status post mechanical aortic valve replacement: Status: Acute (3) Anticoagulation management encounter: Status: Acute Plan THIS IS A 73-YEAR-OLD GENTLEMAN WITH MECHANICAL HEART VALVE, MAINTAINED ON COUMADIN, PRESENTS TO THE HOSPITAL WITH ABDOMINAL PAIN, SUDDEN ONSET, AND A CAT SCAN WHICH SHOWS WEDGE-SHAPED PERFUSION DEFECT IN THE LEFT KIDNEY CONSISTENT WITH A RENAL INFARCT. Problem #1: Renal infarct. - This is most likely an embolic event despite him being on the anticoagulation. Alternatively, it could be a defect in the renal vasculature with a dissection causing renal infarct. It is unlikely to be pyelonephritis given he has absence of urinary symptoms and there is no evidence of infection based on the UA and lack of fever as well. - All in all with anticoagulation renal perfusion appears to be restored as evidenced by improving Cr. - Will establish f/u with [facility] upon discharge. Problem#2: Acute kidney injury. Creatinine did bump, but now it has already improved with IV fluids. - OK to d/c IVF support RENAL WILL SIGN OFF PLEASE CALL IF ANY QUESTIONS Time Spent With Patient Time: Total time managing care of this patient today ____ minutes. Progress Note: Quality Stroke Does the patient have a stroke diagnosis?: No
[2023-05-12 15:42] VITALS: PULSE 72; RESP 20; TEMP 36.4; O2SAT 95
[2023-05-12 17:19] LABS: Homocysteine 15.6 umol/L (<11.4)
[2023-05-12 19:45] VITALS: BP 117/85; PULSE 66; RESP 20; TEMP 36.1; O2SAT 97
[2023-05-13 03:36] VITALS: BP 125/76; PULSE 54; RESP 18; TEMP 36.1; O2SAT 97
[2023-05-13 08:00] VITALS: BP 137/83; PULSE 70; RESP 18; TEMP 37.1; O2SAT 100
--- NOTE | 2023-05-13 14:00 | PM.GICN ---
History of Present Illness Data of Consult Service Date: 05/13/23 Requesting physician: Aron Peralta Primary Care Provider: Unknown Physician HPI Reason for consult: Abd pain This is a 73y.o M with PMH of mechanical AV who is currently admitted to the hospital for embolic L kidney infarct in the setting of presumed subtherapuetic INR. Gastroenterology has been consulted for evaluation of abd pain. Patient was seen at bedside. Reports left lower quadrant abdominal pain associated with nausea and chills that started a few days before presentation to the emergency room. Pain was sharp, radiating to the flank. No changes in urination or bowel movements reported by the patient. Although does state that since coming to the hospital, he has developed constipation. On initial evaluation, he was noted to have a large Left upper pole which defect suspicious for embolic thrombosis. As reported above, patient has history of mechanical aortic valve, and his initial INR was noted to be 2.5. Vascular surgery has seen him, and no indication for stent placement as of now. He is also undergoing hypercoagulable workup. Kidney function improving since resumption of therapeutic anticoagulation. Patient also concurrently reports improvement in his abdominal pain for the past couple of days. Has been tolerating full liquids, able to get up out of bed. Review of Systems Review of Systems: Yes all other systems are reviewed and are negative PMF Past Medical History Medical History (Updated 05/13/23 @ 16:58 by Hoda Ramirez MD) BPV (benign positional vertigo) BPH (benign prostatic hyperplasia) HLD (hyperlipidemia) Surgical History Surgical History (Updated 05/11/23 @ 14:28 by Tod Clemens MD) Mechanical heart valve present Social History Social History Household Members: None Housing: Apartment Do you presently have visiting nurse or other home services: No Patient Tobacco Use Status: Never used Tobacco Smoked in Last 30 Days: No Use of substances other than those prescribed or required for medical reasons: No Currently Displaying Signs/Symptoms of Drug Intoxication Withdrawal: No Have you been hit, kicked, punched, or otherwise hurt by someone within the past year? If so, by whom?: No Do you feel safe in your current relationship?: No Current Relationship Is there a partner from a previous relationship who is making you feel unsafe now?: No Are you made to feel afraid or neglected: No [employer] Healthcare Practices: [facility] Advance Directives: No Advance Directives Information Provided: No Do you have thoughts of harming others: None Do you have a plan to hurt others: No Plan Recently lost weight without trying: Unsure How much weight loss: Unsure Eating poorly because of decreased appetite: Yes Nutrition screen score: 5 Nutrition Risks: Poor intake 0-25% >4 days Poor oral hygiene: No service: No Meds Allergies Allergy/AdvReac Type Severity Reaction Status Date / Time No Known Allergies Allergy Verified 05/07/23 16:30 Active Medications: Current Medications Acetaminophen (Acetaminophen 325 Mg Tablet) 650 mg PO Q6H PRN PRN Reason: Pain, Mild (Pain Scale 1-3) Last Admin: 05/12/23 15:50 Dose: 650 mg Al Hydroxide/Mg Hydroxide (Magnesium Hydrox/Alum Hydrox 30 Ml Oral.Susp) 30 ml PO Q4H PRN PRN Reason: Heartburn/Nausea Last Admin: 05/10/23 02:33 Dose: 30 ml Ascorbic Acid (Ascorbic Acid 500 Mg Tablet) 500 mg PO DAILY [facility] Last Admin: 05/13/23 08:02 Dose: 500 mg Aspirin (Aspirin Enteric Coated 81 Mg Tablet.Dr) 81 mg PO DAILY [facility] [place] Last Admin: 05/13/23 08:02 Dose: 81 mg Atorvastatin Calcium (Atorvastatin Calcium 40 Mg Tablet) 40 mg PO BEDTIME [facility] Last Admin: 05/12/23 20:42 Dose: 40 mg Dicyclomine HCl (Dicyclomine Hcl 10 Mg Capsule) 10 mg PO QIDACHS [facility] [place] Last Admin: 05/13/23 11:53 Dose: 10 mg Docusate Sodium (Docusate Sodium 100 Mg Capsule) 200 mg PO BEDTIME [facility] [place] Last Admin: 05/12/23 20:43 Dose: 200 mg Finasteride (Finasteride 5 Mg Tablet) 5 mg PO DAILY [facility] [place] Last Admin: 05/13/23 08:02 Dose: 5 mg Meclizine HCl (Meclizine Hcl 25 Mg Tablet) 25 mg PO BID [facility] Last Admin: 05/13/23 08:01 Dose: 25 mg Melatonin (Melatonin 3 Mg Tablet) 6 mg PO BEDTIME PRN PRN Reason: Insomnia Last Admin: 05/08/23 20:12 Dose: 6 mg Metoprolol Tartrate (Metoprolol Tartrate 25 Mg Tablet) 25 mg PO BID [facility]; Protocol Last Admin: 05/13/23 08:01 Dose: 25 mg Morphine Sulfate (Morphine Sulfate 2 Mg/Ml Cartridge) 2 mg IVPUSH Q4H PRN; Protocol PRN Reason: Pain, Severe (Pain Scale 7-10) Last Admin: 05/13/23 09:46 Dose: 2 mg Multivitamins/Vitamin C (Multivitamin Tablet) 1 tab PO DAILY [facility] Last Admin: 05/13/23 08:00 Dose: 1 tab Nifedipine (Nifedipine Er 30 Mg Tab.Er.24) 30 mg PO DAILY [facility]; Protocol Last Admin: 05/13/23 08:02 Dose: 30 mg Omeprazole (Omeprazole 20 Mg Capsule.Dr) 20 mg PO BID@0630,1630 [facility] [place] Last Admin: 05/13/23 05:53 Dose: 20 mg Ondansetron HCl (Ondansetron Hcl 4 Mg/2 Ml Vial) 4 mg IVPUSH Q8H PRN PRN Reason: Nausea and Vomiting Last Admin: 05/13/23 11:53 Dose: 4 mg Polyethylene Glycol (Polyethylene Glycol 3350 17 Gm Powd.Pack) 17 gm PO BID [facility] Last Admin: 05/13/23 08:02 Dose: 17 gm Simethicone (Simethicone 80 Mg Tab.Chew) 80 mg PO QIDWMHS [facility] [place] Last Admin: 05/13/23 11:53 Dose: 80 mg Sodium Chloride (0.9 % Sodium Chloride Flush 3 Ml Syringe) 3 ml IVFLUSH QSHIFT [facility] Last Admin: 05/13/23 08:10 Dose: 3 ml Tamsulosin HCl (Tamsulosin Hcl 0.4 Mg Capsule) 0.4 mg PO BEDTIME [facility] Last Admin: 05/12/23 20:43 Dose: 0.4 mg Vitamin D (Cholecalciferol (Vitamin D3) 25 Mcg Tablet) 25 mcg PO DAILY [facility] [place] Last Admin: 05/13/23 08:02 Dose: 25 mcg Warfarin Sodium (Warfarin Sodium 2 Mg Tablet) 2 mg PO MoWeFr@0900 [facility] [place] Last Admin: 05/12/23 08:56 Dose: 2 mg Warfarin Sodium (Warfarin Sodium 4 Mg Tablet) 4 mg PO SuTuThSa@0900 [facility] [place] Last Admin: 05/13/23 08:01 Dose: 4 mg Home Medications Medication Instructions Recorded Confirmed Last Taken Type ascorbic acid (vitamin C) 500 mg 500 mg PO DAILY 05/07/23 05/07/23 Unknown History tablet atorvastatin 40 mg tablet 40 mg PO BEDTIME 05/07/23 05/07/23 Unknown History cholecalciferol (vitamin D3) 25 25 mcg PO DAILY 05/07/23 05/07/23 Unknown History mcg (1,000 unit) tablet docusate sodium 100 mg capsule 200 mg PO BEDTIME 05/07/23 05/07/23 Unknown History esomeprazole magnesium 40 mg 40 mg PO QAM 05/07/23 05/07/23 Unknown History capsule,delayed release finasteride 5 mg tablet 5 mg PO DAILY 05/07/23 05/07/23 Unknown History meclizine 25 mg tablet 25 mg PO BID 05/07/23 05/07/23 Unknown History multivitamin 1 tab PO DAILY 05/07/23 05/07/23 Unknown History tamsulosin 0.4 mg capsule 0.4 mg PO BEDTIME 05/07/23 05/07/23 Unknown History warfarin 2 mg tablet 2 mg PO MOWEFR 05/07/23 05/07/23 Unknown History warfarin 4 mg tablet 4 mg PO SUTUTHSA 05/07/23 05/07/23 Unknown History Physical Exam Vital Signs: Vital Signs: Last Vital Signs Temp 98.8 F 05/13/23 08:00 Pulse 70 05/13/23 08:00 Resp 18 05/13/23 08:00 BP 137/83 05/13/23 08:00 Pulse Ox 100 05/13/23 08:00 O2 Del Method Room Air 05/13/23 08:00 BMI result Body Mass Index 27.8 Gen appear: NAD HEENT: nonicteric, no cervical lymphadenopathy Chest: CTA CVS: Regular S1/S2 Abd: soft, mild tenderness in LLQ, nondistended no guarding Neuro: A/Ox3, noted to move all extremities spontaneously Psych: interacting appropriately Results Labs 05/13/23 06:02 05/11/23 07:35 Labs: Short CBC 05/13/23 Range/Units 06:02 WBC 7.3 (4.8-10.8) X10*3/uL Hgb 14.5 (14.0-18.0) g/dl Hct 44.1 (42.0-52.0) % Plt Count 159 L D (160-400) X10*3/uL Microbiology Microbiology Results: Microbiology 05/08/23 13:10 Blood - Venous Blood Culture - Preliminary No growth after 48 hours. 05/08/23 17:37 Urine clean catch - Urine da silva top Urine Culture - Final 05/08/23 13:04 Blood - Venous Blood Culture - Final Assessment and Plan (1) Infarction of kidney: Status: Acute (2) Left lower quadrant abdominal pain: Status: Acute (3) Constipation: Status: Acute Plan Pain with N/V most likely sequela of his L kidney infarct. Anticipate this to improve gradually as the renal perfusion is optimized. Pt already reports much improvement from a week ago. No evidence of mesenteric stenosis based on contrasted CT from 05/07. Although reports constipation eval today, doubt this is contributing to pain as would have then expected to pain to get worse with progression of constipation. In any case, would recommend scheduled bowel regimen with senna and miralax. Thank you for the consultation. Please do not hesitate to reach out for any questions or concerns. Time Spent With Patient Time: Total time managing care of this patient today ____ minutes. Procedures Date of Service Date of Service: 05/13/23
--- NOTE | 2023-05-13 15:37 | HO.PM.IMPN ---
Subjective Subjective Date of Service: 05/13/23 Interval History: Feels better improved abdominal pain, and he is able to tolerate food INR improved to 2.2 having significant abdominal pain no fever or chills no hematuria Review of Systems Review of Systems: Yes all other systems are reviewed and are negative Physical Exam Vital Signs: Vital Signs: Last Vital Signs Temp 98.8 F 05/13/23 08:00 Pulse 70 05/13/23 08:00 Resp 18 05/13/23 08:00 BP 137/83 05/13/23 08:00 Pulse Ox 100 05/13/23 08:00 O2 Del Method Room Air 05/13/23 08:00 BMI result Body Mass Index 27.8 Const: Other: Constitutional : Awake, interactive, not in distress Neck : Normal inspection, Supple Cardiovascular : RRR, no JVP, metalic click, no lower extremity edema Respiratory : good bilateral air entry, no crackles, wheezes or rhonchi Gastrointestinal: soft, lax, Normal bowel sounds, less abdominal distention, mild generalized tenderness with no surgical signs Skin : Warm, Dry Neurological : Alert & oriented x3, No focal deficit Objective Data Active Medications Acetaminophen (Acetaminophen 325 Mg Tablet) 650 mg PO Q6H PRN PRN Reason: Pain, Mild (Pain Scale 1-3) Last Admin: 05/12/23 15:50 Dose: 650 mg Documented By: ZABRINA Al Hydroxide/Mg Hydroxide (Magnesium Hydrox/Alum Hydrox 30 Ml Oral.Susp) 30 ml PO Q4H PRN PRN Reason: Heartburn/Nausea Last Admin: 05/10/23 02:33 Dose: 30 ml Documented By: KIM Ascorbic Acid (Ascorbic Acid 500 Mg Tablet) 500 mg PO DAILY [facility] Last Admin: 05/13/23 08:02 Dose: 500 mg Documented By: YASMANY Aspirin (Aspirin Enteric Coated 81 Mg Tablet.) 81 mg PO DAILY [facility] Last Admin: 05/13/23 08:02 Dose: 81 mg Documented By: YASMANY Atorvastatin Calcium (Atorvastatin Calcium 40 Mg Tablet) 40 mg PO BEDTIME [facility] Last Admin: 05/12/23 20:42 Dose: 40 mg Documented By: ROSEY Dicyclomine HCl (Dicyclomine Hcl 10 Mg Capsule) 10 mg PO QIDACHS [facility] Last Admin: 05/13/23 11:53 Dose: 10 mg Documented By: YASMANY Docusate Sodium (Docusate Sodium 100 Mg Capsule) 200 mg PO BEDTIME [facility] Last Admin: 05/12/23 20:43 Dose: 200 mg Documented By: ROSEY Finasteride (Finasteride 5 Mg Tablet) 5 mg PO DAILY [facility] Last Admin: 05/13/23 08:02 Dose: 5 mg Documented By: YASMANY Meclizine HCl (Meclizine Hcl 25 Mg Tablet) 25 mg PO BID [facility] Last Admin: 05/13/23 08:01 Dose: 25 mg Documented By: YASMANY Melatonin (Melatonin 3 Mg Tablet) 6 mg PO BEDTIME PRN PRN Reason: Insomnia Last Admin: 05/08/23 20:12 Dose: 6 mg Documented By: GAGAN Metoprolol Tartrate (Metoprolol Tartrate 25 Mg Tablet) 25 mg PO BID [facility]; Protocol Last Admin: 05/13/23 08:01 Dose: 25 mg Documented By: YASMANY Morphine Sulfate (Morphine Sulfate 2 Mg/Ml Cartridge) 2 mg IVPUSH Q4H PRN; Protocol PRN Reason: Pain, Severe (Pain Scale 7-10) Last Admin: 05/13/23 09:46 Dose: 2 mg Documented By: OMAR Multivitamins/Vitamin C (Multivitamin Tablet) 1 tab PO DAILY [facility] Last Admin: 05/13/23 08:00 Dose: 1 tab Documented By: YASMANY Nifedipine (Nifedipine Er 30 Mg Tab.Er.24) 30 mg PO DAILY [facility]; Protocol Last Admin: 05/13/23 08:02 Dose: 30 mg Documented By: YASMANY Omeprazole (Omeprazole 20 Mg Capsule.) 20 mg PO BID@0630,1630 [facility] Last Admin: 05/13/23 05:53 Dose: 20 mg Documented By: ROSEY Ondansetron HCl (Ondansetron Hcl 4 Mg/2 Ml Vial) 4 mg IVPUSH Q8H PRN PRN Reason: Nausea and Vomiting Last Admin: 05/13/23 11:53 Dose: 4 mg Documented By: YASMANY Polyethylene Glycol (Polyethylene Glycol 3350 17 Gm Powd.Pack) 17 gm PO BID [facility] Last Admin: 05/13/23 08:02 Dose: 17 gm Documented By: YASMANY Simethicone (Simethicone 80 Mg Tab.Chew) 80 mg PO QIDWMHS [facility] Last Admin: 05/13/23 11:53 Dose: 80 mg Documented By: YASMANY Sodium Chloride (0.9 % Sodium Chloride Flush 3 Ml Syringe) 3 ml IVFLUSH QSHIFT [facility] Last Admin: 05/13/23 08:10 Dose: 3 ml Documented By: YASMANY Tamsulosin HCl (Tamsulosin Hcl 0.4 Mg Capsule) 0.4 mg PO BEDTIME [facility] Last Admin: 05/12/23 20:43 Dose: 0.4 mg Documented By: ROSEY Vitamin D (Cholecalciferol (Vitamin D3) 25 Mcg Tablet) 25 mcg PO DAILY [facility] Last Admin: 05/13/23 08:02 Dose: 25 mcg Documented By: YASMANY Warfarin Sodium (Warfarin Sodium 2 Mg Tablet) 2 mg PO MoWeFr@0900 [facility] Last Admin: 05/12/23 08:56 Dose: 2 mg Documented By: ZABRINA Warfarin Sodium (Warfarin Sodium 4 Mg Tablet) 4 mg PO SuTuThSa@0900 [facility] Last Admin: 05/13/23 08:01 Dose: 4 mg Documented By: YASMANY Labs 05/13/23 06:02 05/11/23 07:35 Labs: Laboratory Results - last 24 hr 05/08/23 05/13/23 10:18 06:02 MCV 93.8 MCH 30.9 MCHC 32.9 RDW 12.7 Plt Count 159 L D MPV Not Reportable Absolute Nucleated RBC 0.000 Nucleated RBC % (auto) 0.0 PT 27.0 H INR 2.2 H Homocysteine 15.6 H Microbiology Microbiology Results: Microbiology 05/08/23 13:10 Blood Culture - Final Blood - Venous No growth after 5 days. Assessment and Plan (1) Acute kidney injury superimposed on CKD: Status: Acute (2) Abdominal pain: Status: Acute (3) Nausea: Status: Acute (4) Status post mechanical aortic valve replacement: Status: Acute Plan 73/ male with with metalic heart valve here with abdominal pain and found to have left renal infarct Abdominal pain Decrease PO intake Repeated CT scan negative for any new abnormalities Check US duplex abd Get GI eval Symptomatic meds; Simethicone , Bentyl Renal infarct in setting of Aortic mechanical valve INR of 2.2 Goal of INR 2-3 Continue home dose Warfarin Nephro consult , hypercoag work up. Hematology eval Cardiology consult, add Aspirin, ECHO showing clean Valve w no thrombus. Hypercoagulable workup w Hematology as OP BPH continue finasteride, Flomax Leukocytosis No evidence of infection, pending cultures dc Empirical Abx of Ceftriaxone Likely reactive from infarct MARCIO on CKD 3, resolved, DC IVF Follow BMP DVT PPx coumadin will need overnight hospital stay for management of Low INR and acute renal infarct and abdominal pain pending therapeutic INR Time Spent With Patient Time: Total time managing care of this patient today ____ minutes. Quality Stroke Does the patient have a stroke diagnosis?: No VTE Prior VTE?: No VTE Risk Level:: Medical - moderate - high VTE Device Contraindication: Treatment Not Indicated VTE Drug Contraindication: N/A - Med Ordered
[2023-05-13 15:59] VITALS: BP 122/92; PULSE 58; RESP 18; TEMP 36.5; O2SAT 97
[2023-05-13 20:00] VITALS: BP 143/68; PULSE 71; RESP 20; TEMP 36.3; O2SAT 96
[2023-05-14 03:12] VITALS: BP 119/76; PULSE 68; RESP 18; TEMP 36.6; O2SAT 96
[2023-05-14 07:18] LABS: Alanine Aminotransferase 49 U/L (0-40); Albumin Level 3.5 g/dL (3.5-5.0); Alkaline Phosphatase 145 U/L (39-117); Anion Gap 14 (12-20); Aspartate Amino Transferase 26 U/L (5-37); Bilirubin Direct 0.3 mg/dL (0.0-0.5); Bilirubin Total 0.8 mg/dL (0.0-1.0); Blood Urea Nitrogen 12 mg/dL (9-16); Calcium 9.4 mg/dL (8.4-10.2); Carbon Dioxide 25 mmol/L (22-29); Chloride 103 mmol/L (96-108); Creatinine Clr Calc Pharmacy 47.8; Estimated Glomerular Filt Rate 46; Glucose Random 136 mg/dL (60-115); Potassium 4.4 mmol/L (3.3-5.1); Sodium 138 mmol/L (135-145); Total Protein 6.8 g/dL (6.5-8.0)
[2023-05-14 07:54] VITALS: BP 111/79; PULSE 69; RESP 17; TEMP 36.6; O2SAT 94
[2023-05-14 10:33] LABS: Cardiolipin IgG Ab <2.0 GPL-U/mL; Cardiolipin IgM Ab <2.0 MPL-U/mL
--- NOTE | 2023-05-14 11:35 | PM.DS ---
DS: Providers Provider Date of Service: 05/14/23 Date of admission: 05/07/23 21:50 Primary care physician: ALLYSON Morrison Consults: 05/07/23 21:49 Consult to Nephrology Routine Consulting Provider: Ryan Hood Reason for consultation: MARCIO, renal infarct Has provider been notified: No 05/08/23 07:16 Consult to Cardiology Routine Consulting Provider: [facility] Reason for consultation: Hx mechanical valve, renal infarct, anticoagulation advice 05/08/23 11:03 Consult to Vascular Surgery Routine Consulting Provider: [facility] Reason for consultation: renal infarct for eval and rec. 05/09/23 15:47 Consult to Hematology / Oncology Routine Consulting Provider: Jared Rodriguez Reason for consultation: Acute kidney infarct 05/13/23 09:07 Consult to Gastroenterology Routine Consulting Provider: Hoda Ramirez Reason for consultation: Recurrent abdominal pain DS: Diagnosis Discharge Diagnosis (1) Infarction of kidney: Status: Acute (2) Left lower quadrant abdominal pain: Status: Acute (3) Constipation: Status: Acute (4) Acute kidney injury superimposed on CKD: Status: Acute (5) Status post mechanical aortic valve replacement: Status: Acute (6) Anticoagulation management encounter: Status: Acute (7) Abdominal pain: Status: Acute (8) Nausea: Status: Acute (9) Hypertension: Status: Acute DS: Summary Hospital Course Hospital Course: Admission note HPI A 73-year-old male with HLD, BPH, on Coumadin for metallic heart valve (not sure if aortic or mitral position) INR is 2.5. He is a predominantly [place]-speaking patient; her daughter, who speaks, preferred to translate instead of an gas controller. The patient was brought to the ED for evaluation of 3 days of abdominal pain in the lower abdomen of various intensity, constant, associated with nausea, but no vomiting, no fever, and normal bowel function. Work up: WBC 18 K,? Cr 1.6 ( last record at [facility] in [address] was [address]). [address] of the abdomen and pelvis show: A large wedge-shaped perfusion defect in the upper pole and interpolar aspect of the left kidney. There is adjacent perinephric stranding. No obstructive uropathy or calculus is noted. The imaging findings are most consistent with focal pyelonephritis or a focal renal infarction. UA: increase specific gravity, high protein, normal nitrite, and leukocytes) has no dysuria.? Hospital course Admitted primarly for an evidence of renal infarct in setting of Aortic mechanical valve as seen on CT scan of abdomen with INR of 2.4 on the day of discharge. Goal of INR 2-3. Seen by cardiology who recommended adding Aspirin. Cardiology consult, add Aspirin, ECHO showing clean Valve w no thrombus. Evaluated for Abdominal pain and nausea. Repeated CT scan negative for any new abnormalities. US duplex abd showed possible aortic stenosis evaluated by dr Maxwell from vascular surgery who recommended outpatient follow up. Seen by GI team who recommended Symptomatic meds; Bentyl as no active GI issues noted on images. He was able to tolerate diet well with no reported pain and nausea and will be discharged home on PRN Bentyl. Follow with dr Maxwell as outpatient for further work up Continue Warfarin home dose with goal of INR 2-3 Start Baby aspirin Start Nifedipine for high blood pressure Follow with PCP as outpatient to follow on hypercoagulable workup Time Spent with Patient Time attestation: Total time managing care of this patient today ____ minutes. Discharge coordination time: Greater than 30 minutes Quality: Safe Use of Opioids Does Pt have an Active Cancer Diagnosis on the Problem List?: No Quality: Stroke Does the patient have a stroke diagnosis?: No Physical Exam Vital Signs: Vital Signs: Last Vital Signs Temp 97.8 F 05/14/23 07:54 Pulse 69 05/14/23 07:54 Resp 17 05/14/23 07:54 BP 111/79 05/14/23 07:54 Pulse Ox 94 05/14/23 07:54 O2 Del Method Room Air 05/14/23 07:54 BMI result Body Mass Index 27.8 Const: Other: Constitutional : Awake, interactive, not in distress Neck : Normal inspection, Supple Cardiovascular : RRR, no JVP, metalic click, no lower extremity edema Respiratory : good bilateral air entry, no crackles, wheezes or rhonchi Gastrointestinal: soft, lax, Normal bowel sounds, no significant abdominal distention, no tenderness or surgical signs Skin : Warm, Dry Neurological : Alert & oriented x3, No focal deficit DS: Data Data Completed and Pending Labs on day of discharge: Laboratory Results - last 24 hr 05/08/23 05/14/23 10:18 06:17 WBC 10.3 RBC 4.76 Hgb 14.8 Hct 43.6 MCV 91.6 MCH 31.1 MCHC 33.9 RDW 12.6 Plt Count 185 MPV 13.0 H Absolute Nucleated RBC 0.000 Nucleated RBC % (auto) 0.0 PT 29.0 H INR 2.4 H Sodium 138 Potassium 4.4 Chloride 103 Carbon Dioxide 25 Anion Gap 14 BUN 12 Creatinine 1.49 H Estim Creat Clear Calc 47.8 Estimated GFR 46 Random Glucose 136 H Calcium 9.4 D Total Bilirubin 0.8 Direct Bilirubin 0.3 AST 26 ALT 49 H Alkaline Phosphatase 145 H Total Protein 6.8 Albumin 3.5 Anti-Cardiolipin IgG Ab <2.0 Anti-Cardiolipin IgM Ab <2.0 Imaging Chest x-ray: Radiologist's impression: ITS Impressions Abdomen/Pelvis CT 05/07/23 19:31 IMPRESSION: A large wedge-shaped perfusion defect is seen of the upper pole and interpolar aspect of the left kidney. There is adjacent perinephric stranding. No obstructive uropathy or calculus is noted. The imaging findings are most consistent with focal pyelonephritis or a focal renal infarction. Further differential considerations including drug-induced interstitial nephritis and renal lymphoma are considered unlikely. Recommend clinical correlation, including correlation with the patient's most recent urinalysis. Fleischner guidelines were followed. Chest X-Ray 05/08/23 00:25 IMPRESSION: No active cardiopulmonary disease. Abdomen/Pelvis CT 05/09/23 11:46 IMPRESSION: No new abnormalities. Evaluation of renal infarct is limited without intravenous contrast. There is mild perinephric stranding seen on the left. Fleischner guidelines were followed. Mesenteric US 05/13/23 19:01 IMPRESSION: Normal Doppler ultrasound of aorta, celiac, superior mesenteric and inferior mesenteric arteries. 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 The SMA is enlarged as well. LEONORA is normal caliber. Follow-up with a CTA of the abdominal aorta is recommended. Discharge Plan Discharge Anticipated Discharge Date/Time: 05/14/23 10:44 Patient Disposition: Home, Self-Care Discharge Diagnosis: Kidney infarct Referrals: Radha Ward PA [Primary Care Provider] - 1 Week Discharge Medications: New aspirin 81 mg Tablet,Delayed Release (Dr/Ec) 81 mg PO DAILY Qty: 30 0RF dicyclomine 10 mg Capsule 10 mg PO QIDACHS PRN (Reason: Abdominal Discomfort) Qty: 30 0RF nifedipine 30 mg Tablet Extended Release 24hr 30 mg PO DAILY Qty: 30 0RF Protocol: Hold for SBP< HOLD for SBP < : 90 Continued multivitamin Tablet 1 tab PO DAILY atorvastatin 40 mg Tablet 40 mg PO BEDTIME warfarin 4 mg tablet 4 mg PO SUTUTHSA ascorbic acid (vitamin C) 500 mg Tablet 500 mg PO DAILY tamsulosin 0.4 mg capsule 0.4 mg PO BEDTIME meclizine 25 mg tablet 25 mg PO BID esomeprazole magnesium 40 mg capsule,delayed release(DR/EC) 40 mg PO QAM warfarin 2 mg tablet 2 mg PO MOWEFR docusate sodium 100 mg capsule 200 mg PO BEDTIME finasteride 5 mg tablet 5 mg PO DAILY cholecalciferol (vitamin D3) 25 mcg (1,000 unit) Tablet 25 mcg PO DAILY Discharge Orders: Discharge Order (Routine); Ordered 05/14/23 Ordered By: Aron Peralta Diet: Advance to usual diet Activity on Discharge: As tolerated Stand Alone Forms: Patient Portal Discharge page Care Plan Goals: Read below Health Concerns: Read below Plan of Treatment: Read below Assessment: You were admitted for evaluation of abdominal pain. found to have a clot to your kidney. evaluated by kidney, GI, catheter finisher and inspector and beauty operator who recommended to continue Warfarin and add Aspirin to it. Follow with dr Maxwell as outpatient for further work up Continue Warfarin home dose with goal of INR 2-3 Start Baby aspirin Start Nifedipine for high blood pressure Follow with kidney specialist as outpatient.
--- NOTE | 2023-05-14 11:45 | MHC.CM.PN ---
DP: PT HAS BEEN MEDICALLY CLEARED FOR DC HOME, NO SERVICES. PT HAS OWN RIDE HOME
--- NOTE | 2023-05-14 11:55 | HO.VASCPN ---
Subjective Subjective Date of Service: 05/14/23 Patient reports: no new complaints and pain is less Interval history: Very pleasant 73-year-old patient for follow-up. Reports that the abdominal pain has significantly improved. Tolerating a diet. Had mesenteric ultrasound and was curious about the findings. Other than that no other significant complaints. Physical Exam Vital Signs: Vital Signs: Last Vital Signs Temp 97.8 F 05/14/23 07:54 Pulse 69 05/14/23 07:54 Resp 17 05/14/23 07:54 BP 111/79 05/14/23 07:54 Pulse Ox 94 05/14/23 07:54 O2 Del Method Room Air 05/14/23 07:54 BMI result Body Mass Index 27.8 Const: General: cooperative, healthy appearing and comfortable Orientation/consciousness: oriented to person, oriented to place and oriented to time HEENT: Head: Yes normal to inspection Neck: Neck: Yes normal visual inspection Carotids: no bruits Chest: Chest palpation & inspection: normal inspection of the chest Resp: Effort & Inspection: normal respiratory effort and able to speak in complete sentences Auscultation: clear to auscultation bilaterally, no crackles, no rales, no rhonchi and no wheezes Cardio: Rate: regular rate Rhythm: regular rhythm Heart sounds: S1 normal heart sound present and S2 normal heart sound present Bruits: no carotid bruits Peripheral pulses: Peripheral pulses 2+ throughout GI: Inspection: Yes normal to inspection Skin: Wounds: no wounds Hair: normal Neuro: General: oriented to person, oriented to place and oriented to time Cranial nerves: Yes CN's II-XII intact bilaterally and Yes Normal hearing present Cognition (Neuro): normal cognition Motor exam (neuro): 5/5 motor strength present throughout Extrem: Other: venous exam: No significant superficial varicosities or spider telangiectasias, minimal edema General: No clubbing, No cyanosis and No edema Psych: Appearance: grossly normal Mental Status: mental status grossly normal Speech and movement: Normal speech and movement present Progress Note: A&P Assessment and plan (1) Abdominal pain: Status: Acute Assessment and Plan: In short abdominal pain appears to have improved. I do believe this may be more from a questionable renal infarct. At the current time would continue medical management. I did review the mesenteric ultrasound and there was a question of a dilatation. At the current time it does appear to be stable and on prior CT scan appropriate flow through 3 mesenteric accesses. He is stable from my perspective for discharge. He can follow up with me as an outpatient. Thank you for allowing us to assist in his care Time Spent With Patient Time: Total time managing care of this patient today ____ minutes. Procedures Date of Service Date of Service: 05/14/23 Quality Stroke Does the patient have a stroke diagnosis?: No VTE Prior VTE?: No VTE Risk Level:: Medical - moderate - high VTE Device Contraindication: Treatment Not Indicated VTE Drug Contraindication: N/A - Med Ordered
== END 2023-05-14 14:19 | disposition home or self-care (01) | DRG 699 ==
LOC: HO.ED 20:48 → HO.EDOVER 22:03 → HO.S3 05-08 07:59
PROVIDERS: Physician Assistant; Admitting Provider Internal Medicine; Emergency Provider Emergency Medicine Emergency Medical Services; PCP Physician Assistant; Visit Provider Student in an Organized Health Care Education/Training Program
DX: N28.0 Ischemia and infarction of kidney (principal); N17.9 Acute kidney failure, unspecified; K59.00 Constipation, unspecified; N40.0 Benign prostatic hyperplasia without lower urinary tract symptoms; I12.9 Hypertensive chronic kidney disease with stage 1 through stage 4 chronic kidney disease, or unspecified chronic kidney disease; N18.30 Chronic kidney disease, stage 3 unspecified; Z95.2 Presence of prosthetic heart valve; Z79.01 Long term (current) use of anticoagulants; Z79.82 Long term (current) use of aspirin; Z79.899 Other long term (current) drug therapy
CPT/HCPCS: 36415; 71045; 74176; 74177; 80048; 80053; 80076; 81001; 83090; 83615; 83690; 83735; 84484; 85025; 85027; 85610; 85730; 86147; 87040; 87086; 93005; 93306; 93976; 99285; J0696; J1650; J2270; J2405; Q9957

== ENCOUNTER 2023-05-07 21:50 | Outpatient (BNV) | payer OTHER, SELFPAY | END 2023-05-08 07:00 | PROVIDERS: Admitting Provider Internal Medicine; Emergency Provider Emergency Medicine Emergency Medical Services; Visit Provider Internal Medicine | DX: I42.9 Cardiomyopathy, unspecified (principal) | CPT/HCPCS: 93306 ==

== ENCOUNTER → 2023-05-07 21:50 | Outpatient (BNV) | payer OTHER, SELFPAY | PROVIDERS: Admitting Provider Internal Medicine; Emergency Provider Emergency Medicine Emergency Medical Services; Visit Provider Student in an Organized Health Care Education/Training Program | DX: N28.0 Ischemia and infarction of kidney (principal); N17.9 Acute kidney failure, unspecified; I12.9 Hypertensive chronic kidney disease with stage 1 through stage 4 chronic kidney disease, or unspecified chronic kidney disease; N18.30 Chronic kidney disease, stage 3 unspecified; Z95.2 Presence of prosthetic heart valve; K59.00 Constipation, unspecified; R10.32 Left lower quadrant pain; Z51.81 Encounter for therapeutic drug level monitoring; Z79.01 Long term (current) use of anticoagulants; R10.9 Unspecified abdominal pain; R11.0 Nausea | CPT/HCPCS: 99223; 99232; 99239 ==

== ENCOUNTER → 2023-05-07 21:50 | Outpatient (BNV) | payer OTHER, SELFPAY | PROVIDERS: Admitting Provider Internal Medicine; Emergency Provider Emergency Medicine Emergency Medical Services; Visit Provider Internal Medicine | DX: N28.0 Ischemia and infarction of kidney (principal); Z95.2 Presence of prosthetic heart valve; Z51.81 Encounter for therapeutic drug level monitoring; Z79.01 Long term (current) use of anticoagulants | CPT/HCPCS: 99223; 99233 ==

== ENCOUNTER → 2023-05-07 21:50 | Outpatient (BNV) | payer OTHER, SELFPAY | PROVIDERS: Admitting Provider Internal Medicine; Emergency Provider Emergency Medicine Emergency Medical Services; PCP Physician Assistant; Visit Provider Internal Medicine | DX: N28.0 Ischemia and infarction of kidney (principal); R10.32 Left lower quadrant pain; K59.00 Constipation, unspecified | CPT/HCPCS: 99222 ==

== ENCOUNTER → 2023-05-07 21:50 | Outpatient (BNV) | payer OTHER, SELFPAY | PROVIDERS: Admitting Provider Internal Medicine; Emergency Provider Emergency Medicine Emergency Medical Services; Visit Provider Surgery Vascular Surgery | DX: R10.9 Unspecified abdominal pain (principal); Z95.2 Presence of prosthetic heart valve | CPT/HCPCS: 99222; 99232 ==

== ENCOUNTER 2023-06-24 14:14 | Outpatient (AMB) | payer OTHER, SELFPAY ==
--- NOTE | 2023-06-24 14:19 | MHC.OFFVIS ---
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 Accounting Lecturer Language: Supervisor Advice Name: Radha [id number] Accompanied by: Self / Same As Patient Allergies No Known Allergies Allergy (Verified 06/24/23 14:22) Medication List - Last Reconciled 06/24/23 by Jesus Vyas MD aspirin 81 mg PO DAILY atorvastatin 40 mg PO BEDTIME cholecalciferol (vitamin D3) 25 mcg PO DAILY dicyclomine 10 mg PO QIDACHS PRN docusate sodium 200 mg PO BEDTIME esomeprazole magnesium 40 mg PO QAM finasteride 5 mg PO DAILY meclizine 25 mg PO BID multivitamin 1 tab PO DAILY nifedipine ER 30 mg See Protocol PO DAILY tamsulosin 0.4 mg PO BEDTIME warfarin 4 mg PO SUTUTHSA warfarin 2 mg PO MOWEFR HPI HPI Comments History of Present Illness Details Ean is here for follow-up after recent hospitalization. Discussed with patient using bilingual interpreter. He used to go to [facility] but not seen him recently. Has a history of mechanical aortic valve replacement. On long-term warfarin. He was having abdominal pain and that led to hospitalization. 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 He underwent echocardiogram that did not show any evidence of valvular dysfunction. Of note, INR was actually therapeutic during the hospitalization. After couple of days of inpatient stay, he was discharged. Today, he states he is doing good. Per prior cardiology note, [place] aortic valve replacement 9097. That was done because of severe aortic stenosis. [facility] Medical History (Updated 06/24/23 @ 14:50 by Jesus Vyas MD) Hypertension BPV (benign positional vertigo) BPH (benign prostatic hyperplasia) HLD (hyperlipidemia) Surgical History (Updated 06/24/23 @ 14:39 by Jesus Vyas MD) Status post mechanical aortic valve replacement Mechanical heart valve present Family History (Updated 06/24/23 @ 14:24 by Vinita Ann) Mother Pacemaker Father No problems noted. Household Members: None Housing: Apartment Do you presently have visiting nurse or other home services: No Patient Tobacco Use Status: Never used Tobacco service: No Review of Systems Const Denies weakness ENT Denies dizziness Card Denies chest pain, Denies chest pain with activity, Denies syncope, Denies rapid heart rate, Denies pedal edema, Denies edema, Denies leg edema, Denies lightheadedness, Denies palpitations, Denies dyspnea, Denies dyspnea on exertion and Denies orthopnea Resp Denies cough, Denies dyspnea and Denies dyspnea on exertion GI Denies hematochezia and Denies change in stool character Musc Denies abnormal gait, Denies muscle cramps, Denies muscle weakness, Denies numbness, Denies radiating pain into limb and Denies tingling Neuro Denies abnormal gait, Denies dizziness, Denies syncope, Denies numbness, Denies tingling and Denies weakness Endo Denies palpitations Physical Exam Vital Signs: Last Vital Signs Pulse 85 06/24/23 14:20 BP 112/70 06/24/23 14:20 BMI result Body Mass Index 27.3 Const General: comfortable and no acute distress Orientation/consciousness: patient oriented x3 HEENT Other: Unremarkable Head: Yes normal to inspection Neck Neck: Yes normal visual inspection Chest Chest palpation & inspection: normal inspection of the chest Resp Auscultation: clear to auscultation bilaterally Cardio Other: Normal prosthetic heart sounds GI Palpation (GI): Soft to palpation Back/Spine/Pelvis Other: unremarkable Skin General skin exam: no rashes or lesions noted Neuro General: patient oriented x3 Extrem General: Yes normal to inspection Psych Mental Status: mental status grossly normal Assessment & Plan Assessment & Plan (1) Status post mechanical aortic valve replacement: Code(s): Z95.2 - Presence of prosthetic heart valve (2) Infarction of kidney: Code(s): N28.0 - Ischemia and infarction of kidney Plan Recent EKG shows mild sinus tachycardia with left bundle-branch block and PVCs. Echocardiogram with LVEF of 55-60%. Normal function mechanical aortic valve. Mean gradient across the valve was 9 mm Hg. Effective orifice area 1.9 sq cm. Ascending aortic size 4.1 cm. I am not entirely clear why the patient had renal emboli as the mechanical aortic valve seems to be function normally on the echocardiogram as well as the fact that he also had therapeutic INRs during hospitalization. There is no known history of atrial fibrillation. There is no evidence of cardiomyopathy either. Currently, patient states he is back to his baseline. We will plan on getting a fluoroscopy of the mechanical aortic valve to assess the leaflet motion just to be sure. Will also get a 30 day monitor to assess for any underlying atrial fibrillation. In the interim, continue aspirin plus Coumadin. [facility] gets the INR checks done and assess the previous levels, if therapeutic or not. Discussed with patient using bilingual interpreter. He understands and agrees. Orders: Orders IR fluoroscopy <1hr Today Z95.2 - Presence of prosthetic heart valve ECG 30 day event monitor Today I48.0 - Paroxysmal atrial fibrillation Medications: Changed From nifedipine ER 30 mg See Protocol PO DAILY 30 tabs 0RF To nifedipine ER 30 mg See Protocol PO DAILY Coding Level of Care Code Est Pt Level 4 (65295) Diagnoses Status post mechanical aortic valve replacement Z95.2 Infarction of kidney N28.0
[2023-06-24 14:20] VITALS: BP 112/70; PULSE 85; BMI 27.3
== END 2023-06-24 15:11 | disposition home or self-care (01) ==
PROVIDERS: PCP Physician Assistant; Visit Provider Internal Medicine
DX: Z95.2 Presence of prosthetic heart valve (principal); N28.0 Ischemia and infarction of kidney
CPT/HCPCS: 99214

== ENCOUNTER → 2023-06-24 14:14 | Outpatient (BNVA) | payer OTHER, SELFPAY | PROVIDERS: PCP Physician Assistant; Visit Provider Internal Medicine | DX: N28.0 Ischemia and infarction of kidney (principal); Z95.2 Presence of prosthetic heart valve | CPT/HCPCS: 99212 ==

== ENCOUNTER 2023-06-30 14:30 | Outpatient (AMB) | payer OTHER, SELFPAY ==
[2023-06-30 14:37] VITALS: BP 124/80; PULSE 101; BMI 28.1
--- NOTE | 2023-06-30 14:37 | HO.NEPHOV_ITS ---
HPI HPI Comments History of Present Illness Details I had the privilege of seeing in consultation for transfer of his renal care to [facility]. He is a 73 year old gentleman with H/O CKD for many years. He is uncertain what led to his CKD. He has H/O vascular disease as well as AVR ( mechanical valve). He has been maintained on Coumadin. He recently presented to hospital with sudden onset of abdominal pain. CT scan with IV contrast showed wedge shaped perfusion defect in the left kidney consistent with a renal infarct. It was thought to be embolic event despite him being on the anticoagulation. It was not sure whether he had a defect in the renal vascula ture with a dissection causing renal infarct.He was seen by Cardiology colleagues. At that time he also had mild MARCIO which has improved. It was thought that he may incur some worsening of his chronic kidney disease as a consequence of the infarct. Hiis abdominal pain is resolved. He has no flank pain, nausea, vomiting, diarrhea, edema, hematuria, urinary symptoms or orthostasis. He denies CAD, carotid stenosis, CVA, AGUILA, PAD, CHF. He denies taking excess NSAID's, renal calculus, new bone or back pain, epistaxis, hemetemesis, melena, photosensitivity or skin rashes. He is compliant with medications and good hydration. He is not a diabetic. His last serum creatinine was 1.49 [facility] Medical History (Updated 07/03/23 @ 21:13 by Regino Mckoy MD) Hypertension BPV (benign positional vertigo) BPH (benign prostatic hyperplasia) HLD (hyperlipidemia) Surgical History Status post mechanical aortic valve replacement Mechanical heart valve present Family History Mother Pacemaker Father No problems noted. Social History Household Members: None Housing: Apartment Do you presently have visiting nurse or other home services: No Patient Tobacco Use Status: Never used Tobacco service: No Vital Signs 06/30/23 14:37 Height 5 ft 9 in Weight 190 lb 4 oz BMI 28.1 BP 124/80 Blood Pressure Location Lt brachial Position Sitting Pulse 101 H Pulse Source Pulse Oximeter Physical Exam Vital Signs: Last Vital Signs Pulse 101 H 06/30/23 14:37 BP 124/80 06/30/23 14:37 BMI result Body Mass Index 28.1 Assessment & Plan Assessment & Plan (1) Hypertension: Code(s): I10 - Essential (primary) hypertension Qualifiers: Hypertension type: primary hypertension Qualified Code(s): I10 - Essential (primary) hypertension (2) CKD (chronic kidney disease) stage 3, GFR 30-59 ml/min: Code(s): N18.30 - Chronic kidney disease, stage 3 unspecified Qualifiers: Chronic kidney disease stage 3 subtype: stage 3a (GFR 45-59) Qualified Code(s): N18.31 - Chronic kidney disease, stage 3a (3) Infarction of kidney: Code(s): N28.0 - Ischemia and infarction of kidney Plan Has H/O CKD for many years. He is uncertain what led to his CKD. He has H/O vascular disease as well as AVR ( mechanical valve). He has been maintained on Coumadin. He recently presented to hospital with sudden onset of abdominal pain. CT scan with IV contrast showed wedge shaped perfusion defect in the left kidney consistent with a renal infarct. It was thought to be embolic event despite him being on the anticoagulation. It was not sure whether he had a defect in the renal vasculature with a dissection causing renal infarct. His BP is at goal.He is not on ACEI/ARB. He is on statins. I shall re image his renal vessels in the future. He will be a candidate for SGLT2 I. I may re introduce low dose ARB if his renal function and serum K permit. Work up ordered. Answered all his questions. Time spent retrieving data, patient encunter and documentation 39 minutes, Follow up given Orders: Orders Electrolytes 06/30/23 I10 - Essential (primary) hypertension, N18.30 - Chronic kidney disease, stage 3 unspecified, N28.0 - Ischemia and infarction of kidney Blood Urea Nitrogen 06/30/23 I10 - Essential (primary) hypertension, N18.30 - Chronic kidney disease, stage 3 unspecified, N28.0 - Ischemia and infarction of kidney UA and rflx microscopic 06/30/23 I10 - Essential (primary) hypertension, N18.30 - Chronic kidney disease, stage 3 unspecified, N28.0 - Ischemia and infarction of kidney Vitamin D 25-OH Total 06/30/23 I10 - Essential (primary) hypertension, N18.30 - Chronic kidney disease, stage 3 unspecified, N28.0 - Ischemia and infarction of kidney Creatinine 06/30/23 I10 - Essential (primary) hypertension, N18.30 - Chronic kidney disease, stage 3 unspecified, N28.0 - Ischemia and infarction of kidney Calcium 06/30/23 I10 - Essential (primary) hypertension, N18.30 - Chronic kidney disease, stage 3 unspecified, N28.0 - Ischemia and infarction of kidney Protein Creatinine Ratio, Ur 06/30/23 I10 - Essential (primary) hypertension, N18.30 - Chronic kidney disease, stage 3 unspecified, N28.0 - Ischemia and infarction of kidney PTHI 06/30/23 I10 - Essential (primary) hypertension, N18.30 - Chronic kidney disease, stage 3 unspecified, N28.0 - Ischemia and infarction of kidney Coding Level of Care Code New Pt Level 4 (14662) Diagnoses Primary hypertension I10 Hypertension type: primary hypertension Stage 3a chronic kidney disease N18.31 Chronic kidney disease stage 3 subtype: stage 3a (GFR 45-59) Infarction of kidney N28.0
== END 2023-06-30 15:03 | disposition home or self-care (01) ==
PROVIDERS: PCP Physician Assistant; Visit Provider Internal Medicine Nephrology
DX: I10 Essential (primary) hypertension (principal); N18.31 Chronic kidney disease, stage 3a; N28.0 Ischemia and infarction of kidney
CPT/HCPCS: 99204

== ENCOUNTER → 2023-06-30 14:30 | Outpatient (BNVA) | payer OTHER, SELFPAY | PROVIDERS: PCP Physician Assistant; Visit Provider Internal Medicine Nephrology | DX: I12.9 Hypertensive chronic kidney disease with stage 1 through stage 4 chronic kidney disease, or unspecified chronic kidney disease (principal); N18.31 Chronic kidney disease, stage 3a; N28.0 Ischemia and infarction of kidney | CPT/HCPCS: 99202 ==

== ENCOUNTER → 2023-07-21 13:46 | Outpatient (REF) | payer OTHER, SELFPAY ==
--- NOTE | 2023-07-18 19:30 | P.PNNP_ITS ---
Subjective Subjective Date of Service: 07/18/23 Principal diagnosis: CKD 3, h/o RENAL INFARCT Interval history: PT seen today in f/u after 05/2023 [facility]. He request continued care with me in [facility] Full note in [employer] EHR Procedures Date of Service Date of Service: 07/18/23 Assessment & Plan Time Spent With Patient Time: Total time managing care of this patient today ____ minutes.
--- NOTE | 2023-07-21 13:48 | HM_ITS ---
* Procedure length 55 days. Wear time 14.7 days. * Underlying rhythm is sinus with an average ventricular rate of 78/Min. * Occasional ventricular ectopy with a burden of 1.5%. * Rare supraventricular ectopy. * No symptoms mentioned in patient diary. MTDD
== END ==
LOC: HO.CARD 13:46
PROVIDERS: PCP Physician Assistant; Visit Provider Internal Medicine
DX: I48.0 Paroxysmal atrial fibrillation (principal)
CPT/HCPCS: 93270

== ENCOUNTER → 2023-07-21 13:48 | Outpatient (BNV) | payer OTHER, SELFPAY | PROVIDERS: PCP Physician Assistant; Visit Provider Internal Medicine | DX: R00.0 Tachycardia, unspecified (principal) | CPT/HCPCS: 93272 ==